=== PATIENT | male | born 1970 | race Asian ===

== ENCOUNTER 2024-06-02 14:40 | Outpatient (AMB) | payer OTHER, SELFPAY ==
--- NOTE | 2024-06-02 14:27 | MHC.PC.OV ---
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 Intake Note: New patient visit Healthcare Science Specialist Required: Yes Healthcare Science Specialist Language: Urdu Healthcare Science Specialist Name: Fran [phone] Allergies No Known Allergies Allergy (Verified 06/02/24 14:55) Medication List - Last Reconciled 06/02/24 by Carrie Govea PA-C losartan mg PO DAILY rosuvastatin mg PO DAILY Tobacco use date assessed: 06/02/24 Dental Screening Dental Screen Date: 06/02/24 Did you have a dental visit in the last 12 months?: Yes Did you have a dental problem in the last 6 months where you did not have access to dental care?: No Was dental information given to patient?: Patient has dentist HPI DESIGN LEAD Establish Care HPI Details Patient is a 54-year-old male who presents today to establish care. He has a history of bilateral shoulder pain, elbow pain, hypertension and hyperlipidemia. He is transferring from [facility] and was last seen 3 months ago. Healthcare Science Specialist #[id number] is used today CV: Blood pressure today in the office 138/76. He is currently on losartan 25 mg. He is on rosuvastatin 5 mg, no myalgias Musculoskeletal: He reports bilateral shoulder and elbow pain that started about 2 years ago. He states it feels stiff and achy and is worse at night. No known trauma. No joint swelling. He has tried NSAID without improvement. He states that he has imaging done over a year ago and states he was told everything was normal. 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 1. Little interest or pleasure in doing things: not at all 2. Feeling down, depressed, or hopeless: not at all 3. Trouble falling or staying asleep, or sleeping too much: not at all 4. Feeling tired or having little energy: not at all 5. Poor appetite or overeating: not at all 6. Feeling bad about yourself - or that you are a failure or have let yourself or your family down: not at all 7. Trouble concentrating on things, such as reading the newspaper or watching television: not at all 8. Moving or speaking so slowly that other people could have noticed. Or the opposite - being so fidgety or restless that you have been moving around a lot more than usual: not at all 9. Thoughts that you would be better off or of hurting yourself in some way: not at all Total score: 0 Depression Screening Interpretation: Negative Depression Screening Done: Yes 79978 - PHQ-9 Billing: Yes Source: Developed by Drs. Sky Meek, Erika Chávez, Jessee Joel and colleagues, with an educational jessica from [employer]. Thrive Questionnaire Date Thrive assessed: 06/02/24 I am a: Patient What is your living situation today?: I do not have a steady places to live Within the past 12 months, did the food you bought not last and you didn't have the money to get more?: Never true Within the past 12 months, did you worry whether your food would run out before you got money to buy more?: Never true Do you have trouble paying for medicines?: No Do you have trouble getting transportation to medical appointments?: No Do you have trouble paying your heating and electricity bill?: No Do you have trouble taking care of your child, family member or friend?: No Do you have trouble with day-to-day activities such as bathing, preparing meals, shopping, managing finances, etc.?: No Are you currently unemployed and looking for a job?: No Are you interested in more education?: No Please select the resources that you would like help with: None Currently or been in a relationship where the following occur: No concerns reported THRIVE Score: 1 AUDIT C Alcohol Use Questionnaire (AUDIT-C) 1. How often do you have a drink containing alcohol?: Monthly or less 2. How many drinks containing alcohol do you have on a typical day when you are drinking?: 1 or 2 3. How often do you have six or more drinks on one occasion?: Never Total Score: 1 TESS-7 AMB Questionnaire TESS-7 Date TESS - 7 assessed: 06/02/24 Feeling nervous, anxious, or on edge: 0 = Not at all Not being able to stop or control worryin = Not at all Worrying too much about different things: 0 = Not at all Trouble relaxin = Not at all Being so restless that it is hard to sit still: 0 = Not at all Becoming easily annoyed or irritable: 0 = Not at all Feeling afraid as if something awful might happen: 0 = Not at all Total TESS-7 score (0-4 normal; 5-9 mild; 10-14 moderate; 15-21 severe): 0 Source: Developed by Drs. Sky Meek, Erika Chávez, Jessee Joel and colleagues, with an educational jessica from [employer]. TESS-7 Assessment Billing TESS-7 Assessment Tool: TESS-7 Assessment 03336 Physical exam (Primary Care) Tobacco/Smoking Status: Tobacco use Status Tobacco use date assessed 06/02/24 06/02/24 14:29 Patient Tobacco Use Status Never used Tobacco 06/02/24 14:29 e-Cigarette/Vaping Use Never Used 06/02/24 14:29 Depression Screening Interpretation: Negative Currently or been in a relationship where the following occur: No concerns reported Const Orientation/consciousness: patient oriented x3 HENMT Ears: hearing grossly normal bilaterally Neck Thyroid: Thyroid normal Lymphatic: no lymphadenopathy noted Resp Auscultation: clear to auscultation bilaterally Cardio Rate: regular rate Rhythm: regular rhythm Heart sounds: S1 normal heart sound present and S2 normal heart sound present GI Inspection: Yes normal to inspection Palpation (GI): Soft to palpation and Other GI palpation findings present (nontender, no cva tenderness) Auscultation: normoactive bowel sounds Rectal Exam - Male: Yes deferred Skin General skin exam: no rashes or lesions noted Neuro General: patient oriented x3, gait normal and no focal motor deficits Coding Level of Care Code New Pt Level 4 (37641) Complex EM visit Add On G2211 Diagnoses Primary hypertension I10 Hypertension type: primary hypertension Dyslipidemia E78.5 Polyarthralgia M25.50 Chronic pain of both shoulders M25.511; M25.512; G89.29 Chronicity: chronic Bilateral elbow joint pain M25.521; M25.522 Additional Codes PHQ-9 - 56774 - PHQ-9 Billing: Yes ([id number]) TESS-7 Assessment Billing - TESS-7 Assessment Tool: TESS-7 Assessment 97517 ([id number]) Assessment & Plan Assessment & Plan (1) HTN (hypertension): Code(s): I10 - Essential (primary) hypertension Category: Medical Qualifiers: Hypertension type: primary hypertension Qualified Code(s): I10 - Essential (primary) hypertension Plan: wnl continue losartan (2) Dyslipidemia: Code(s): E78.5 - Hyperlipidemia, unspecified Category: Medical Plan: will hold crestor x 3-4 weeks to see if myalgias and joint pains improve (3) Polyarthralgia: Code(s): M25.50 - Pain in unspecified joint Category: Medical Plan: xrs ordered labs ordered 1 month follow up short term follow up (4) Bilateral shoulder pain: Code(s): M25.511 - Pain in right shoulder; M25.512 - Pain in left shoulder Category: Medical Qualifiers: Chronicity: chronic Qualified Code(s): M25.511 - Pain in right shoulder; M25.512 - Pain in left shoulder; G89.29 - Other chronic pain Plan: see above (5) Bilateral elbow joint pain: Code(s): M25.521 - Pain in right elbow; M25.522 - Pain in left elbow Category: Medical Plan: see above Orders: Orders Comprehensive [place]. Panel Fast Today E78.5 - Hyperlipidemia, unspecified, I10 - Essential (primary) hypertension Hemoglobin A1c Today E78.5 - Hyperlipidemia, unspecified, I10 - Essential (primary) hypertension, R73.01 - Impaired fasting glucose TSH reflex Free T4 Today E78.5 - Hyperlipidemia, unspecified, I10 - Essential (primary) hypertension Rheumatoid Factor Today M25.50 - Pain in unspecified joint, M25.511 - Pain in right shoulder, M25.512 - Pain in left shoulder, M25.521 - Pain in right elbow, M25.522 - Pain in left elbow XR shoulder LT min 2V Today M25.50 - Pain in unspecified joint, M25.511 - Pain in right shoulder, M25.512 - Pain in left shoulder, M25.521 - Pain in right elbow, M25.522 - Pain in left elbow Complete Blood Count Auto Diff Today E78.5 - Hyperlipidemia, unspecified, I10 - Essential (primary) hypertension UA CC w/rflx Micro + Cult Today E78.5 - Hyperlipidemia, unspecified, I10 - Essential (primary) hypertension, Z13.220 - Encounter for screening for lipoid disorders Lipid Panel Today E78.5 - Hyperlipidemia, unspecified, I10 - Essential (primary) hypertension Lyme IgG/IgM w/reflex to WB Today M25.50 - Pain in unspecified joint, M25.511 - Pain in right shoulder, M25.512 - Pain in left shoulder, M25.521 - Pain in right elbow, M25.522 - Pain in left elbow Erythrocyte Sedimentation Rate Today M25.50 - Pain in unspecified joint, M25.511 - Pain in right shoulder, M25.512 - Pain in left shoulder, M25.521 - Pain in right elbow, M25.522 - Pain in left elbow LUANN Reflex Titer and Pattern Today M25.50 - Pain in unspecified joint, M25.511 - Pain in right shoulder, M25.512 - Pain in left shoulder, M25.521 - Pain in right elbow, M25.522 - Pain in left elbow XR shoulder RT min 2V Today M25.50 - Pain in unspecified joint, M25.511 - Pain in right shoulder, M25.512 - Pain in left shoulder, M25.521 - Pain in right elbow, M25.522 - Pain in left elbow XR elbow LT min 3V Today M25.50 - Pain in unspecified joint, M25.511 - Pain in right shoulder, M25.512 - Pain in left shoulder, M25.521 - Pain in right elbow, M25.522 - Pain in left elbow XR elbow RT min 3V Today M25.50 - Pain in unspecified joint, M25.511 - Pain in right shoulder, M25.512 - Pain in left shoulder, M25.521 - Pain in right elbow, M25.522 - Pain in left elbow Prostate Specific Antigen Scr Today Z01.89 - Encounter for other specified special examinations Referrals Orthopedics Referral M25.511 - Pain in right shoulder, M25.512 - Pain in left shoulder, M25.521 - Pain in right elbow, M25.522 - Pain in left elbow Gastroenterology Referral Z12.11 - Encounter for screening for malignant neoplasm of colon Medications: New diclofenac sodium 1% (Voltaren Arthritis Pain) 4 grams topical QID 100 grams 4RF losartan 25 mg PO DAILY 90 tabs 3RF
[2024-06-02 15:01] VITALS: BP 138/76; PULSE 64; RESP 14; O2SAT 98; BMI 25.0
--- OUTSIDE RECORDS SUMMARY | 2024-06-02 17:18 | XMS_ITS | Clinical Summary ---
Author Organization [facility] Address [address] [place] [address] Care Team Providers Care Liner Worker Name Role Phone Maribeth Campa PA-C Primary Care Provider [phone] Source Comments PLEASE NOTE, if this patient is a minor, it may be UNLAWFUL to discuss sensitive information that is contained in these records (such as FAMILY PLANNING, MENTAL HEALTH or SUBSTANCE ABUSE) with the minor patient's parent or other person without the patient's specific authorization.[facility] Allergies No known active allergies Medications acetaminophen (TYLENOL) 325 mg tabletIndication s:Left elbow pain Take 1 Tablet by mouth every 6 (six) hours as needed for pain 30 Tablet 1 4 Active fenofibric acid, choline, (TRILIPIX) [address] capsuleIndicatio ns:Mixed hyperlipidemia,H ypertriglyceride maurizio Take 1 Capsule by mouth once daily New Rx. Patient to discontinue Gemfibrozil 90 Capsule 4 Active losartan (COZAAR) 25 mg tabletIndication s:Primary hypertension Take 1 Tablet by mouth every morning for blood pressure 90 Tablet 1 4 Active rosuvastatin (CRESTOR) 5 mg tabletIndication s:Mixed hyperlipidemia,H ypertriglyceride maurizio Take 1 Tablet by mouth nightly at bedtime New Rx. 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 No significant effusion Rash at rt leg delcid region 03/22/2020 Dizziness 01/07/2019 Overview (01/04/2022): 12/26/2021: Rayus: MRI of head: FINDINGS: No diffusion abnormalities are identified to suggest an acute or subacute infarct. No mass effect or midline shift is seen. The ventricles and sulci are slightly commensurately prominent consistent with diffuse loss. There are scattered areas of hyperintense T2 and FLAIR signal in the periventricular and subcortical white matter, and in the garcía which are most consistent with chronic microvascular ischemic changes. No extra-axial fluid collections are seen. The cerebellum appears normal. On postcontrast imaging, there is no abnormal parenchymal or leptomeningeal enhancement. No pathologic magnetic susceptibility artifact is identified on the gradient refocused acquisition. The craniovertebral junction, marrow signal, and midline structures are normal. The major intracranial flow-voids at the level of the venetie ira of [place] are preserved. The dural venous sinus flow-voids are maintained. The mastoid air cells are well-aerated. There is mucoperiosteal thickening in the bilateral maxillary and ethmoid sinuses and in the right greater than left sphenoid sinuses. IMPRESSION: 1. There are no acute bleeds or territorial infarcts. No masses are demonstrated. There are no masses or areas of abnormal enhancement. 2. There are chronic microvascular ischemic changes and there is diffuse volume loss. Tendinitis of right shoulder 01/07/2019 Hyperthyroidism 08/26/2018 Low back pain 04/22/2018 Overview (10/25/2018): 04/20/18 - 05/31/18: [facility] 2x/wk x 6 wks 09/19/18 - Lumbar xray: no acute findings. Mild degenerative changes. Lichen simplex chronicus 01/31/2016 Left shoulder pain 05/02/2015 Overview (03/11/2019): Going to [facility] With [facility] at [facility] EMG negative 02/22/15 - xray left shoulder: negative. Hypertriglyceridemia 01/12/2013 Vitamin D deficiency disease 01/12/2013 HTN (hypertension) 01/12/2013 Encounters Date Type Department Care Team Description 03/25/2024 11:00 AM EST Office Visit [address] [phone] Deep Odom, PharmD Ena Bolanos Hypertension, unspecified type (Primary Dx); Medication management 03/25/2024 Travel from Last 3 Months Immunizations Name Administration Dates Next Due Flu, Preservative Free 12/25/2022,2020,12/21/2019,2018,04/23/2017 Hep B, Adult/Adol (ENERGIX/RECOMBIVAX) 07/22/2012,08/15/2011,07/16/2011 INFLUENZA, SEASONAL, INJECTABLE 12/26/19 16,01/12/2015,03/30/2014,2011 INFLUENZA, SEASONAL, INJECTA BLE, PRESERVATIVE FREE 01/12/2013 MMR (MMR II/Priorix) 06/12/2011,02/05/2011 TDAP 06/12/2023,06/12/2011 Td(adult),2 Lf tetanus toxoid,preservative free 02/05/2011 Family History Medical History Relation Name Comments Asthma Father Asthma Mother Hypertension Mother Relation Name Status Comments Brother Alive Father Mother Alive Sister 1 Alive Sister 2 Alive Social History Tobacco Use Types Packs/Day Years Used Date Smoking Tobacco: Former Cigarettes Passive Smoke Exposure: Never Smokeless Tobacco: Former Chew Tobacco Cessation:Counseling Given: Not Answered Comments:chewing tobacco since age 14; Alcohol Use Standard Drinks/Week Comments No 0 (1 standard drink = 0.6 oz pur e alcohol) Social Connections Answer Date Recorded Connectedness 0 12/08/2023 Financial Resource Strain Answer Date R ecorded Financial Resource Strain 0 2018 Stress Answer Date Recorded Stress 0 11/11/2018 Physical Activity Answer Date Recorded Physical Activity 0 11/11/2018 Food Insecurity Answer Date Recorded Food 0 12/18/2023 Transportation Needs Answer Date Record ed Transportation 0 11/11/2018 Housing Stability Answer Date Recorded Housing 0 11/11/2018 Safety and Environment Answer Date Cholo rded Safety 0 11/11/2018 Utilities Answer Date Recorded Utilities 0 11/11/2018 Employment Answer Date Recorded Stress 0 12/08/2023 Sex and Gender Information Value Date Recorded Sex Assigned at Male 12/16/2016 8:31 AM PDT Legal Sex Male 11:36 AM PDT Gender Identity Male 12/16/2016 8:31 AM PDT Sexual Orientation Straight 12/16/2016 8: 31 AM PDT 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 Not on file Not on file Not on file Last Filed Vital Signs Vital Sign Reading Time Taken Comments Blood Pressure 124/80 03/25/2024 10:46 AM EST Pulse 88 03/25/2024 10:46 AM EST Temperature 36.9 ??C (98.4 ??F) 03/25/2024 10:[address] Respiratory Rate 16 03/25/2024 10:46 AM EST Oxygen Saturation 99% 03/25/2024 10:46 AM EST Inhaled Oxygen Concentration - - Weight 83.6 kg (184 lb 4.8 oz) 03/25/2024 10:46 AM EST Height 180.3 cm (5' 11 ) 03/25/2024 10:46 AM EST Body Mass Index 25.7 03/25/2024 10:46 AM EST Plan of Treatment Upcoming Encounters Date Type Department Care Team (Late st Contact Info) Description 06/30/2024 1:00 PM EDT Office Visit [facility] [address] [place] [phone] Deep Odom, PharmD [address] [place] [address] 07/14/2024 10:40 AM EDT Office Visit [facility] [address] [place] [phone] Maribeth Campa PA-C [address] [place] [address] Health Maintenance Due Date Last Done Comments CT Colonography 2014 Colonoscopy 2014 Colorectal Cancer Screening 2014 FIT/gFOBT 2014 Fecal DNA 2014 Flexible Sigmoidoscopy 2014 Imm-Zoster, Recombinant (1 of 2) 2019 Depression Annual Screen 2024 06/12/2023, 03/25 Annual Preventive Care Visit 06/11/2024, 08/26/2018, 04/23/2017, Additional history exists Tobacco Screening 10/01/2024 10/02/2023, , 04/23/2017 Dental BW 12/16/2024 12/15/2023, 05/22, 10/23/2022, Additional history exists Dental Examination 12/16/2024 12/15/2023, 0 06/05/2023, 10/23/2022, Additional history exists Dental Perio Charting 12/16/2024 12/15/2023 , 06/05/2023, 10/23/2022, Additional history exists Dental Prophy 12/16/2024 12/15/2023, 05/22, 10/23/2022 Lipid Screening 12/24/2024 12/25/2023, 09/21, 06/18/2023, Additional history exists Diabetes Screening 12/24/2026 12/25/2023, 0 10/04/2023, 06/18/2023, Additional history exists Dental FMX/Pano 02/02/2027 01/31/2022 Imm-DTaP/Tdap/Td (3 - Td or Tdap) 06/11/2033 06/12/2023, 06/12/2011, 02/05/2011 Imm-Hepatitis B Completed 07/22/2012, 07/23, 07/16/2011 HIV Screening Completed 01/20/2013 Hepatitis C Screening Completed 01/20/2013 [id number] Completed 12/24/2023, 12/22, 03/13/2021, Additional history exists Imm-Influenza Completed 12/24/2023, 06/2022, 02/20/2022, Additional history exists Alcohol and Drug Screen Completed 03/25/19, 06/12/2023, 06/19/2022, Additional history exists Goals Goal Patient Goal Type Associated Problems Recent Progress Patient-Stated? Author Blood Pressure < 140/90 Blood Pressure HTN (hypertension) 124/80( 025 10:46 AM EST) No Vandana Chávez, Zaira Procedures Procedure Name Priority Date/Time Associated Diagnosis Comments ASSAY OF BLOOD/URIC ACID Routine 03/31/2024 9:37 AM EST Hyperuricemia COMPREHENSIVE METABOLIC PANEL Routine 12/25/2023 9:53 AM EDT Mixed hyperlipidemia Hypertriglyceridem ia LIPID PANEL Routine 12/25/2023 9:53 AM EDT Mixed hyperlipidemia Hypertriglyceridem ia COMP PERIODONTAL EVALUATION - NEW/EST PATIENT Routine 12/15/2023 9:40 AM EDT [facility] BITEWINGS - FOUR RADIOGRAPHIC IMAGES Routine 12/15/2023 9:40 AM EDT [facility] PROPHYLAXIS - ADULT Routine 12/15/2023 9 :40 AM EDT [facility] PERIODIC ORAL EVALUATION ESTABLISHED PATIENT Routine 12/15/2023 9:40 AM EDT [facility] INTRAORAL - COMP SERIES OF RADIOGRAPHIC IMAGES Routine 01/31/2022 2:20 PM EST Gingivitis, chronic, plaque induced ANTIBODY HIV-1&HIV-2 SINGLE RESULT Routine 01/20/2013 3:16 PM EDT Needle stick injury ACUTE HEPATITIS PANEL Routine 01/20/2013 3:16 PM EDT Needle stick injury from Last 3 Months or Most Recently Relevant to Health Maintenance Results * ASSAY OF BLOOD/URIC ACID (03/31/2024 9:37 AM EST) URIC ACID 4.8 4.0 - 8.0 mg/dL [facility] Comment: Therapeutic target for gout patients: <6.0 mg/dL ?? Blood Blood / Unknown 03/31/2024 9 :37 AM EST 03/31/2024 9:37 AM EST Narrative [facility] - 04/01/2024 3:17 AM EST FASTING:YES us Maribeth Campa PA-C LAB - BLOOD DRAW Final Resu lt [facility] [address] [address], [facility] [address] [place] [address] * (ABNORMAL) LIPID PANEL (12/25/2023 9:53 AM EDT) CHOLESTEROL, TOTAL 311(H) <200 mg/dL [employer] [facility] HDL CHOLESTEROL 40 > OR = 40 mg/dL [employer] [facility] TRIGLYCERIDES 2,415(H) <150 mg/dL [facility] Comment: Verified by repeat analysis. If a non-fasting specimen was collected, consider repeat triglyceride testing on a fasting specimen if clinically indicated. Giron et al. J. of Clin. Lipidol. 2015;9:129-169. There is increased risk of pancreatitis when the triglyceride concentration is very high (> or = 500 mg/dL, especially if > or = 1000 mg/dL). Giron et al. J. of Clin. Lipidol. 2015;9:129-169. LDL-CHOLESTEROL See Note [facility] Comment: LDL cholesterol not calculated. Triglyceride levels greater than 400 mg/dL invalidate calculated LDL results. Reference range: <100 Desirable range <100 mg/dL for primary prevention; ?? <70 mg/dL for patients with CHD or diabetic patients with > or = 2 CHD risk factors. LDL-C is now calculated using the Gabriele-Mary calculation, which is a validated novel method providing better accuracy than the Friedewald equation in the estimation of LDL-C. Gabriele SS et al. CURTIS. 2013;310(19): 0015-9415 (http://education.Graftworx.SDI/faq/DNT973) CHOL/HDLC RATIO 7.8(H) <5.0 (calc) [employer] [facility] NON-HDL CHOLESTEROL 271(H) <130 mg/dL (calc) [facility] Comment: Non-HDL level > or = 220 is very high and may indicate genetic familial hypercholesterolemia (FH). Clinical assessment and measurement of blood lipid levels should be considered for all first-degree relatives of patients with an FH diagnosis. For patients with diabetes plus 1 major ASCVD risk factor, treating to a non-HDL-C goal of <100 mg/dL (LDL-C of <70 mg/dL) is considered a therapeutic option. Blood Blood / Unknown 12/25/2023 9 :53 AM EDT 12/25/2023 9:54 AM EDT Narrative [facility] - 12/26/2023 1:34 PM EDT FASTING:YES Maribeth Campa PA-C LAB - BLOOD DRAW Final Resu lt [facility] [address] [address], [facility] [address] [place] [address] * COMPREHENSIVE METABOLIC PANEL (12/25/2023 9:53 AM EDT) Pathologist [facility] GLUCOSE 97 65 - 99 mg/dL [facility] Comment: ?Fasting reference interval UREA NITROGEN (BUN) 15 7 - 25 mg/dL [facility] CREATININE (blood) 1.14 0.70 - 1.30 mg/dL [facility] EGFR 76 > OR = 60 mL/min/1. 73m2 [facility] BUN/CREATININE RATIO SEE NOTE: [facility] Comment: ?? Not Reported: BUN and Creatinine are within ?? reference range. ? SODIUM 135 135 - 146 mmol/L [facility] POTASSIUM 3.7 3.5 - 5.3 mmol/L [facility] CHLORIDE 101 98 - 110 mmol/L [facility] CARBON DIOXIDE 23 20 - 32 mmol/L [facility] CALCIUM 9.7 8.6 - 10.3 mg/dL [facility] PROTEIN, TOTAL 7.3 6.1 - 8.1 g/dL [facility] ALBUMIN 4.9 3.6 - 5.1 g/dL [facility] GLOBULIN 2.4 1.9 - 3.7 g/dL (calc) [facility] ALBUMIN/GLOBULI N RATIO 2.0 1.0 - 2.5 (calc) [facility] BILIRUBIN, TOTAL 0.7 0.2 - 1.2 mg/dL [facility] ALKALINE PHOSPHATASE 46 35 - 144 U/L [facility] AST 32 10 - 35 U/L [employer] [facility] [facility] Comment: Results slightly increased due to lipemia. ALT 35 9 - 46 U/L [facility] Blood Blood / Unknown 12/25/2023 9 :53 AM EDT 12/25/2023 9:54 AM EDT Narrative [facility] - 12/26/2023 1:34 PM EDT FASTING:YES us Maribeth Campa PA-C LAB - BLOOD DRAW Final Resu lt [facility] [address] [address], [place] [facility] [address] [place] [address] * HIV-1 & HIV-2 ANTIBODIES (01/20/2013 3:16 PM EDT) HIV 1 AND 2 ANTIBODY SCREEN NEGATIVE NEGATIVE [facility] Comment:Performer: [facility] (ML) Blood specimen (specimen) Blood / Unknown 01/20/2013 3:16 PM EDT 01/20/2013 3:18 PM EDT Narrative [facility] - 01/21/2013 8:07 AM EDT [facility] [address] [place] [address] [place] [id number] ORD# [id number] Mj Pond MD LAB - BLOOD DRAW Edited Performing Organization Address City/[facility]/ZIP Co de Phone Number [facility] [address] [place] [address], * (ABNORMAL) ACUTE HEPATITIS PANEL (01/20/2013 3:16 PM EDT) HEPATITIS B SURFACE ANTIGEN NEGATIVE NEGATIVE [facility] Comment:Performer: [facility] (ML) HEPATITIS C VIRUS ANTIBODY NEGATIVE NEGATIVE [facility] Comment:Performer: [facility] (ML) HEPATITIS B CORE ANTIBODY IGM NEGATIVE NEGATIVE [facility] Comment:Performer: [facility] (ML) HEPATITIS A ANTIBODY TOTAL POSITIVE(A) NEGATIVE [facility] Comment:Performer: [facility] (ML) Blood specimen (specimen) Blood / Unknown 01/20/2013 3:16 PM EDT 01/20/2013 3:18 PM EDT Narrative [facility] 01[facility]20/2013 7:00 PM EDT [facility] [address] [place] [address] PT ID [id number] ORD# [id number] us Mj Pond MD LAB - BLOOD DRAW Edited [facility] [address] [place] [address], from Last 3 Months or Most Recently Relevant to Health Maintenance Insurance [employer] Member Subscriber Plan / Payer (Ef fective 2024-Present) Name:Garcia Bnun Relation to Subscriber:Self Name:Garcia Bunn Payer ID:[id number] Type:Indemnity Address: [facility] [address] [place] [address] [employer] Care Teams Liner Worker Relationship Specialty Start Date End Date Maribeth Campa PA-C [facility] [place] [address] PCP - General Primary Care 03/11/23
== END 2024-06-02 15:39 | disposition home or self-care (01) ==
LOC: HO.HMCFM 14:41
PROVIDERS: PCP Physician Assistant; Visit Provider Physician Assistant
DX: I10 Essential (primary) hypertension (principal); E78.5 Hyperlipidemia, unspecified; M25.50 Pain in unspecified joint; M25.511 Pain in right shoulder; M25.512 Pain in left shoulder; G89.29 Other chronic pain; M25.521 Pain in right elbow; M25.522 Pain in left elbow

== ENCOUNTER → 2024-06-02 14:40 | Outpatient (BNVA) | payer OTHER, SELFPAY | PROVIDERS: PCP Physician Assistant; Visit Provider Physician Assistant | DX: I10 Essential (primary) hypertension (principal); E78.5 Hyperlipidemia, unspecified; M25.50 Pain in unspecified joint; M25.511 Pain in right shoulder; M25.512 Pain in left shoulder; G89.29 Other chronic pain; M25.521 Pain in right elbow; M25.522 Pain in left elbow | CPT/HCPCS: 96127; 99202 ==

== ENCOUNTER 2024-06-03 06:53 | Outpatient (REF) | payer OTHER, SELFPAY ==
--- NOTE | ~2024-06-03 | XR_ITS ---
EXAMINATION: XR ELBOW, RIGHT CLINICAL INFORMATION: M25.521 - Pain in right elbow COMPARISON: None available. TECHNIQUE: AP, lateral, and oblique views of the right elbow. FINDINGS: No fracture, dislocation, or suspicious bone lesion. Normal bone mineralization. Normal alignment. Joint spaces are preserved. No significant arthropathy. Epicondyles appear normal. No significant joint effusion. Soft tissues appear normal. XR/XR elbow RT min 3V IMPRESSION: Normal right elbow. Electronically signed by: Mario Friedman MD 06/03/2024 09:36 AM EDT
--- NOTE | ~2024-06-03 | XR_ITS ---
EXAMINATION: XR SHOULDER, RIGHT CLINICAL INFORMATION: M25.521 - Pain in right elbow COMPARISON: None available. TECHNIQUE: AP external rotation, Grashey, scapular Y, and axillary views of the right shoulder. FINDINGS: Normal bone mineralization. No fracture, dislocation, or suspicious bone lesion. Normal alignment. The glenohumeral joint is normal. The AC joint demonstrates minimal spurring of the superior surface. There is a type II acromion. No undersurface spurring. The subacromial space is preserved. Remainder of the soft tissue and bony structures appear normal. XR/XR shoulder RT min 2V IMPRESSION: Minimal spurring of the AC joint. Otherwise normal right shoulder. Electronically signed by: Mario Friedman MD 06/03/2024 09:38 AM EDT
--- NOTE | ~2024-06-03 | XR_ITS ---
EXAMINATION: XR ELBOW, LEFT CLINICAL INFORMATION: M25.521 - Pain in right elbow COMPARISON: None available. TECHNIQUE: AP, lateral, and oblique views of the left elbow. FINDINGS: No fracture, dislocation, or suspicious bone lesion. Normal bone mineralization. Normal alignment. Joint spaces are preserved. No significant arthropathy. Epicondyles appear normal. No significant joint effusion. Soft tissues appear normal. XR/XR elbow LT min 3V IMPRESSION: Normal left elbow. Electronically signed by: Mario Friedman MD 06/03/2024 09:35 AM EDT
--- NOTE | ~2024-06-03 | XR_ITS ---
EXAMINATION: XR SHOULDER, LEFT CLINICAL INFORMATION: M25.521 - Pain in right elbow COMPARISON: None available. TECHNIQUE: AP external rotation, Grashey, scapular Y, and axillary views of the left shoulder. FINDINGS: Normal bone mineralization. No fracture, dislocation, or suspicious bone lesion. Normal alignment. The glenohumeral joint is normal. The AC joint demonstrates minimal spurring of the superior surface. There is a type II acromion. No undersurface spurring. The subacromial space is preserved. Remainder of the soft tissue and bony structures appear normal. XR/XR shoulder LT min 2V IMPRESSION: Minimal spurring of the AC joint. Otherwise normal left shoulder. Electronically signed by: Mario Friedman MD 06/03/2024 09:37 AM EDT
[2024-06-03 07:35] LABS: MANUAL DIFF FLAG NO
[2024-06-03 08:41] LABS: Basophils Percent Auto 0.6 % (0-2); Eosinophils Absolute Auto 0.3 X10*3/uL (0.0-0.4); Eosinophils Percent Auto 5.3 % (0-4); Hematocrit 37.2 % (42.0-52.0); Hemoglobin 13.6 g/dl (14.0-18.0); Imm Gran Abs Auto 0.01 X10*3/uL (0.00-0.03); Imm Gran Pct Auto 0.2 % (0.0-0.4); Lymphocytes Absolute Auto 1.4 X10*3/uL (1.2-4.9); Lymphocytes Percent Auto 29.7 % (20-40); Mean Corpuscular HGB Conc 36.6 g/dl (31.0-36.0); Mean Corpuscular Hemoglobin 30.9 pg (27.0-33.0); Mean Corpuscular Volume 84.5 fL (80.0-98.0); Mean Platelet Volume 12.9 fL (9.4-12.4); Monocytes Absolute Auto 0.2 X10*3/uL (0.1-1.2); Monocytes Percent Auto 5.1 % (2-11); Neutrophils Absolute Auto 2.8 x10*3/uL (2.0-8.3); Neutrophils Percent Auto 59.1 % (45-73); Platelet Count 117 X10*3/uL (160-400); Red Cell Distribution Width 12.9 % (11.0-16.0); White Blood Count 4.8 X10*3/uL (4.8-10.8)
[2024-06-03 08:42] LABS: Estimated Average Glucose 103 mg/dL; Hemoglobin A1c % 5.2 % (<6.0)
[2024-06-03 08:44] LABS: Appearance Urine Clear; Color Urine Yellow; Glucose Urine UA Negative (Negative); Leukocyte Esterase Urine Negative (Negative); Nitrite Urine Negative (Negative); Specific Gravity - Urine 1.015 (1.005-1.025); Urine Blood Negative (Negative); Urine Ketones Negative (Negative); Urine Protein Negative (Neg-Trace)
[2024-06-03 09:19] LABS: Erythrocyte Sedimentation Rate 5 MM/HR (0-15)
[2024-06-03 09:32] LABS: Alanine Aminotransferase 45 U/L (0-40); Albumin Level 4.5 g/dL (3.5-5.0); Alkaline Phosphatase 55 U/L (39-117); Anion Gap 17 (12-20); Aspartate Amino Transferase 53 U/L (5-37); Bilirubin Total 0.5 mg/dL (0.0-1.0); Blood Urea Nitrogen 12 mg/dL (9-16); Calcium 9.2 mg/dL (8.4-10.2); Carbon Dioxide 17 mmol/L (22-29); Chloride 109 mmol/L (96-108); Cholesterol 258 mg/dL (<200); Estimated Glomerular Filt Rate > 60; Glucose Fasting 102 mg/dL (60-99); HDL Cholesterol 35 mg/dL (>40); Prostate Specific Antigen Scr 1.64 ng/mL (<0.05-4.0); Sodium 139 mmol/L (135-145); Total Protein 8.5 g/dL (6.5-8.0)
[2024-06-03 09:35] LABS: TSH reflex Free T4 0.53 uIU/mL (0.32-4.0)
[2024-06-03 11:19] LABS: Triglycerides 1826 mg/dL (<150)
[2024-06-04 13:23] LABS: Lyme Abs Screen <0.90 index
[2024-06-10 15:32] LABS: Anti Nuclear Antibody Screen NEGATIVE (NEGATIVE)
== END 2024-06-03 06:54 | disposition home or self-care (01) ==
LOC: HO.XRAY 06:53
PROVIDERS: PCP Physician Assistant; Visit Provider Physician Assistant
DX: M25.522 Pain in left elbow (principal); M25.521 Pain in right elbow; M25.511 Pain in right shoulder; M25.512 Pain in left shoulder; M25.50 Pain in unspecified joint; R73.01 Impaired fasting glucose; E78.5 Hyperlipidemia, unspecified; I10 Essential (primary) hypertension; Z13.220 Encounter for screening for lipoid disorders; Z01.89 Encounter for other specified special examinations
CPT/HCPCS: 36415; 73030; 73080; 80053; 80061; 81003; 83036; 84153; 84443; 85025; 85652; 86038; 86431; 86617; 86618

== ENCOUNTER → 2024-06-03 07:02 | Outpatient (BNV) | payer OTHER, SELFPAY | PROVIDERS: PCP Physician Assistant; Visit Provider Radiology Diagnostic Radiology | DX: M25.511 Pain in right shoulder (principal); M25.711 Osteophyte, right shoulder; M25.512 Pain in left shoulder; M25.712 Osteophyte, left shoulder; M25.521 Pain in right elbow; M25.522 Pain in left elbow | CPT/HCPCS: 73030; 73080 ==

== ENCOUNTER 2024-07-07 08:39 | Outpatient (AMB) | payer OTHER, SELFPAY ==
--- NOTE | 2024-07-07 08:46 | A.OFFPC_ITS ---
Vital Signs 07/07/24 08:50 07/07/24 09:00 Height 5 ft 11 in Weight 177 lb 2 oz BMI 24.7 BP 148/84 H 138/86 Blood Pressure Location Lt brachial Lt brachial Position Sitting Sitting Respiration 14 Pulse 63 Pulse Source Pulse Oximeter Pulse Oximetry (%) 100 Oxygen Delivery Method Room Air Intake Visit Reasons: labs, meds, joint pains Intake Note: Follow up labs, medication, joint pain. Commercial Subcontractor Required: Yes Commercial Subcontractor Language: [facility] Commercial Subcontractor Name: Jacob [id number] Allergies No Known Allergies Allergy (Verified 07/07/24 08:46) Medication List - Last Reconciled 07/07/24 by Carrie Govea PA-C allopurinol 300 mg PO DAILY diclofenac sodium 1% (Voltaren Arthritis Pain) 4 grams topical QID fenofibrate 160 mg PO DAILY fenofibric acid (choline) mg PO DAILY losartan 25 mg PO DAILY rosuvastatin 5 mg PO DAILY Tobacco use date assessed: 07/07/24 Dental Screening Dental Screen Date: 06/02/24 HPI labs, meds, joint pains HPI Details Patient is a 54-year-old male who presents today for a follow up. He is relatively new here in transfer from [facility]. He has a history of bilateral shoulder pain, elbow pain, hypertension and hyperlipidemia. [facility]or Emilio#[id number] is used today CV: Blood pressure today in the office 138/76. He is currently on losartan 25 mg. He is on rosuvastatin 5 mg and fenofibrate 160 mg daily. Last lipids were very elevated. Triglycerides were 1600. States that he is mostly compliant with fenofibrate and Crestor. He does not drink alcohol. He states that he could do a little bit better with the diet. Musculoskeletal: He reports bilateral shoulder and elbow pain that started about 2 years ago. He states it feels stiff and achy and is worse at night. No known trauma. No joint swelling. He has tried NSAID without improvement. He states that he has imaging done over a year ago and states he was told everything was normal. -he recently had labs completed which di d show rheumatoid factor positive. -he is booked with ortho. -x-rays were reviewed today in office. GI: Last LFTs were elevated. No known history of this per patient. He did have an ultrasound ordered but states that he did not know if he should book something. He did not repeat his liver tests are hepatitis panel. He states that he does not have any abdominal pain and discoloration of the skin. No nausea, vomiting or weight loss. No bloating. 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 [employer] Current occupational exposures/hazards: Yes (Works around chemicals) Cognitive needs: No Hearing needs: No Vision needs: Yes (glasses) Questionnaire Thrive Questionnaire Date Thrive assessed: 06/02/24 I am a: Patient What is your living situation today?: I choose not to answer this question Within the past 12 months, did the food you bought not last and you didn't have the money to get more?: I choose not to answer this question Within the past 12 months, did you worry whether your food would run out before you got money to buy more?: I choose not to answer this question Do you have trouble paying for medicines?: I choose not to answer this question Do you have trouble getting transportation to medical appointments?: I choose not to answer this question Do you have trouble paying your heating and electricity bill?: I choose not to answer this question Do you have trouble taking care of your child, family member or friend?: I choose not to answer this question Do you have trouble with day-to-day activities such as bathing, preparing meals, shopping, managing finances, etc.?: I choose not to answer this question Are you currently unemployed and looking for a job?: I choose not to answer this question Are you interested in more education?: I choose not to answer this question Please select the resources that you would like help with: None Currently or been in a relationship where the following occur: I choose not to answer THRIVE Score: 0 TESS-7 AMB Questionnaire TESS-7 Date TESS - 7 assessed: 06/02/24 Source: Developed by Drs. Sky Meek, Erika ChávezJessee and colleagues, with an educational jessica from [employer]. Physical exam (Primary Care) Vital Signs: Last Vital Signs Pulse 63 07/07/24 08:50 Resp 14 07/07/24 08:50 BP 138/86 07/07/24 09:00 Pulse Ox 100 07/07/24 08:50 Oxygen Delivery Method Room Air 07/07/24 08:50 BMI result Body Mass Index 24.7 Tobacco/Smoking Status: Tobacco use Status Tobacco use date assessed 07/07/24 07/07/24 08:51 Patient Tobacco Use Status Never used Tobacco 07/07/24 08:48 e-Cigarette/Vaping Use Never Used 07/07/24 08:48 Thrive Assessment: Date of Thrive Assessment Date Thrive assessed 06/02/24 07/07/24 08:48 Currently or been in a relationship where the following occur: I choose not to answer Const Orientation/consciousness: patient oriented x3 HENMT Ears: hearing grossly normal bilaterally Neck Thyroid: Thyroid normal Lymphatic: no lymphadenopathy noted Resp Auscultation: clear to auscultation bilaterally Cardio Rate: regular rate Rhythm: regular rhythm Heart sounds: S1 normal heart sound present and S2 normal heart sound present GI Inspection: Yes normal to inspection Palpation (GI): Soft to palpation and Other GI palpation findings present (nontender, no cva tenderness) Auscultation: normoactive bowel sounds Rectal Exam - Male: Yes deferred Skin General skin exam: no rashes or lesions noted Neuro General: patient oriented x3, gait normal and no focal motor deficits Coding Level of Care Code Est Pt Level 4 (39323) Complex EM visit Add On G2211 Diagnoses Elevated total protein R77.8 Anemia D64.9 Polyarthralgia M25.50 Dyslipidemia E78.5 Primary hypertension I10 Hypertension type: primary hypertension Elevated LFTs R79.89 Rheumatoid factor positive R76.8 Assessment & Plan Assessment & Plan (1) Elevated total protein: Code(s): R77.8 - Other specified abnormalities of plasma proteins Category: Medical Plan: labs ordered urine ordered will follow up pending tests (2) Anemia: Code(s): D64.9 - Anemia, unspecified Category: Medical Plan: labs ordered iron and b12 ordered colon ca screening ordered (3) Polyarthralgia: Code(s): M25.50 - Pain in unspecified joint Category: Medical Plan: continue diclofenac (4) Dyslipidemia: Code(s): E78.5 - Hyperlipidemia, unspecified Category: Medical Plan: increase crestor continue fenofibrate (5) HTN (hypertension): Code(s): I10 - Essential (primary) hypertension Category: Medical Qualifiers: Hypertension type: primary hypertension Qualified Code(s): I10 - Essential (primary) hypertension Plan: continue losartan 25 mg will recheck in 2 weeks and if elevated still will increase med (6) Elevated LFTs: Code(s): R79.89 - Other specified abnormal findings of blood chemistry Category: Medical Plan: labs ordered u/s ordered (7) Rheumatoid factor positive: Code(s): R76.8 - Other specified abnormal immunological findings in serum Category: Medical Plan: ref to rheum Orders: Orders Protein Electrophoresis,Ran Ur 07/07/24 R77.8 - Other specified abnormalities of plasma proteins Creatine Kinase Total 07/07/24 R77.8 - Other specified abnormalities of plasma proteins, R79.89 - Other specified abnormal findings of blood chemistry Referrals Rheumatology Referral M25.50 - Pain in unspecified joint, R76.8 - Other specified abnormal immunological findings in serum Medications: New rosuvastatin (Crestor) 10 mg PO DAILY 90 tabs 2RF allopurinol 300 mg PO DAILY 90 tabs 3RF
[2024-07-07 08:50] VITALS: BP 148/84; PULSE 63; RESP 14; O2SAT 100; BMI 24.7
[2024-07-07 09:00] VITALS: BP 138/86
--- OUTSIDE RECORDS SUMMARY | 2024-07-07 09:01 | XMS_ITS | Clinical Summary ---
Author Organization [facility] Address [address] [place] [address] Care Team Providers Care Vice President Sales And Marketing Name Role Phone Gwendolyn Roth NP Primary Care Provider Source Comments PLEASE NOTE, if this patient is a minor, it may be UNLAWFUL to discuss sensitive information that is contained in these records (such as FAMILY PLANNING, MENTAL HEALTH or SUBSTANCE ABUSE) with the minor patient's parent or other person without the patient's specific authorization.[facility] Allergies No known active allergies Medications blood-glucose meter kit (FREESTYLE LITE METER) monitoring kitIndications: Uncontrolled type 2 diabetes mellitus without complication, without long-term current use of insulin once daily Dx. E11.65 - Blood sugar check daily and prn 1 Kit 7 Active alcohol swabsIndication s:Type 2 diabetes mellitus without complication, without long-term current use of insulin ([facility]) Dx. E11.65 - Blood sugar check daily 100 Each 11 3 Active blood sugar diagnostic (FREESTYLE TEST) stripsIndicatio ns:Type 2 diabetes mellitus without complication, without long-term current use of insulin ([facility]) Dx. E11.65 - Blood sugar check daily . FREESTYLE LITE Test strips 100 Each 11 3 Active lancetsIndicati ons:Type 2 diabetes mellitus without complication, without long-term current use of insulin ([facility]) Dx. E11.65 - Blood sugar check daily FREESTYLE LANCETS 100 Each 11 3 Active latanoprost (XALATAN) 0.005 % ophthalmic solutionIndicat ions:Narrow angle glaucoma suspect of both eyes INSTILL 1 DROP IN BOTH EYES EVERY EVENING 2.5 mL 3 3 Active diphenhydrAMINE (BENADRYL) 25 mg capsuleIndicati ons:Urticaria Take 1 Capsule by mouth every 6 (six) hours as needed for itching 60 Capsule 4 Active lisinopriL 2.5 mg tabletIndicatio ns:Prescription refill,Type 2 diabetes mellitus without complication, without long-term current use of insulin ([facility]) Take 1 Tablet by mouth once daily 90 Tablet 1 4 Active loratadine (CLARITIN) 10 mg tabletIndicatio ns:Generalized pruritus Take 1 Tablet by mouth once daily as needed for allergies 90 Tablet 1 4 Active atorvastatin (LIPITOR) 20 mg tabletIndicatio ns:Prescription refill Take 1 Tablet by mouth once daily 90 Tablet 1 4 Active glipiZIDE (GLUCOTROL) 5 mg tabletIndicatio ns:Prescription refill,Type 2 diabetes mellitus without complication, without long-term current use of insulin ([facility]) Take 1 Tablet by mouth 2 (two) times daily before a meal 180 Tablet 1 4 Active metFORMIN (GLUCOPHAGE) 1,000 mg tabletIndicatio ns:Prescription refill,Type 2 diabetes mellitus without complication, without long-term current use of insulin ([facility]) Take 1 Tablet by mouth 2 (two) times daily with a meal 180 Tablet 1 4 Active SITagliptin phosphate (JANUVIA) 100 mg tablet Take 1 Tablet by mouth once daily 90 Tablet 1 4 Active levothyroxine 50 mcg tabletIndicatio ns:Prescription refill Take 1 Tablet by mouth once daily 90 Tablet 1 4 Active cholecalciferol (VITAMIN D-3) 50 mcg (2,000 unit) capsuleIndicati ons:Prescriptio n refill TAKE 1 CAPSULE BY MOUTH EVERY DAY 150 Capsule 4 4 Active Active Problems Problem Noted Date Diagnosed Date Class 1 obesity due to exces s calories with serious comorbidity and body mass index (BMI) of 30.0 to 30.9 in adult 10/28/2023 Astigmatism of both eyes 06/10/2015 Overview (06/10/2015): As per eye examination done 05/22/15 @ [facility].Dr. Adrianna Wilson Pinguecula of both eyes 06/10/2015 Overview (06/10/2015): As per eye examination done 05/22/15 @ [facility].Dr. Adrianna Wilson Presbyopia 06/10/2015 Overview (06/10/2015): As per eye examination done 05/22/15 @ [facility].Dr. Adrianna Wilson Uncontrolled type 2 diabetes mellitus with hyperglycemia ([facility]) 11/30/2014 Overview (11/30/2014): Lab Results Component Value Date HGBA1C 6.8* 11/30/2014 Primary hypertension 01/12/2013 Overview (06/21/2021): [facility] 05/18/16- No pulmonary embolus. Diet controlled currently Hypothyroidism 01/12/2013 Vitamin D deficiency disease 01/12/2013 Immunizations Immunization Administration Dates Next Due Flu, Adjuvant, 65y+ (Fluad) 12/24/2019 Flu, Preservative Free 02/21/2021,2019,03/10/2019,04/02 Hep B, Adult/Adol (ENERGIX/RECOMBIVAX) 2,08/15/2011,07/16/2011 INFLUENZA, SEASONAL, INJECTABLE 01/29/2016,01/06,03/18/2012 INFLUENZA, SEASONAL, INJECTA BLE, PRESERVATIVE FREE 01/12/2013 MMR (MMR II/Priorix) 06/22/2011,02/05/2011 Moderna COVID-19 Vaccine, re d cap blue label, 12+ Primary Series 08/09/2020,07/08/2020 PNEUMOCOCCAL CONJUGATE PCV 2 0 (Prevnar) 02/26/2023 PNEUMOCOCCAL POLYSACCHARIDE PPV23 05/07/2012 PPD 01/20/2013 TDAP 06/27/2021,06/12/2011,02/05/2011 ZOSTER VACCINE, RECOMBINANT (SHINGRIX) 3,11/21/2022 Family History Relation Name Status Comments Brother 2 Alive Father Mother Sister 1 Alive Social History Tobacco Use Types Packs/Day Years Used Date Smoking Tobacco: Never Smokeless Tobacco: Never Chew Tobacco Cessation:Counseling Given: Not Answered Alcohol Use Standard Drinks/Week Comments No 0 (1 standard drink = 0.6 oz pur e alcohol) Social Connections Answer Date Recorded Connectedness 1 09/02/2023 Financial Resource Strain Answer Date R ecorded Financial Resource Strain 1 2023 Stress Answer Date Recorded Stress 1 09/02/2023 Physical Activity Answer Date Recorded Physical Activity 0 11/14/2018 Food Insecurity Answer Date Recorded Food 1 09/02/2023 Transportation Needs Answer Date Record ed Transportation 1 09/02/2023 Housing Stability Answer Date Recorded Housing 1 09/02/2023 Safety and Environment Answer Date Cholo rded Safety 1 09/02/2023 Utilities Answer Date Recorded Utilities 1 09/02/2023 Employment Answer Date Recorded Stress 0 06/11/2021 Comments No Sex and Gender Information Value Date Recorded Sex Assigned at Female 04/02/2017 11:09 AM PST Legal Sex Female 11:36 AM PDT Gender Identity Female 04/02/2017 11:09 AM PST Sexual Orientation Straight 04/02/2017 11 :09 AM PST Occupation Industry Job Start Date Job End Date [employer] Not on file Not on file Not on file Last Filed Vital Signs Vital Sign Reading Time Taken Comments Blood Pressure 122/74 09/02/2023 8:51 AM EDT Pulse 61 09/02/2023 8:51 AM EDT Temperature 36.8 ??C (98.2 ??F) 09/02/2023 8:51 AM ED T Respiratory Rate 18 09/02/2023 8:51 AM EDT Oxygen Saturation 98% 09/02/2023 8:51 AM EDT Inhaled Oxygen Concentration - - Weight 74.4 kg (164 lb) 09/10/2023 9:07 AM EDT Height 157.5 cm (5' 2 ) 09/10/2023 9:07 AM EDT Body Mass Index 30 09/10/2023 9:07 AM EDT Plan of Treatment Health Maintenance Due Date Last Done Comments Anxiety Screening 1972 Dental Examination [address] Colonography 2017 Colonoscopy 2017 Fecal DNA 2017 Flexible Sigmoidoscopy 2017 Retinopathy Screening 05/07/2018 05/07/2017 (Managed by Outside Provider), 05/22/2015 Breast Cancer Screening (Mammogram) 04/20/2021 04/20/2019, 04/20/2019, 06/10/2018, Additional history exists Colorectal Cancer Screening 09/11/2023 FIT/gFOBT 09/11/2023 09/10/2022 Diabetes HbA1c 12/03/2023 09/02/2023, 12/08/2022, 09/04/2022, Additional history exists Diabetes Foot Exam 02/27/2024 02/26/2023, 0 11/21/2022, 10/25/2022, Additional history exists Alcohol and Drug Screen 2024 05/29/19 24, 09/04/2022, 06/21/2021, Additional history exists Depression Annual Screen 2024 024, 05/29/2023, 10/09/2017 Pap Smear 05/24/2024 05/24/2021, 11/30/2014 Annual Preventive Care Visit 09/01/202401/2024, 11/21/2022, 11/22/2020, Additional history exists Lipid Screening 09/01/2024 09/02/2023, 04/24, 11/29/2020, Additional history exists Serum Creatinine 09/01/2024 09/02/2023, , 05/09/2022, Additional history exists TSH Monitoring 09/01/2024 09/02/2023, 1208/2022, 09/04/2022, Additional history exists Tobacco Screening 09/01/2024 09/02/2023, , 11/21/2022 Urine Albumin Creatinine Rat io Screening 09/01/2024 09/02/2023, 05/09/2022, 11/29/2020, Additional history exists Cervical Cancer Screening 05/24/2026 Pap + HPV 05/24/2026 05/24/2021 Imm-DTaP/Tdap/Td (4 - Td or Tdap) 06/28/2031 06/27/2021, 06/12/2011, 02/05/2011 Imm-Hepatitis B Completed 01/16/2012, 07/23, 07/16/2011 HIV Screening Completed 11/29/2020 Hepatitis C Screening Completed 11/29/2020, 015 Imm-Pneumococcal Completed 02/26/2023, 05/07/2012 Imm-Zoster, Recombinant Completed 02/26/2023, 11/21 [id number] Completed 12/24/2023, 12/22, 03/13/2021, Additional history exists Imm-Influenza Completed 12/24/2023, 01/24, 02/21/2021, Additional history exists Cervical Ablation/Cold-Knife Conization Discontinued Cervical Cryotherapy Discontinued Colposcopy Discontinued Endometrial Biopsy Discontinued Excision/Leep Discontinued HPV Genotyping Discontinued Vaginal Pap Discontinued Vulvoscopy Discontinued Procedures Procedure Name Priority Date/Time Associated Diagnosis Comments THYROID CASCADING REFLEX PANEL Routine 09/02/2023 9:38 AM EDT Uncontrolled type 2 diabetes mellitus with hyperglycemia ([facility]) COMPREHENSIVE METABOLIC PANEL Routine 09/02/2023 9:38 AM EDT Uncontrolled type 2 diabetes mellitus with hyperglycemia ([facility]) LIPID PANEL Routine 09/02/2023 9:38 AM EDT Uncontrolled type 2 diabetes mellitus with hyperglycemia ([facility]) MICROALBUMIN/CREATININE RATIO, URINE, RANDOM Routine 09/02/2023 9:38 AM EDT Uncontrolled type 2 diabetes mellitus with hyperglycemia ([facility]) HEMOGLOBIN GLYCOSYLATED A1C Routine 09/02/2023 9:38 AM EDT Uncontrolled type 2 diabetes mellitus with hyperglycemia ([facility]) FECAL GLOBIN BY IMMUNOCHEMISTRY (FIT) Routine 09/10/2022 8:00 PM EDT Colon cancer screening THIN PREP IMAGE PAP + HPV RNA E6/E7 W/RFLX HPV 16, 18/45 Routine 05/24/2021 10:13 AM EST Cervical cancer screening HIV 1/2 AG & AB W/RFLX (4TH GEN) Routine 11/29/2020 10:01 AM EDT Screening for viral disease HEPATITIS C AB W/RFLX HCV RNA, QT, RT PCR Routine 11/29/2020 10:01 AM EDT Screening for viral disease MAMMOGRAM BI-RADS, ABSTRACTED Routine 04/20/2019 1:59 PM EST from Last 3 Months or Most Recently Relevant to Health Maintenance Results * THYROID CASCADING REFLEX PANEL (09/02/2023 9:38 AM EDT) TSH 1.36 0.40 - 4.50 mIU/L [facility] Comment: ?Reference Range ?> or = 20 Years ??0.40-4.50 ? Ranges ?First trimester ?0.26-2.66 ?Second trimester ?? 0.55-2.73 ?Third trimester ?0.43-2.91 Blood Blood / Unknown 09/02/2023 9 :38 AM EDT 09/02/2023 9:38 AM EDT Gwendolyn Roth NP LAB - BLOOD DRAW Edited Resu lt - Final [facility] [address] [place] [id number], [facility] [place] [facility] [address] [place] [phone] * MICROALBUMIN/CREATININE RATIO, URINE, RANDOM (09/02/2023 9:38 AM EDT) CREATININE, RANDOM URINE 79 20 - 275 mg/dL [facility] MICROALBUMIN 0.2 mg/dL [facility] Comment: Reference Range Not established MICROALBUMIN/CREA TININE RATIO, RANDOM URINE 3 <30 mg/g creat [facility] Comment: The ADA defines abnormalities in albumin excretion as follows: Albuminuria Category ?Result (mg/g creatinine) Normal to Mildly increased ?? <30 Moderately increased ? 30-299 Severely increased ? > OR = 300 The ADA recommends that at least two of three specimens collected within a 3-6 month period be abnormal before considering a patient to be within a diagnostic category. Urine Urine specimen / Unknown 09/02/2023 9:38 AM EDT 09/02/2023 9:38 AM EDT us Gwendolyn Roth NP LAB - NO BLOOD DRAW Final Re sult Performing Organization Address [facility] Co de Phone Number [facility] [address] [place] [id number], [facility] [address] [place] [phone] * (ABNORMAL) HEMOGLOBIN GLYCOSYLATED A1C (09/02/2023 9:38 AM EDT) HEMOGLOBIN A1C 9.7(H) <5.7 % of total Hgb [facility] Comment: For someone without known diabetes, a hemoglobin A1c value of 6.5% or greater indicates that they may have diabetes and this should be confirmed with a follow-up test. For someone with known diabetes, a value <7% indicates that their diabetes is well controlled and a value greater than or equal to 7% indicates suboptimal control. A1c targets should be individualized based on duration of diabetes, age, comorbid conditions, and other considerations. Currently, no consensus exists regarding use of hemoglobin A1c for diagnosis of diabetes for children. ?? Blood Blood / Unknown 09/02/2023 9 :38 AM EDT 09/02/2023 9:38 AM EDT us Gwendolyn Roth NP LAB - BLOOD DRAW Edited Resu lt - Final Performing Organization Address [facility] Co de Phone Number [facility] [address] [place] [id number], [facility] [address] [place] [phone] * (ABNORMAL) LIPID PANEL (09/02/2023 9:38 AM EDT) CHOLESTEROL, TOTAL 145 <200 mg/dL [facility] HDL CHOLESTEROL 49(L) > OR = 50 mg/dL [facility] TRIGLYCERIDES 163(H) <150 mg/dL [facility] LDL-CHOLESTEROL 72 99 mg/dL (calc) [facility] Comment: Reference range: <100 Desirable range <100 mg/dL for primary prevention; ?? <70 mg/dL for patients with CHD or diabetic patients with > or = 2 CHD risk factors. LDL-C is now calculated using the Soniya calculation, which is a validated novel method providing better accuracy than the Friedewald equation in the estimation of LDL-C. Gabriele SS et al. CURTIS. 2013;310(19): 5830-0835 (http://education.[employer]/faq/VSR813) CHOL/HDLC RATIO 3.0 <5.0 (calc) [facility] NON-HDL CHOLESTEROL 96 <130 mg/dL (calc) [facility] Comment: For patients with diabetes plus 1 major ASCVD risk factor, treating to a non-HDL-C goal of <100 mg/dL (LDL-C of <70 mg/dL) is considered a therapeutic option. Blood Blood / Unknown 09/02/2023 9 :38 AM EDT 09/02/2023 9:38 AM EDT Gwendolyn Roth NP LAB - BLOOD DRAW Final Resul t [facility] [address] [address], [facility] [address] [place] [address] * (ABNORMAL) COMPREHENSIVE METABOLIC PANEL (09/02/2023 9:38 AM EDT) GLUCOSE 135(H) 65 - 99 mg/dL [facility] Comment: ?Fasting reference interval For someone without known diabetes, a glucose value >125 mg/dL indicates that they may have diabetes and this should be confirmed with a follow-up test. UREA NITROGEN (BUN) 10 7 - 25 mg/dL [facility] CREATININE (blood) 0.67 0.50 - 1.03 mg/dL [facility] EGFR 106 > OR = 60 mL/min/1. 73m2 [facility] BUN/CREATININE RATIO SEE NOTE: [facility] Comment: ?? Not Reported: BUN and Creatinine are within ?? reference range. ? SODIUM 141 135 - 146 mmol/L [facility] POTASSIUM 4.7 3.5 - 5.3 mmol/L [facility] CHLORIDE 106 98 - 110 mmol/L [facility] CARBON DIOXIDE 26 20 - 32 mmol/L [facility] CALCIUM 9.6 8.6 - 10.4 mg/dL [facility] PROTEIN, TOTAL 7.2 6.1 - 8.1 g/dL [facility] ALBUMIN 4.1 3.6 - 5.1 g/dL [facility] GLOBULIN 3.1 1.9 - 3.7 g/dL (calc) [facility] ALBUMIN/GLOBULI N RATIO 1.3 1.0 - 2.5 (calc) [facility] BILIRUBIN, TOTAL 0.6 0.2 - 1.2 mg/dL [facility] ALKALINE PHOSPHATASE 68 37 - 153 U/L [facility] AST 30 10 - 35 U/L [facility] ALT 40(H) 6 - 29 U/L [facility] Blood Blood / Unknown 09/02/2023 9 :38 AM EDT 09/02/2023 9:38 AM EDT us Gwendolyn Roth [employer] INTERN LAB - BLOOD DRAW Edited Resu lt - Final [facility] [address] [address], [facility] [address] [phone] * FECAL GLOBIN BY IMMUNOCHEMISTRY (FIT) (09/10/2022 8:00 PM EDT) FECAL GLOBIN BY IMMUNOCHEMISTRY See Note [facility] Comment: ??FECAL GLOBIN BY IMMUNOCHEMISTRY ?Micro Number: ?[id number] ??Test Status: ? Final ??Specimen Source: ?? Insure (tm) fobt test card ??Specimen Quality: ??Adequate ??Fecal Globin: ?Not Detected Stool Stool specimen / Unknown 09/10/2022 8:00 PM EDT 09/12/2022 3:24 AM EDT Jessica Tinsley BAIT PAINTER-C LAB - NO BLOOD DRAW Final Re sult [facility] [address] [place] [id number], [facility] [address] [phone] * THIN PREP IMAGE PAP + HPV RNA E6/E7 W/RFLX HPV 16, 18/45 (05/24/2021 10:13 AM EST) CLINICAL INFORMATION See Note [facility] Comment:Routine exam LMP See Note [facility] Comment:[id number] PREV. PAP See Note [facility] Comment:NONE GIVEN PREV. BX See Note [facility] Comment:NONE GIVEN SOURCE See Note [facility] Comment:Cervix STATEMENT OF ADEQUACY See Note [facility] Comment: Satisfactory for evaluation. Endocervical/transformation zone component present. INTERPRETATION/RESU LT See Note [facility] Comment:Negative for intraep ithelial lesion or malignancy. COMMENT See Note [facility] Comment: This Pap test has been evaluated with computer assisted technology. BAND MASTER See Note [facility] Comment: [place], CT(ASCP) CT screening location: [address] ??[address] COMMENT [facility] HPV MRNA E6/E7 Not Detected Not Detected [facility] Comment: Methodology: Data Science And Iot Manager-Mediated Amplification This assay detects E6/E7 viral messenger RNA (mRNA) from 14 high-risk HPV types (16,18,31,33,35,39,45,51,52,56,58,59,66,68). The analytical performance characteristics of this assay have been determined by [employer]. The modifications have not been cleared or approved by the FDA. This assay has been validated pursuant to the CLIA regulations and is used for clinical purposes. For additional information, please refer to http://[employer]/faq/AVW141i3 (This link if provided for information/ educational purposes only.) Cervix Cervix uteri structure / Unknown 05/24/2021 10:13 AM EST 05/25/2021 3:22 AM EST Narrative [facility] - 05/28/2021 9:42 AM EST EXPLANATORY NOTE: The Pap is a screening test for cervical cancer. It is not a diagnostic test and is subject to false negative and false positive results. It is most reliable when a satisfactory sample, regularly obtained, is submitted with relevant clinical findings and history, and when the Pap result is evaluated along with historic and current clinical information. us Jessica CHARLES-C LAB - NO BLOOD DRAW Final Re sult [facility] [address] [address], [facility] [address] [address] * HEPATITIS C AB W/RFLX HCV RNA, QT, RT PCR (11/29/2020 10:01 AM EDT) HEPATITIS C ANTIBODY NON-REACT JUVENCIO NON-REACT JUVENCIO [facility] SIGNAL TO CUT-OFF 0.03 <1.00 [facility] Comment: HCV antibody was non-reactive. There is no laboratory evidence of HCV infection. In most cases, no further action is required. However, if recent HCV exposure is suspected, a test for HCV RNA (test code 56889) is suggested. For additional information please refer to http://[employer]/faq/DSL58j8 (This link is being provided for informational/ educational purposes only.) Blood Blood / Unknown 11/29/2020 1 0:01 AM EDT 11/29/2020 10:02 AM EDT Narrative [facility] - 12/01/2020 8:45 PM EDT FASTING:YES us Jessica Laureano BAIT PAINTER-C LAB - BLOOD DRAW Edited Resu lt - Final [facility] [address] [address], [facility] [address],[place] [address] * HIV 1/2 AG & AB W/RFLX (4TH GEN) (11/29/2020 10:01 AM EDT) HIV AG/AB, 4TH GEN NON-REAC TIVE NON-REAC TIVE [facility] Comment: HIV-1 antigen and HIV-1/HIV-2 antibodies were not detected. There is no laboratory evidence of HIV infection. PLEASE NOTE: This information has been disclosed to you from records whose confidentiality may be protected by state law. ??If your state requires such protection, then the state law prohibits you from making any further disclosure of the information without the specific written consent of the person to whom it pertains, or as otherwise permitted by law. A general authorization for the release of medical or other information is NOT sufficient for this purpose. ?? For additional information please refer to http://education.[employer]/faq/RQD867 (This link is being provided for informational/ educational purposes only.) The performance of this assay has not been clinically validated in patients less than 2 years old. Blood Blood / Unknown 11/29/2020 1 0:01 AM EDT 11/29/2020 10:02 AM EDT Narrative [facility] - 12/01/2020 8:45 PM EDT FASTING:YES Jessica Tinsley BAIT PAINTER-C LAB - BLOOD DRAW Edited Resu lt - Final [facility] [address] [address], [facility] [address],[place] [address] * MAMMOGRAM BI-RADS, ABSTRACTED (04/20/2019 1:59 PM EST) BI-RADS ASSESSMENT 1 - Negative: means that there is no significant or noticeable abnormality to report. BI-RADS FOLLOW-UP 1 - Routine Screening Anatomical Region Laterality Modality Other Impressions 04/20/2019 1:59 PM EST As per [facility] no evidence of malignancy. us Provider Aleksandr RIDER MAMMO Final Result from Last 3 Months or Most Recently Relevant to Health Maintenance Insurance [place] [facility] Member Subscriber Plan / Payer ( fective 2019-Present) Name:Garcia Bunn Relation to Subscriber:Self Name:Garcia Bunn Payer ID:[id number] Type:Indemnity Address: [address] [address] [employer] Care Teams Vice President Sales And Marketing Relationship Specialty Start Date End Date Gwendolyn Roth NP [address] [place] [address] PCP - General Internal Medicine 04/18/23
--- OUTSIDE RECORDS SUMMARY | 2024-07-07 09:01 | XMS_ITS | Clinical Summary ---
Author Organization [facility] Address [address] [place] [address] Phone Care Team Providers Care Hair Clipper Power Name Role Phone Gwendolyn Roth Primary Care Provider [phone] Social History Tobacco Use Types Packs/Day Years Used Date Smoking Tobacco: Never Assessed Comments Unknown Sex and Gender Information Value Date Recorded Sex Assigned at Not on file Legal Sex Female 2:53 PM EST Gender Identity Not on file Sexual Orientation Not on file Plan of Treatment Upcoming Encounters Date Type Department Care Team (Late st Contact Info) Description 07/28/2024 2:00 PM EDT Hospital Encounter [facility] Endoscopy [address] [place] [address] Gene Rutherford MD [address] [id number] Health Maintenance Due Date Last Done Comments DTaP,Tdap,and Td Vaccines (1 - Tdap) 1991 Hepatitis B Vaccines (1 of 3 - 19+ 3-dose series) 1991 Cervical Cancer Screening: P ap Smear 1993 Breast Cancer Screening 04/20/2021 04/20/2019 Pneumococcal Vaccine: 50+ Ye ars (1 of 1 - PCV) 2022 Zoster Vaccines (1 of 2) 2022 COVID-19 Vaccine (2023-2 5 season) 2023 Colorectal Cancer Screening: Colonoscopy 02/15/2024 Depression Screening 02/15/2024 HIV Screening 02/15/2024 Hepatitis C Screening 02/15/2024 Social Influencers of Health Screening 02/15/2024 Influenza Vaccine (Season Ended) 2024 HIB Vaccines Aged Out No longer eligi ble based on patient's age to complete this topic HPV Vaccines Aged Out No longer eligi ble based on patient's age to complete this topic Hepatitis A Vaccines Aged Out No long er eligible based on patient's age to complete this topic IPV Vaccines Aged Out No longer eligi ble based on patient's age to complete this topic MMR Vaccines Aged Out No longer eligi ble based on patient's age to complete this topic Meningococcal ACWY Vaccine Aged Out N o longer eligible based on patient's age to complete this topic Meningococcal B Vaccine Aged Out No l onger eligible based on patient's age to complete this topic Pneumococcal Vaccine: Pediat rics (0 to 5 Years) and At-Risk Patients (6 to 64 Years) Aged Out No longer eligi ble based on patient's age to complete this topic RSV Immunization Patients Un tesha 20 months Aged Out No longer eligible b ased on patient's age to complete this topic Varicella Vaccines Aged Out No longer eligible based on patient's age to complete this topic Procedures Procedure Name Priority Date/Time Associated Diagnosis Comments [facility] SCREENING DIGITAL Routine 04/20/2019 1:37 PM EST Encounter for screening mammogram for malignant neoplasm of breast from Last 3 Months or Most Recently Relevant to Health Maintenance Results * [facility] SCREENING DIGITAL (04/20/2019 1:37 PM EST) Anatomical Region Laterality Modality Mammography 04/20/2019 10:2 2 AM EST Narrative 04/20/2019 1:37 PM EST [facility] Diagnostic Imaging Department [address] [place] [address] Patient: ??BERNIE,MAN M ?/Age/Sex: 1973 - Unit#: ??[id number] ? Location/Status: ??SPDIMAM/REG CLI ? Mnemonic/Ordering Site: ??DIGSC/SPMAM Ordering Physician: ??CHARLIE LAIRD Rocío Screening Digital - 04/20/19 - 1045 History: Bilateral breast cancer screening. Technique: Bilateral digital mammography. Conventional CC and MLO projections with tomosynthesis MLO views and computer aided detection. Findings: Comparison: Radiology and Imaging incorporated [facility] 06/10/2018 and 04/18/2017. Breast tissue is mostly fatty replaced (category a density) bilaterally (as calculated by [employer] software). ??There are benign calcifications bilaterally. ?? There is no suspicious group of microcalcification, no suspicious mass, architectural distortion or suspicious asymmetry. Impression: ??No evidence of malignancy. BIRADS category 2, benign findings, 3342F 31243, [id number] Note: Patient information entered ??into a reminder system with a target due date for the next mammogram; PQRI II 8792F Dictating Physician: ??JAMES COTO MD Electronically Signed by: ??JAMES COTO MD Dic Date/Time: ??04/20/19 1336 Sign date/Time: ??04/20/19 1337 Procedure Note James Coto - 03/13/2022 [facility] Diagnostic Imaging Department [address] [place] [address] Patient: BERNIEGARCIA Garner /Age/Sex: 1973 - 46 - F Unit#: [id number] Location/Status: SPDIMAM/REG CLI [facility] Order[facility] Physician: CHARLIE LAIRD Rocío Screening Digital - 04/20/19 - 1045 History: Bilateral breast cancer screening. Technique: Bilateral digital mammography. Conventional CC and MLOprojections with tomosynthesis MLO views and computer aided detection. Findings: Comparison: Radiology and Imaging incorporated [facility] 06/10/2018 and 04/18/2017. Breast tissue is mostly fatty replaced (category a density) bilaterally(as calculated by [employer] software). There are benigncalcifications bilaterally. There is no suspicious group of microcalcification, nosuspicious mass, architectural distortion or suspicious asymmetry. Impression: No evidence of malignancy. BIRADS category 2, benign findings, 3342F 17436, 39139 Note: Patient information entered into a reminder system with a targetdue date for the next mammogram; PQRI II 7025F Dictating Physician: JAMES COTO MD Electronically Signed by: JAMES COTO MD Dic Date/Time: 04/20/19 1336 Sign date/Time: 04/20/19 1337 Result [facility] Charlie CHARLES IMG BI PROCEDURES Final Result from Last 3 Months or Most Recently Relevant to Health Maintenance Insurance [employer] Care Teams Hair Clipper Power Relationship Specialty Start Date End Date Gwendolyn Roth PCP - General 10/29/23
== END 2024-07-07 09:39 | disposition home or self-care (01) ==
LOC: HO.HMCFM 08:39
PROVIDERS: PCP Physician Assistant; Visit Provider Physician Assistant
DX: R77.8 Other specified abnormalities of plasma proteins (principal); D64.9 Anemia, unspecified; M25.50 Pain in unspecified joint; E78.5 Hyperlipidemia, unspecified; I10 Essential (primary) hypertension; R79.89 Other specified abnormal findings of blood chemistry; R76.8 Other specified abnormal immunological findings in serum

== ENCOUNTER → 2024-07-07 08:39 | Outpatient (BNVA) | payer OTHER, SELFPAY | PROVIDERS: PCP Physician Assistant; Visit Provider Physician Assistant | DX: Z13.89 Encounter for screening for other disorder (principal) | CPT/HCPCS: 99212 ==

== ENCOUNTER 2024-07-07 10:03 | Outpatient (REF) | payer OTHER, SELFPAY ==
[2024-07-07 11:23] LABS: MANUAL DIFF FLAG NO
[2024-07-07 11:29] LABS: Basophils Percent Auto 0.4 % (0-2); Eosinophils Absolute Auto 0.1 X10*3/uL (0.0-0.4); Eosinophils Percent Auto 2.6 % (0-4); Hematocrit 37.4 % (42.0-52.0); Hemoglobin 12.7 g/dl (14.0-18.0); Imm Gran Abs Auto 0.01 X10*3/uL (0.00-0.03); Imm Gran Pct Auto 0.2 % (0.0-0.4); Lymphocytes Absolute Auto 1.7 X10*3/uL (1.2-4.9); Lymphocytes Percent Auto 38.3 % (20-40); Mean Corpuscular Hemoglobin 29.2 pg (27.0-33.0); Mean Platelet Volume 12.1 fL (9.4-12.4); Monocytes Absolute Auto 0.3 X10*3/uL (0.1-1.2); Monocytes Percent Auto 7.5 % (2-11); Neutrophils Absolute Auto 2.3 x10*3/uL (2.0-8.3); Platelet Count 115 X10*3/uL (160-400); Red Blood Count 4.35 X10*6/uL (4.60-5.80); Red Cell Distribution Width 11.9 % (11.0-16.0); White Blood Count 4.5 X10*3/uL (4.8-10.8)
--- OUTSIDE RECORDS SUMMARY | 2024-07-07 11:36 | XMS_ITS | Clinical Summary ---
Author Organization [facility] Address [address] [place] [address] Phone Care Team Providers Care Combination Operator Name Role Phone Gwendolyn Roth Primary Care Provider [phone] Social History Tobacco Use Types Packs/Day Years [...] Description 07/28/2024 2:00 PM EDT Hospital Encounter [facility] Endoscopy [address] [place] [address] Gene Rutherford MD [address] [phone] Health Maintenance Due Date Last Done Comments [...] Procedure Name Priority Date/Time Associated Diagnosis Comments [facility] SCREENING DIGITAL Routine 04/20/2019 1:37 PM EST Encounter for screening mammogram for malignant neoplasm of breast from Last 3 Months or Most Recently Relevant to Health Maintenance Results * [facility] SCREENING DIGITAL (04/20/2019 1:37 PM EST) Anatomical Region Laterality Modality Mammography 04/20/2019 10:2 2 AM EST Narrative 04/20/2019 1:37 PM EST [facility] Diagnostic Imaging Department [address] [place] [address] Patient: ??BERNIE,MAN M ?/Age/Sex: 1973 - Unit#: ??[id number] ? Location/Status: ??SPDIMAM/REG CLI ? Mnemonic/Ordering Site: ??DIGSC/SPMAM Ordering Physician: ??CHARLIE LAIRD Rocío Screening Digital - 04/20/19 - 1045 History: Bilateral breast cancer screening. Technique: Bilateral digital mammography. Conventional CC and MLO projections with tomosynthesis MLO views and computer aided detection. Findings: Comparison: Radiology and Imaging incorporated [facility] 06/10/2018 and 04/18/2017. Breast tissue is mostly fatty replaced (category a density) bilaterally (as calculated by [employer] software). ??There are benign calcifications bilaterally. ?? There is no suspicious group of microcalcification, no suspicious mass, architectural distortion or suspicious asymmetry. Impression: ??No evidence of malignancy. BIRADS category 2, benign findings, 3342F 59374, 77673 Note: Patient information entered ??into a reminder system with a target due date for the next mammogram; PQRI II 5139F Dictating Physician: ??JAMES COTO MD Electronically Signed by: ??JAMES COTO MD Dic Date/Time: ??04/20/19 1336 Sign date/Time: ??04/20/19 1337 Procedure Note James Coto - 03/13/2022 [facility] Diagnostic Imaging Department [address] [place] [address] Patient: BERNIEGARCIA Garner /Age/Sex: 1973 - 46 - F Unit#: [id number] Location/Status: SPDIMAM/REG CLI [facility] Order[facility] Physician: CHARLIE LAIRD Rocío Screening Digital - 04/20/19 - 1045 History: Bilateral breast cancer screening. Technique: Bilateral digital mammography. Conventional CC and MLOprojections with tomosynthesis MLO views and computer aided detection. Findings: Comparison: Radiology and Imaging incorporated [facility] 06/10/2018 and 04/18/2017. Breast tissue is mostly fatty replaced (category a density) bilaterally(as calculated by [employer] software). There are benigncalcifications bilaterally. There is no suspicious group of microcalcification, nosuspicious mass, architectural distortion or suspicious asymmetry. Impression: No evidence of malignancy. BIRADS category 2, benign findings, 3342F 43100, [address]40 Note: Patient information entered into a reminder system with a targetdue date for the next mammogram; PQRI II 7025F Dictating Physician: JAMES COTO MD Electronically Signed by: JAMES COTO MD Dic Date/Time: 04/20/19 1336 Sign date/Time: 04/20/19 1337 Result [facility] Charlie CHARLES IMG BI PROCEDURES Final Result from Last 3 Months or Most Recently Relevant to Health Maintenance Insurance [employer] Care Teams Combination Operator Relationship Specialty Start Date End Date Gwendolyn Roth PCP - General 10/29/23
--- OUTSIDE RECORDS SUMMARY | 2024-07-07 11:36 | XMS_ITS | Clinical Summary ---
Author Organization [facility] Address [address] [place] [address] Care Team Providers Care Associate Professor Of Radiology Name Role Phone Gwendolyn Roth NP Primary [...] complication, without long-term current use of insulin ([facility]) Dx. E11.65 - Blood sugar check daily 100 Each 11 3 Active blood sugar diagnostic (FREESTYLE TEST) stripsIndicatio ns:Type 2 diabetes mellitus without complication, without long-term current use of insulin ([facility]) Dx. E11.65 - Blood sugar check daily . FREESTYLE LITE Test strips 100 Each 11 3 Active lancetsIndicati ons:Type 2 diabetes mellitus without complication, without long-term current use of insulin ([facility]) Dx. E11.65 - Blood sugar check daily [...] complication, without long-term current use of insulin ([facility]) Take 1 Tablet by mouth once daily [...] complication, without long-term current use of insulin ([facility]) Take 1 Tablet by mouth 2 (two) times daily before a meal 180 Tablet 1 4 Active metFORMIN (GLUCOPHAGE) 1,000 mg tabletIndicatio ns:Prescription refill,Type 2 diabetes mellitus without complication, without long-term current use of insulin ([facility]) Take 1 Tablet by mouth 2 (two) [...] As per eye examination done 05/22/15 @ [facility].Dr. Adrianna Wilson Pinguecula of both eyes 06/10/2015 Overview (06/10/2015): As per eye examination done 05/22/15 @ [facility].Dr. Adrianna Wilson Presbyopia 06/10/2015 Overview (06/10/2015): As per eye examination done 05/22/15 @ [facility].Dr. Adrianna Wilson Uncontrolled type 2 diabetes mellitus with hyperglycemia ([facility]) 11/30/2014 Overview (11/30/2014): Lab Results Component Value [...] 02/26/2023, 05/07/2012 Imm-Zoster, Recombinant Completed 02/26/2023, 11/21 [id number] Completed 12/24/2023, 12/22, 03/13/2021, Additional history exists Imm-Influenza Completed 12/24/2023, 01/24, 02/21/2021, Additional history exists Cervical Ablation/Cold-Knife Conization Discontinued Cervical Cryotherapy Discontinued Colposcopy Discontinued Endometrial Biopsy Discontinued Excision/Leep Discontinued HPV Genotyping Discontinued Vaginal Pap Discontinued Vulvoscopy Discontinued Procedures Procedure Name Priority Date/Time Associated Diagnosis Comments THYROID CASCADING REFLEX PANEL Routine 09/02/2023 9:38 AM EDT Uncontrolled type 2 diabetes mellitus with hyperglycemia ([facility]) COMPREHENSIVE METABOLIC PANEL Routine 09/02/2023 9:38 AM EDT Uncontrolled type 2 diabetes mellitus with hyperglycemia (HCC-CMS) LIPID PANEL Routine 09/02/2023 9:38 AM EDT Uncontrolled type 2 diabetes mellitus with hyperglycemia ([facility]) MICROALBUMIN/CREATININE RATIO, URINE, RANDOM Routine 09/02/2023 9:38 AM EDT Uncontrolled type 2 diabetes mellitus with hyperglycemia ([facility]) HEMOGLOBIN GLYCOSYLATED A1C Routine 09/02/2023 9:38 AM EDT Uncontrolled type 2 diabetes mellitus with hyperglycemia ([facility]) FECAL GLOBIN BY IMMUNOCHEMISTRY (FIT) Routine 09/10/2022 [...] EDT) TSH 1.36 0.40 - 4.50 mIU/L [employer] Comment: ?Reference Range ?> or = 20 Years ??0.40-4.50 ? Ranges ?First trimester ?0.26-2.66 ?Second trimester ?? 0.55-2.73 ?Third trimester ?0.43-2.91 Blood Blood / Unknown 09/02/2023 9 :38 AM EDT 09/02/2023 9:38 AM EDT Gwendolyn Roth NP LAB - BLOOD DRAW Edited Resu lt - Final [facility] [address] [place] [address], [employer] [place] [employer] [address] [place] [phone] * MICROALBUMIN/CREATININE RATIO, URINE, RANDOM (09/02/2023 9:38 AM EDT) CREATININE, RANDOM URINE 79 20 - 275 mg/dL [employer] MICROALBUMIN 0.2 mg/dL [employer] Comment: Reference Range Not established MICROALBUMIN/CREA TININE RATIO, RANDOM URINE 3 <30 mg/g creat [employer] Comment: The ADA defines abnormalities in albumin [...] DRAW Final Re sult Performing Organization Address [facility] Co de Phone Number [facility] [address] [place] [address], [employer] [address] [place] [phone] * (ABNORMAL) HEMOGLOBIN GLYCOSYLATED A1C (09/02/2023 9:38 AM EDT) HEMOGLOBIN A1C 9.7(H) <5.7 % of total Hgb [employer] Comment: For someone without known diabetes, a [...] Resu lt - Final Performing Organization Address [facility] Co de Phone Number [facility] [address] [place] [address], [employer] [address] [place] [phone] * (ABNORMAL) LIPID PANEL (09/02/2023 9:38 AM EDT) CHOLESTEROL, TOTAL 145 <200 mg/dL [facility] HDL CHOLESTEROL 49(L) > OR = 50 mg/dL [facility] TRIGLYCERIDES 163(H) <150 mg/dL [facility] LDL-CHOLESTEROL 72 99 mg/dL (calc) [employer] Comment: Reference range: <100 Desirable range <100 mg/dL for primary prevention; ?? <70 mg/dL for patients with CHD or diabetic patients with > or = 2 CHD risk factors. LDL-C is now calculated using the Soniya calculation, which is a validated novel method providing better accuracy than the Friedewald equation in the estimation of LDL-C. Gabriele SS et al. CURTIS. 2013;310(19): 0739-1875 (http://education.Telecom Italia/faq/LOS870) CHOL/HDLC RATIO 3.0 <5.0 (calc) [employer] NON-HDL CHOLESTEROL 96 <130 mg/dL (calc) [facility] Comment: For patients with diabetes plus 1 major ASCVD risk factor, treating to a non-HDL-C goal of <100 mg/dL (LDL-C of <70 mg/dL) is considered a therapeutic option. Blood Blood / Unknown 09/02/2023 9 :38 AM EDT 09/02/2023 9:38 AM EDT Gwendolyn Roth NP LAB - BLOOD DRAW Final Resul t [employer] [address] [address], [employer] [facility] [address] [place] [address] * (ABNORMAL) COMPREHENSIVE METABOLIC PANEL (09/02/2023 9:38 AM EDT) GLUCOSE 135(H) 65 - 99 mg/dL [facility] Comment: ?Fasting reference interval For someone without known diabetes, a glucose value >125 mg/dL indicates that they may have diabetes and this should be confirmed with a follow-up test. UREA NITROGEN (BUN) 10 7 - 25 mg/dL [facility] CREATININE (blood) 0.67 0.50 - 1.03 mg/dL [employer] EGFR 106 > OR = 60 mL/min/1. 73m2 [employer] BUN/CREATININE RATIO SEE NOTE: [employer] Comment: ?? Not Reported: BUN and Creatinine are within ?? reference range. ? SODIUM 141 135 - 146 mmol/L [facility] POTASSIUM 4.7 3.5 - 5.3 mmol/L [employer] CHLORIDE 106 98 - 110 mmol/L [employer] CARBON DIOXIDE 26 20 - 32 mmol/L [employer] [place] [employer] CALCIUM 9.6 8.6 - 10.4 mg/dL [employer] PROTEIN, TOTAL 7.2 6.1 - 8.1 g/dL [employer] [place] [employer] ALBUMIN 4.1 3.6 - 5.1 g/dL [employer] GLOBULIN 3.1 1.9 - 3.7 g/dL (calc) [employer] [facility] ALBUMIN/GLOBULI N RATIO 1.3 1.0 - 2.5 (calc) [employer] BILIRUBIN, TOTAL 0.6 0.2 - 1.2 mg/dL [employer] [facility] ALKALINE PHOSPHATASE 68 37 - 153 U/L [employer] [facility] AST 30 10 - 35 U/L [employer] [facility] ALT 40(H) 6 - 29 U/L [facility] Blood Blood / Unknown 09/02/2023 9 :38 AM EDT 09/02/2023 9:38 AM EDT us Gwendolyn Roth DESCRIPTIVE CATALOG LIBRARIAN LAB - BLOOD DRAW Edited Resu lt - Final [employer] [address] [address], [employer] [address] [address] * FECAL GLOBIN BY IMMUNOCHEMISTRY (FIT) (09/10/2022 8:00 PM EDT) FECAL GLOBIN BY IMMUNOCHEMISTRY See Note [facility] Comment: ??FECAL GLOBIN BY IMMUNOCHEMISTRY ?Micro Number: ?[id number] ??Test Status: ? Final ??Specimen Source: ?? Insure (tm) fobt test card ??Specimen Quality: ??Adequate ??Fecal Globin: ?Not Detected Stool Stool specimen / Unknown 09/10/2022 8:00 PM EDT 09/12/2022 3:24 AM EDT Jessica Tinsley NITROCELLULOSE MAKER-C LAB - NO BLOOD DRAW Final Re sult [facility] [address] [place] [address], [employer] [address] [address] * THIN PREP IMAGE PAP + HPV RNA E6/E7 W/RFLX HPV 16, 18/45 (05/24/2021 10:13 AM EST) CLINICAL INFORMATION See Note [employer] Comment:Routine exam LMP See Note [employer] Comment:[id number] PREV. PAP See Note [employer] Comment:NONE GIVEN PREV. BX See Note [employer] Comment:NONE GIVEN SOURCE See Note [employer] Comment:Cervix STATEMENT OF ADEQUACY See Note [employer] Comment: Satisfactory for evaluation. Endocervical/transformation zone component present. INTERPRETATION/RESU LT See Note [employer] Comment:Negative for intraep ithelial lesion or malignancy. COMMENT See Note [employer] Comment: This Pap test has been evaluated with computer assisted technology. CORN SHREDDER See Note [facility] [employer] Comment: [place], CT(ASCP) CT screening location: [address] ??[address] COMMENT [employer] HPV MRNA E6/E7 Not Detected Not Detected [employer] Comment: Methodology: Patient Transition Specialist-Mediated Amplification This assay detects E6/E7 viral messenger RNA (mRNA) from 14 high-risk HPV types (16,18,31,33,35,39,45,51,52,56,58,59,66,68). The analytical performance characteristics of this assay have been determined by [employer]. The modifications have not been cleared or approved by the FDA. This assay has been validated pursuant to the CLIA regulations and is used for clinical purposes. For additional information, please refer to http://TapMyBack.NumberPicture/faq/EEF775k2 (This link if provided for information/ educational purposes only.) Cervix Cervix uteri structure / Unknown 05/24/2021 10:13 AM EST 05/25/2021 3:22 AM EST Narrative [employer] - 05/28/2021 9:42 AM EST EXPLANATORY [...] - NO BLOOD DRAW Final Re sult [facility] [address] [address], [facility] [address] [address] * HEPATITIS C AB W/RFLX HCV RNA, QT, RT PCR (11/29/2020 10:01 AM EDT) HEPATITIS C ANTIBODY NON-REACT JUVENCIO NON-REACT JUVENCIO [facility] SIGNAL TO CUT-OFF 0.03 <1.00 [employer] Comment: HCV antibody was non-reactive. There is no laboratory evidence of HCV infection. In most cases, no further action is required. However, if recent HCV exposure is suspected, a test for HCV RNA (test code 82579) is suggested. For additional information please refer to http://TapMyBack.NumberPicture/faq/IAI30p7 (This link is being provided for informational/ educational purposes only.) Blood Blood / Unknown 11/29/2020 1 0:01 AM EDT 11/29/2020 10:02 AM EDT Narrative [employer] - 12/01/2020 8:45 PM EDT FASTING:YES us Jessica Laureano NITROCELLULOSE MAKER-C LAB - BLOOD DRAW Edited Resu lt - Final [employer] [facility] [address] [address], [employer] [address],[place] [address] * HIV 1/2 AG & AB W/RFLX (4TH GEN) (11/29/2020 10:01 AM EDT) HIV AG/AB, 4TH GEN NON-REAC TIVE NON-REAC TIVE [employer] [facility] Comment: HIV-1 antigen and HIV-1/HIV-2 antibodies were [...] ?? For additional information please refer to http://education.NumberPicture/faq/MZQ627 (This link is being provided for informational/ educational purposes only.) The performance of this assay has not been clinically validated in patients less than 2 years old. Blood Blood / Unknown 11/29/2020 1 0:01 AM EDT 11/29/2020 10:02 AM EDT Narrative [employer] [facility] - 12/01/2020 8:45 PM EDT FASTING:YES Jessica Tinsley NITROCELLULOSE MAKER-C LAB - BLOOD DRAW Edited Resu lt - Final [employer] [facility] [address] [address], [employer] [address],[place] [address] * MAMMOGRAM BI-RADS, ABSTRACTED (04/20/2019 1:59 PM [...] Most Recently Relevant to Health Maintenance Insurance [place] MED[place] [facility] Member Subscriber Plan / Payer ( fective 2019-Present) Name:Garcia Bunn Relation to Subscriber:Self Name:Garcia Bunn Payer ID:[id number] Type:Indemnity Address: [address] [address] [employer]AF[employer] Care Teams Associate Professor Of Radiology Relationship Specialty Start Date End Date Gwendolyn Roth NP [address] [place] [address] PCP - General Internal Medicine 04/18/23
[2024-07-07 12:39] LABS: HBsAGNum1 0.29 S/CO (0.00-0.99); Hepatitis B Surface Antigen Negative (Negative); ~HepC Num1 0.12 S/CO (0.00-0.79); ~Hepatitis C Antibody Nonreactive (Nonreactive)
[2024-07-07 12:54] LABS: Folate 8.4 ng/mL (> or = 4.0); Vitamin B12 570 pg/mL (200-900)
[2024-07-07 13:11] LABS: Alanine Aminotransferase 61 U/L (0-40); Albumin Level 4.7 g/dL (3.5-5.0); Alkaline Phosphatase 65 U/L (39-117); Anion Gap 12 (12-20); Aspartate Amino Transferase 41 U/L (5-37); Bilirubin Direct 0.4 mg/dL (0.0-0.5); Bilirubin Total 1.1 mg/dL (0.0-1.0); Blood Urea Nitrogen 14 mg/dL (9-16); Calcium 9.4 mg/dL (8.4-10.2); Carbon Dioxide 25 mmol/L (22-29); Chloride 109 mmol/L (96-108); Estimated Glomerular Filt Rate > 60; Ferritin 455 ng/mL (20-250); Glucose Random 86 mg/dL (60-115); Iron 157 mcg/dL (45-160); Percent Iron Saturation 47 % (15-50); Sodium 142 mmol/L (135-145); Total Iron Binding Capacity 336 mcg/dL (228-428); Total Protein 7.4 g/dL (6.5-8.0); Unsaturated Iron Binding 179 ug/dL
[2024-07-07 13:21] LABS: Gamma Glutamyl Transpeptidase 127 U/L (11-51)
[2024-07-09 06:33] LABS: PEU-Protein Creat Ratio Rand NOTE (0.025-0.148); PEU-Rand. Prot/Creat Ratio NOTE mg/g creat (25-148); PEU-Random Ur. Gamma Globulin 0 %; PEU-Random Urine A1 Globulin 0 %; PEU-Random Urine A2 Globulin 0 %; PEU-Random Urine Albumin 0 %; PEU-Random Urine Beta Globulin 0 %; PEU-Random Urine Creatinine 81 mg/dL (20-320); PEU-Random Urine Protein <4 mg/dL (5-25)
== END 2024-07-07 10:04 | disposition home or self-care (01) ==
LOC: HO.WFDLDS 10:03
PROVIDERS: Visit Provider Physician Assistant
DX: D64.9 Anemia, unspecified (principal); R94.5 Abnormal results of liver function studies; R77.8 Other specified abnormalities of plasma proteins; R79.89 Other specified abnormal findings of blood chemistry
CPT/HCPCS: 80048; 80076; 82550; 82570; 82607; 82728; 82746; 82977; 83540; 84156; 84166; 85025; 86803; 87340

== ENCOUNTER → 2024-07-21 10:56 | Outpatient (BNVA) | payer OTHER, SELFPAY | PROVIDERS: PCP Physician Assistant; Visit Provider Physician Assistant ==

== ENCOUNTER 2024-07-27 08:59 | Outpatient (AMB) | payer OTHER, SELFPAY ==
--- NOTE | 2024-07-27 09:04 | MHC.OFFVIS ---
Intake Visit Reasons: Bilateral shoulder pains Intake Note: Man is a 54 year old ambidextrious male who presents today as a new patient for evaluation of bilateral shoulder pain. Patient reports that he has had pain both shoulders for many years now. The left is worse than the right . He explains that he feels pain in the shoulders and the elbows. No previous treatment or imaging. He does not take any medicines for his discomfort. He denies any weakness. Allergies No Known Allergies Allergy (Verified 07/07/24 08:46) Medication List - Last Reconciled 07/27/24 by Marty Marks MD allopurinol 300 mg PO DAILY cetirizine (Zyrtec) 10 mg PO DAILY PRN diclofenac sodium 1% (Voltaren Arthritis Pain) 4 grams topical QID fenofibrate 160 mg PO DAILY fluticasone propionate 50 mcg/actuation (Flonase Allergy Relief) 1 spray intranasal BID losartan 25 mg PO DAILY rosuvastatin (Crestor) 10 mg PO DAILY PFSH Surgical History (Updated 06/02/24 @ 15:01 by Janis Alberto CMA) No pertinent past surgical history Social History (Updated 06/02/24 @ 15:06 by Janis Alberto CMA) Housing: House Alcohol intake: current Patient Tobacco Use Status: Never used Tobacco e-Cigarette/Vaping Use: Never Used Second Hand Smoke Exposure: No service: No Current occupational status: employed 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 [employer] Current occupational exposures/hazards: Yes (Works around chemicals) Cognitive needs: No Hearing needs: No Vision needs: Yes (glasses) Physical Exam Const Other: Well-nourished well-developed very friendly male awake alert and oriented x3 in no acute distress Extrem Other: Bilateral upper extremity examination shows good capillary refill, no skin lesions noted, normal sensation light touch Bilateral shoulder examination shows 5/5 strength with supraspinatus testing, positive impingement signs, tenderness over his acromioclavicular joint, no instability Results Reviewed Results Reviewed: X-rays of the patient's bilateral shoulder show moderate to severe acromioclavicular joint narrowing, type 2 acromion, no acute bony abnormalities Assessment & Plan Assessment & Plan (1) Impingement of both shoulders: Code(s): M25.811 - Other specified joint disorders, right shoulder; M25.812 - Other specified joint disorders, left shoulder Category: Medical Plan Mr. Bunn presents with bilateral shoulder pains due to impingement syndrome. I had a lengthy discussion with the patient regarding the treatment options. I did give him a prescription to go to formal physical therapy. The do's and don'ts of lifting were discussed at length with the patient. He will contact me prior to his follow-up appointment in 2 months should any questions or concerns arise. Feel free to call me at any time should questions regarding his orthopedic management arise. I spent 20 minutes in reviewing the patient's records and imaging studies, seeing the patient and documenting in the medical record. Orders: Orders PT Evaluation and Treatment Today M25.811 - Other specified joint disorders, right shoulder, M25.812 - Other specified joint disorders, left shoulder Coding Level of Care Code New Pt Level 3 (62286) Complex EM visit Add On G2211 Diagnoses Impingement of both shoulders M25.811; M25.812
--- OUTSIDE RECORDS SUMMARY | 2024-07-27 09:39 | XMS_ITS | Clinical Summary ---
Author Organization [facility] Address [address] [place] [address] Phone Care Team Providers Care Lumber Handler Name Role Phone Gwendolyn Roth Primary Care Provider [phone] Medications polyethylene glycol (Golytely) 236-22.74-6.74 -5.86 gram solution Take 4L by mouth once for one dose. May substitue any PEG. Starting at 6PM the night before your procedure drink 1 8oz glasses at your own pace until you complete half of the gallon. Finish 2nd half of the gallon 5 hours before your procedure. 4000 mL 5 Active bisacodyL (DULCOLAX) 5 mg EC tablet Take 2 tablets by mouth right before beginning bowel prep. See instructions provided by the office 2 tablet 5 Active Encounters Date Type Department Care Team Description 07/20/2024 Telephone Gastroenterology - [address] [address] Gene Rutherford MD Special Procedure CX from Last 3 Months Social History Tobacco Use Types Packs/Day Years Used Date Smoking Tobacco: Never Assessed Comments Unknown Sex and Gender Information Value Date Recorded Sex Assigned at Not on file Legal Sex Female 2:53 PM EST Gender Identity Not on file Sexual Orientation Not on file Plan of Treatment Health Maintenance Due Date Last Done Comments DTaP,Tdap,and Td Vaccines (1 - Tdap) 1991 Hepatitis B Vaccines (1 of 3 - 19+ 3-dose series) 1991 Cervical Cancer Screening: P ap Smear 1993 Breast Cancer Screening 04/20/2021 04/20/2019 Pneumococcal Vaccine: 50+ Ye ars (1 of 1 - PCV) 2022 Zoster Vaccines (1 of 2) 2022 COVID-19 Vaccine (1 - 2023-2 5 season) 2023 Colorectal Cancer Screening: Colonoscopy [...] Procedure Name Priority Date/Time Associated Diagnosis Comments [facility] SCREENING DIGITAL Routine 04/20/2019 1:37 PM EST Encounter for screening mammogram for malignant neoplasm of breast from Last 3 Months or Most Recently Relevant to Health Maintenance Results * ROCÍO SCREENING DIGITAL (04/20/2019 1:37 PM EST) Anatomical Region Laterality Modality Mammography 04/20/2019 10:2 2 AM EST Narrative 04/20/2019 1:37 PM EST [facility] Diagnostic Imaging Department [address] [place] [address] [id number] Patient: ??GARCIA GIBBS ?/Age/Sex: 1973 - 46 - F Unit#: ??[id number] ? Location/Status: ??SPDIMAM/REG CLI ? Mnemonic/Ordering Site: ??DIGSC/SPMAM Ordering Physician: ??CHARLIE LAIRD LOSS PREVENTION LEADER Rocío Screening Digital - 04/20/19 - 1045 History: Bilateral breast cancer screening. Technique: Bilateral digital mammography. Conventional CC and MLO projections with tomosynthesis MLO views and computer aided detection. Findings: Comparison: Radiology and Imaging incorporated [facility] 06/10/2018 and 04/18/2017. Breast tissue is mostly fatty replaced (category a density) bilaterally (as calculated by Slicepara software). ??There are benign calcifications bilaterally. ?? There is no suspicious group of microcalcification, no suspicious mass, architectural distortion or suspicious asymmetry. Impression: ??No evidence of malignancy. BIRADS category 2, benign findings, 3342F 51906, 91889 Note: Patient information entered ??into a reminder system with a target due date for the next mammogram; PQRI II 7576C Dictating Physician: ??JAMES COTO MD Electronically Signed by: ??JAMES COTO MD Dic Date/Time: ??04/20/19 1336 Sign date/Time: ??04/20/19 1337 Procedure Note James Coto - 03/13/2022 [facility] Diagnostic Imaging Department [address] [place] [address] [id number] Patient: GARCIA GIBBS /Age/Sex: 1973 - 46 - F Unit#: [id number] Location/Status: SPDIMAM/REG CLI Mnemonic/Ordering Site: [facility] Ordering Physician: CHARLIE LAIRD Rocío Screening Digital - 04/20/19 - 1045 History: Bilateral breast cancer screening. Technique: Bilateral digital mammography. Conventional CC and MLOprojections with tomosynthesis MLO views and computer aided detection. Findings: Comparison: Radiology and Imaging incorporated [facility] 06/10/2018 and 04/18/2017. Breast tissue is mostly fatty replaced (category a density) bilaterally(as calculated by Georgina Goodman Volpara software). There are benigncalcifications bilaterally. There is no suspicious group of microcalcification, nosuspicious mass, architectural distortion or suspicious asymmetry. Impression: No evidence of malignancy. BIRADS category 2, benign findings, 3342F 92670, 17642 Note: Patient information entered into a reminder system with a targetdue date for the next mammogram; PQRI II 7025F Dictating Physician: JAMES COTO MD Electronically Signed by: JAMES COTO MD Dic Date/Time: 04/20/19 1335 Sign date/Time: 04/20/19 1337 Charlie CHARLES IMG BI PROCEDURES Final Result from Last 3 Months or Most Recently Relevant to Health Maintenance Insurance [address] [place] [phone] [employer] Care Teams Lumber Handler Relationship Specialty Start Date End Date Gwendolyn Roth PCP - General 10/29/23
--- OUTSIDE RECORDS SUMMARY | 2024-07-27 09:39 | XMS_ITS | Clinical Summary ---
Author Organization [facility] Address [address] [place] [address] Care Team Providers Care Consumer Insights Intern Name Role Phone Unavailable Primary Care Provider Unavailabl e Source Comments PLEASE NOTE, if this patient is a minor, it may be UNLAWFUL to discuss sensitive information that is contained in these records (such as FAMILY PLANNING, MENTAL HEALTH or SUBSTANCE ABUSE) with the minor patient's parent or other person without the patient's specific authorization.[facility] Allergies No known active allergies Medications acetaminophen (TYLENOL) 325 mg tabletIndications:L eft elbow pain Take 1 Tablet by mouth every 6 (six) hours as needed for pain 30 Tablet 1 10/02/19 24 Active losartan (COZAAR) 25 mg tabletIndications:P rimary hypertension Take 1 Tablet by mouth every morning for blood pressure 90 Tablet 1 01/08/20 24 Active rosuvastatin (CRESTOR) 5 mg tabletIndications:M ixed hyperlipidemia,Hype rtriglyceridemia Take 1 Tablet by mouth nightly at bedtime New Rx. Patient to discontinue Gemfibrozil 90 Tablet 01/08/20 24 Active allopurinoL (ZYLOPRIM) 300 mg tabletIndications:H yperuricemia Take 1 Tablet by mouth once daily To decrease uric acid 90 Tablet 2 01/08/20 24 Active fenofibrate nanocrystallized (TRICOR) 48 mg tabIndications:Hype rtriglyceridemia,Mi xed hyperlipidemia Take 1 Tablet by mouth daily . New Rx 90 Tablet 07/07/19 25 Active fenofibric acid, choline, (TRILIPIX) [address] capsuleIndications: Mixed hyperlipidemia,Hype rtriglyceridemia Take 1 Capsule by mouth once daily New Rx. Patient to discontinue Gemfibrozil 90 Capsule 01/08/20 24 025 Discontin ued(Cance lled) Active Problems Problem Noted Date Diagnosed Date [...] intracranial flow-voids at the level of the [place] are preserved. The dural venous [...] to Pt at [facility] With emilio Mckeon at [facility] EMG negative 02/22/15 - xray left shoulder: negative. Hypertriglyceridemia 01/12/2013 Vitamin D deficiency disease 01/12/2013 HTN (hypertension) 01/12/2013 Immunizations Immunization Administration Dates Next Due Flu, Preservative Free [...] 03/25/2024 10:46 AM EST Plan of Treatment Health Maintenance Due Date Last Done Comments Anxiety Screening 1969 CT Colonography 2014 Colonoscopy 2014 Colorectal Cancer Screening 2014 FIT/gFOBT 2014 Fecal DNA 2014 Flexible Sigmoidoscopy 2014 Imm-Zoster, Recombinant (1 of 2) 2019 Depression Annual Screen 2024 04/20/2015 Annual Preventive Care Visit 06/11/2024, 08/26/2018, 04/23/2017, Additional history exists Tobacco Screening 10/01/2024 12/25/2022, 04/23/2017 Dental BW 12/16/2024 12/15/2023, 05/22, 10/23/2022, [...] Completed 01/20/2013 Hepatitis C Screening Completed 01/20/2013 [id number] Completed 12/24/2023, 12/22, 03/13/2021, Additional history exists Imm-Influenza Completed 12/24/2023, 06/2022, 02/20/2022, Additional history exists Alcohol and Drug Screen Completed 03/25/19, 06/12/2023, 06/19/2022, Additional history exists Goals Goal Patient Goal Type Associated Problems Recent Progress Patient-Stated? Author Blood Pressure < 140/90 Blood Pressure HTN (hypertension) 124/80( 025 10:46 AM EST) No Vandana Chávez, PharmD Procedures Procedure Name Priority Date/Time Associated Diagnosis Comments COMPREHENSIVE METABOLIC PANEL Routine 12/25/2023 9:53 AM [...] Recently Relevant to Health Maintenance Results * (ABNORMAL) LIPID PANEL (12/25/2023 9:53 AM EDT) Pathologist [facility] CHOLESTEROL, TOTAL 311(H) <200 mg/dL DTT HDL CHOLESTEROL 40 > OR = 40 mg/dL DTT TRIGLYCERIDES 2,415(H) <150 mg/dL DTT Comment: Verified by repeat analysis. If a [...] Clin. Lipidol. 2015;9:129-169. LDL-CHOLESTEROL See Note QUES [employer] Comment: LDL cholesterol not calculated. Triglyceride levels [...] equation in the estimation of LDL-C. Gabriele MONTOYA et al. CURTIS. 2013;310(19): 4175-8465 (http://education.Aprius/faq/ISR285) CHOL/HDLC RATIO 7.8(H) <5.0 (calc) DTT NON-HDL CHOLESTEROL 271(H) <130 mg/dL (calc) DTT Comment: Non-HDL level > or = 220 [...] AM EDT 12/25/2023 9:54 AM EDT Narrative [facility] - 12/26/2023 1:34 PM EDT FASTING:YES us Maribeth Campa PA-C LAB - BLOOD DRAW Final Resu lt [facility] [address] [address], [employer] [address] [address] * COMPREHENSIVE METABOLIC PANEL (12/25/2023 9:53 AM EDT) Pathologist [facility] GLUCOSE 97 65 - 99 mg/dL [employer] [facility] Comment: ?Fasting reference interval UREA NITROGEN (BUN) 15 7 - 25 mg/dL [facility] CREATININE (blood) 1.14 0.70 - 1.30 mg/dL [facility] EGFR 76 > OR = 60 mL/min/1. 73m2 [employer] [facility] BUN/CREATININE RATIO SEE NOTE: [employer] [facility] Comment: ?? Not Reported: BUN and Creatinine are within ?? reference range. ? SODIUM 135 135 - 146 mmol/L [facility] POTASSIUM 3.7 3.5 - 5.3 mmol/L [employer] [facility] CHLORIDE 101 98 - 110 mmol/L [employer] [facility] CARBON DIOXIDE 23 20 - 32 mmol/L [employer] [facility] CALCIUM 9.7 8.6 - 10.3 mg/dL [facility] [facility] PROTEIN, TOTAL 7.3 6.1 - 8.1 g/dL [facility] ALBUMIN 4.9 3.6 - 5.1 g/dL DTT GLOBULIN 2.4 1.9 - 3.7 g/dL (calc) [facility] [facility] ALBUMIN/GLOBULI N RATIO 2.0 1.0 - 2.5 (calc) DTT BILIRUBIN, TOTAL 0.7 0.2 - 1.2 mg/dL [facility] ALKALINE PHOSPHATASE 46 35 - 144 U/L [facility] AST 32 10 - 35 U/L [facility] Comment: Results slightly increased due to lipemia. ALT 35 9 - 46 U/L [facility] Blood Blood / Unknown 12/25/2023 9 :53 AM EDT 12/25/2023 9:54 AM EDT Narrative [facility] - 12/26/2023 1:34 PM EDT FASTING:YES Maribeth Campa PA-C LAB - BLOOD DRAW Final Resu lt Performing Organization Address City/[facility]/ZIP Co de Phone Number [facility] [address] [address], [facility] [address] [address] * HIV-1 & HIV-2 ANTIBODIES (01/20/2013 3:16 PM EDT) Pathologist [facility] HIV 1 AND 2 ANTIBODY SCREEN NEGATIVE NEGATIVE [facility] Comment:Performer: [facility] (ML) Blood specimen (specimen) Blood / Unknown 01/20/2013 3:16 PM EDT 01/20/2013 3:18 PM EDT Narrative [facility] - 01/21/2013 8:07 AM EDT [employer] [address] [place] [address] [place] [id number] ORD# [id number] Mj Pond MD LAB - BLOOD DRAW Edited [address] [address], * (ABNORMAL) ACUTE HEPATITIS PANEL (01/20/2013 3:16 PM EDT) HEPATITIS B SURFACE ANTIGEN NEGATIVE NEGATIVE [facility] Comment:Performer: [facility] (ML) HEPATITIS C VIRUS ANTIBODY NEGATIVE NEGATIVE [facility] Comment:Performer: [facility] (ML) HEPATITIS B CORE ANTIBODY IGM NEGATIVE NEGATIVE [facility] Comment:Performer: SAYRA MONIQUEO LIEN (ML) HEPATITIS A ANTIBODY TOTAL POSITIVE(A) NEGATIVE [facility] Comment:Performer: SAYRA EMMANUEL (ML) Blood specimen (specimen) Blood / Unknown 01/20/2013 3:16 PM EDT 01/20/2013 3:18 PM EDT Narrative [facility] - 01/20/2013 7:00 PM EDT [facility] [place] [address] PT ID [id number] ORD# [id number] Mj Pond MD LAB - BLOOD DRAW Edited [facility] [address] [place] [address], from Last 3 Months or Most Recently Relevant to Health Maintenance Insurance [employer] NET DENTAL [facility] [employer] [facility] Member Subscriber Plan / Payer (Ef fective 2024-Present) Name:Garcia Bunn Relation to Subscriber:Self Name:Garcia Bunn Payer ID:[id number] Type:Indemnity Address: [address] [id number] [place] [address] [employer]ALTH SAF[employer] NET
== END 2024-07-27 09:25 | disposition home or self-care (01) ==
LOC: HO.HOS 09:00
PROVIDERS: PCP Physician Assistant; Visit Provider Orthopaedic Surgery
DX: M25.811 Other specified joint disorders, right shoulder (principal); M25.812 Other specified joint disorders, left shoulder
CPT/HCPCS: 99203; G2211

== ENCOUNTER → 2024-07-27 08:59 | Outpatient (BNVA) | payer OTHER, SELFPAY | PROVIDERS: PCP Physician Assistant; Visit Provider Orthopaedic Surgery | DX: M25.811 Other specified joint disorders, right shoulder (principal); M25.812 Other specified joint disorders, left shoulder | CPT/HCPCS: 99202 ==

== ENCOUNTER 2024-08-05 09:04 | Outpatient (REF) | payer OTHER, SELFPAY ==
--- OUTSIDE RECORDS SUMMARY | 2024-08-05 09:34 | XMS_ITS | Clinical Summary ---
Author Organization [facility] Address [address] [place] [address] Care Team Providers Care Vehicle Inspector Name Role Phone Unavailable Primary Care Provider [...] active allergies Medications acetaminophen (TYLENOL) 325 mg tabletIndications:Le ft elbow pain Take 1 Tablet by mouth every 6 (six) hours as needed for pain 30 Tablet 1 10/02/19 24 Active losartan (COZAAR) 25 mg tabletIndications:Pr imary hypertension Take 1 Tablet by mouth every morning for blood pressure 90 Tablet 1 01/08/20 24 Active rosuvastatin (CRESTOR) 5 mg tabletIndications:Mi xed hyperlipidemia,Hyper triglyceridemia Take 1 Tablet by mouth nightly at bedtime New Rx. Patient to discontinue Gemfibrozil 90 Tablet 01/08/20 24 Active allopurinoL (ZYLOPRIM) 300 mg tabletIndications:Hy peruricemia Take 1 Tablet by mouth once daily To decrease uric acid 90 Tablet 2 01/08/20 24 Active fenofibrate nanocrystallized (TRICOR) 48 mg tabIndications:Hyper triglyceridemia,Mixe d hyperlipidemia Take 1 Tablet by mouth daily . New Rx 90 Tablet 07/07/19 25 Active Active Problems Problem Noted Date Diagnosed [...] intracranial flow-voids at the level of the [place] are preserved. The dural [...] 2014 Imm-Zoster, Recombinant (1 of 2) 2019 Tobacco Screening 12/26/2023 12/25/2022, 04/23/2017 Depression Annual Screen 2024 04/20/2015 Annual Preventive Care Visit 06/11/2024, 08/26/2018, 04/23/2017, Additional history exists Dental Prophy 12/16/2024 12/15/2023, 05/22, 10/23/2022 Lipid Screening 12/24/2024 12/25/2023, 09/21, 06/18/2023, Additional history exists Hypertension Screening (#1) 03/25/2025 Diabetes Screening 12/24/2026 12/25/2023, 0 10/04/2023, 06/18/2023, Additional history exists Imm-DTaP/Tdap/Td (3 - Td or Tdap) 06/11/2033 06/12/2023, 06/12/2011, 02/05/2011 Imm-Hepatitis B Completed 07/22/2012, 07/23, 07/16/2011 HIV Screening Completed 01/20/2013 Hepatitis C Screening Completed 01/20/2013 [id number] Completed 12/24/2023, 12/22, 03/13/2021, Additional history exists [...] 9:53 AM EDT Mixed hyperlipidemia Hypertriglyceridem ia PROPHYLAXIS - ADULT Routine 12/15/2023 9 :40 AM EDT [employer] ANTIBODY HIV-1&HIV-2 SINGLE RESULT Routine 01/20/2013 3:16 PM EDT Needle stick injury ACUTE HEPATITIS PANEL Routine 01/20/2013 3:16 PM EDT Needle stick injury from Last 3 Months or Most Recently Relevant to Health Maintenance Results * (ABNORMAL) LIPID PANEL (12/25/2023 9:53 AM EDT) CHOLESTEROL, TOTAL 311(H) <200 mg/dL [employer] [facility] HDL CHOLESTEROL 40 > OR = 40 mg/dL [facility] TRIGLYCERIDES 2,415(H) <150 mg/dL [facility] Comment: Verified by repeat analysis. If a non-fasting specimen was collected, consider repeat triglyceride testing on a fasting specimen if clinically indicated. Bree graf al. J. of Clin. Lipidol. 2015;9:129-169. There is increased risk of pancreatitis when the triglyceride concentration is very high (> or = 500 mg/dL, especially if > or = 1000 mg/dL). Bree graf al. J. of Clin. Lipidol. 2015;9:129-169. LDL-CHOLESTEROL See Note QUES [employer] Comment: LDL cholesterol not calculated. Triglyceride levels [...] LDL-C. Gabriele SS et al. CURTIS. 2013;310(19): 2412-3242 (http://education.CityHook/faq/GMK017) CHOL/HDLC RATIO 7.8(H) <5.0 (calc) [employer] NON-HDL CHOLESTEROL 271(H) <130 mg/dL (calc) [employer] Comment: Non-HDL level > or = 220 [...] AM EDT 12/25/2023 9:54 AM EDT Narrative [facility] - 12/26/2023 1:34 PM EDT FASTING:YES us Maribeth Campa PA-C LAB - BLOOD DRAW Final Resu lt [facility] [address] [address], [employer] [address] [place] [phone] * COMPREHENSIVE METABOLIC PANEL (12/25/2023 9:53 AM EDT) [facility] GLUCOSE 97 65 - 99 mg/dL [employer] Comment: ?Fasting reference interval UREA NITROGEN (BUN) 15 7 - 25 mg/dL [employer] CREATININE (blood) 1.14 0.70 - 1.30 mg/dL [facility] EGFR 76 > OR = 60 mL/min/1. 73m2 [facility] BUN/CREATININE RATIO SEE NOTE: [facility] Comment: ?? Not Reported: BUN and Creatinine are within ?? reference range. ? SODIUM 135 135 - 146 mmol/L [facility] POTASSIUM 3.7 3.5 - 5.3 mmol/L [facility] CHLORIDE 101 98 - 110 mmol/L [facility] CARBON DIOXIDE 23 20 - 32 mmol/L [facility] CALCIUM 9.7 8.6 - 10.3 mg/dL [facility] PROTEIN, TOTAL 7.3 6.1 - 8.1 g/dL [facility] ALBUMIN 4.9 3.6 - 5.1 g/dL [facility] GLOBULIN 2.4 1.9 - 3.7 g/dL (calc) [facility] ALBUMIN/GLOBULI N RATIO 2.0 1.0 - 2.5 (calc) [facility] BILIRUBIN, TOTAL 0.7 0.2 - 1.2 mg/dL [facility] ALKALINE PHOSPHATASE 46 35 - 144 U/L [facility] AST 32 10 - 35 U/L [facility] Comment: Results slightly increased due to lipemia. ALT 35 9 - 46 U/L [facility] Blood Blood / Unknown 12/25/2023 9 :53 AM EDT 12/25/2023 9:54 AM EDT Narrative [employer] [facility] - 12/26/2023 1:34 PM EDT FASTING:YES Maribeth Campa PA-C LAB - BLOOD DRAW Final Resu lt [employer] [facility] [address] [address], [employer] [facility] [address] [place] [address] * HIV-1 & HIV-2 ANTIBODIES (01/20/2013 3:16 PM EDT) HIV 1 AND 2 ANTIBODY SCREEN NEGATIVE NEGATIVE [facility] Comment:Performer: [facility] (ML) Blood specimen (specimen) Blood / Unknown 01/20/2013 3:16 PM EDT 01/20/2013 3:18 PM EDT [facility] - 01/21/2013 8:07 AM EDT [employer] [address] [place] [address] [place] [id number] ORD# [id number] Mj Pond MD LAB - BLOOD DRAW Edited [facility] [address] [place] [address], [place] [phone] * (ABNORMAL) ACUTE HEPATITIS PANEL (01/20/2013 3:16 PM EDT) HEPATITIS B SURFACE ANTIGEN NEGATIVE NEGATIVE [facility] Comment:Performer: [facility] (ML) HEPATITIS C VIRUS ANTIBODY NEGATIVE NEGATIVE [facility] Comment:Performer: [facility] (ML) HEPATITIS B CORE ANTIBODY IGM NEGATIVE NEGATIVE [facility] Comment:Performer: [facility] (ML) HEPATITIS A ANTIBODY TOTAL POSITIVE(A) NEGATIVE [facility] Comment:Performer: [facility] (ML) Blood specimen (specimen) Blood / Unknown 01/20/2013 3:16 PM EDT 01/20/2013 3:18 PM EDT [facility] - 01/20/2013 7:00 PM EDT [employer] [address] [place] [address] [place] [id number] ORD# [id number] Mj Pond MD LAB - BLOOD DRAW Edited [address] [address], [place] [phone] from Last 3 Months or Most Recently Relevant to Health Maintenance Insurance HE[employer] SAF[employer] NET DENTAL [employer] [facility] Member Subscriber Plan / Payer (Ef fective 2024-Present) Name:Garcia Bunn Relation to Subscriber:Self Name:Garcia Bunn Payer ID:[id number] Type:Indemnity Address: [facility] [address] [place] [address] [facility] NET
--- OUTSIDE RECORDS SUMMARY | 2024-08-05 09:34 | XMS_ITS | Clinical Summary ---
Author Organization [facility] Address [address] [place] [address] Phone Care Team Providers Care Meat Products Demonstrator Name Role Phone Gwendolyn Roth Primary Care Provider [phone] Medications polyethylene glycol (Golytely) 236-22.74-6.74 -5.86 gram [...] Team Description 07/20/2024 Telephone Gastroenterology - [address] [address] Gene Rutherford MD Special Procedure [...] Procedure Name Priority Date/Time Associated Diagnosis Comments [facility] SCREENING DIGITAL Routine 04/20/2019 1:37 PM EST Encounter for screening mammogram for malignant neoplasm of breast from Last 3 Months or Most Recently Relevant to Health Maintenance Results * ROCÍO SCREENING DIGITAL (04/20/2019 1:37 PM EST) Anatomical Region Laterality Modality Mammography 04/20/2019 10:2 2 AM EST Narrative 04/20/2019 1:[address] [facility] Diagnostic Imaging Department [address] [place] [address] [id number] Patient: ??GARCIA GIBBS ?/Age/Sex: 1973 - 46 - F Unit#: ??[id number] ? Location/Status: ??SPDIMAM/REG CLI ? Mnemonic/Ordering Site: ??DIGSC/SPMAM Ordering Physician: ??CHARLIE LAIRD SUPPORT SPECIALIST Rocío Screening Digital - 04/20/19 - 1045 History: Bilateral breast cancer screening. Technique: Bilateral digital mammography. Conventional CC and MLO projections with tomosynthesis MLO views and computer aided detection. Findings: Comparison: Radiology and Imaging incorporated [facility] 06/10/2018 and 04/18/2017. Breast tissue is mostly fatty replaced (category a density) bilaterally (as calculated by [employer] software). ??There are benign calcifications bilaterally. ?? There is no suspicious group of microcalcification, no suspicious mass, architectural distortion or suspicious asymmetry. Impression: ??No evidence of malignancy. BIRADS category 2, benign findings, 3342F 18228, [id number] Note: Patient information entered ??into a reminder system with a target due date for the next mammogram; PQRI II 4009X Dictating Physician: ??JAMES COTO MD Electronically Signed by: ??JAMES COTO MD Dic Date/Time: ??04/20/19 1336 Sign date/Time: ??04/20/19 1337 Procedure Note James Coto - 03/13/2022 [facility] Diagnostic Imaging Department [address] [place] [address] [phone] Patient: GARCIA GIBBS /Age/Sex: 1973 - 46 - F Unit#: [id number] Location/Status: SPDIMAM/REG CLI Mnemonic/Ordering Site[facility] Ordering Physician: CHARLIE LAIRD Rocío Screening Digital - 04/20/19 - 1045 History: Bilateral breast cancer screening. Technique: Bilateral digital mammography. Conventional CC and MLOprojections with tomosynthesis MLO views and computer aided detection. Findings: Comparison: Radiology and Imaging incorporated [facility] 06/10/2018 and 04/18/2017. Breast tissue is mostly fatty replaced (category a density) bilaterally(as calculated by [employer] software). There are benigncalcifications bilaterally. There is no suspicious group of microcalcification, nosuspicious mass, architectural distortion or suspicious asymmetry. Impression: No evidence of malignancy. BIRADS category 2, benign findings, 3342F 87244, 17980 Note: Patient information entered into a reminder system with a targetdue date for the next mammogram; PQRI II 7025F Dictating Physician: JAMES COTO MD Electronically Signed by: JAMES COTO MD Dic Date/Time: 04/20/19 1330 Sign date/Time: 04/20/19 1337 Charlie CHARLES IMG BI PROCEDURES Final Result from Last 3 Months or Most Recently Relevant to Health Maintenance Insurance [address] [place] [id number] [employer] Care Teams Meat Products Demonstrator Relationship Specialty Start Date End Date Gwendolyn Roth PCP - General 10/29/23
== END 2024-08-05 09:05 | disposition home or self-care (01) ==
LOC: HO.US 09:04
PROVIDERS: PCP Physician Assistant; Visit Provider Physician Assistant
DX: Z13.89 Encounter for screening for other disorder (principal)

== ENCOUNTER → 2024-08-25 13:01 | Outpatient (BNV) | payer OTHER, SELFPAY | PROVIDERS: PCP Physician Assistant; Referring Provider Physician Assistant; Visit Provider Internal Medicine | DX: D61.818 Other pancytopenia (principal) | CPT/HCPCS: 99204 ==

== ENCOUNTER 2024-09-04 09:22 | Outpatient (AMB) | payer OTHER, SELFPAY ==
--- OUTSIDE RECORDS SUMMARY | 2024-09-04 09:23 | XMS_ITS | Clinical Summary ---
Author Organization [facility] Address [address] [place] [address] Phone Care Team Providers Care Format Proofreader Name Role Phone Gwendolyn Roth Primary Care Provider [phone] Medications polyethylene glycol (Golytely) 236-22.74-6.74 -5.86 gram [...] Team Description 07/20/2024 Telephone Gastroenterology - [address] [address] Gene Rutherford MD Special Procedure [...] Health Maintenance Due Date Last Done Comments Diabetes: Annual Foot Exam 1982 Diabetes: Annual Retina Eye Exam 1982 Cervical Cancer Screening: Pap Smear 1993 Breast Cancer Screening 04/20/2021 04/20/2019 COVID-19 Vaccine () 11/23/2023 08/09/2020, 07/08/2020 Colorectal Cancer Screening: Stool Based Tests (FOBT/FIT) 02/15/2024 09/10/2022 HIV Screening 02/15/2024 Social Influencers of Health Screening 02/15/2024 Depression Screening 09/01/2024 09/02/2023 Diabetes: Annual Urine Albumin-Creatinine Ratio (uACR) 09/01/2024 09/02/2023, 05/09/2022, 11/29/2020, Additional history exists Diabetes: Annual GFR (Glomerular Filtration Rate) 09/01/2024 09/02/2023 Diabetes: Blood Sugar Control Test (HGBA1C) 09/01/2024 09/02/2023 Hypertension/CHF/CAD Annual BMP Blood Test 09/01/2024 09/02/2023 Influenza Vaccine (Season Ended) 2024 02/21/2021, 12/24/2019, 03/10/2019, Additional history exists Cholesterol Screening (Lipid Panel) 09/01/2028 09/02/2023, 09/02/2023, 05/09/2022, Additional history exists DTaP,Tdap,and Td Vaccines (4 - Td or Tdap) 06/28/2031 06/27/2021, 06/12/2011, 02/05/2011 MMR Vaccines Aged Out 06/22/2011, 02/05/2011 No lo nger eligible based on patient's age to complete this topic Hepatitis B Vaccines Completed 01/16/2012, 08/15/2011, 07/16/2011 Hepatitis C Screening Completed 11/29/2020 Pneumococcal Vaccine: 50+ Years Completed 02/26/2023, 05/07/2012 Pneumococcal Vaccine: Pediatrics (0 to 5 Years) and At-Risk Patients (6 to 64 Years) Aged Out 02/26/2023, 05/07/2012 No longer eligibl e based on patient's age to complete this topic Zoster Vaccines Completed 02/26/2023, 11/21/2022 HIB Vaccines Aged Out No longer eligi [...] to complete this topic RSV Immunization Patients Under 20 months Aged Out No longer eligible based on patient's age to complete this topic Varicella Vaccines Aged Out No longer eligible based on patient's age to complete this topic Procedures Procedure Name Priority Date/Time Associated Diagnosis Comments [facility] SCREENING DIGITAL Routine 04/20/2019 1:37 PM EST Encounter for screening mammogram for malignant neoplasm of breast from Last 3 Months or Most Recently Relevant to Health Maintenance Results * ROCÍO SCREENING DIGITAL (04/20/2019 1:37 PM EST) Anatomical Region Laterality Modality Mammography 04/20/2019 10:2 2 AM EST Narrative 04/20/2019 1:37 PM EST [facility] Diagnostic Imaging Department [address] [place] [address] Patient: ??BERNIE,GARCIA M ?/Age/Sex: 1973 - 46 - F Unit#: ??[id number] ? Location/Status: ??SPDIMAM/REG CLI ? Mnemonic/Ordering Site: ??DIGSC/SPMAM Ordering Physician: ??MARCO ANTONIO LAIRD Rocío Screening Digital - 04/20/19 - 8436 History: Bilateral breast cancer screening. Technique: Bilateral digital mammography. Conventional CC and MLO projections with tomosynthesis MLO views and computer aided detection. Findings: Comparison: Radiology and Imaging incorporated [facility] 06/10/2018 and 04/18/2017. Breast tissue is mostly fatty replaced (category a density) bilaterally (as calculated by [employer] software). ??There are benign calcifications bilaterally. ?? There is no suspicious group of microcalcification, no suspicious mass, architectural distortion or suspicious asymmetry. Impression: ??No evidence of malignancy. BIRADS category 2, benign findings, 3342F 12647, 02841 Note: Patient information entered ??into a reminder system with a target due date for the next mammogram; PQRI II 7020F Dictating Physician: ??JAMES COTO MD Electronically Signed by: ??JAMES COTO MD Dic Date/Time: ??04/20/19 1336 Sign date/Time: ??04/20/19 1337 Procedure Note James Coto - 03/13/2022 [facility] Diagnostic Imaging Department [address] [place] [id number] Patient: GARCIA GIBBS M /Age/Sex: 1973 - 46 - F Unit#: [id number] Location/Status: [facility]/REG CLI Mnemonic/Ordering Site: [facility] Ordering Physician: MARCO ANTONIO LAIRD Rocío Screening Digital - 04/20/19 - 6729 History: Bilateral breast cancer screening. Technique: Bilateral digital mammography. Conventional CC and MLOprojections with tomosynthesis MLO views and computer aided detection. Findings: Comparison: Radiology and Imaging incorporated [facility] 06/10/2018 and 04/18/2017. Breast tissue is mostly fatty replaced (category a density) bilaterally(as calculated by [employer] software). There are benigncalcifications bilaterally. There is no suspicious group of microcalcification, nosuspicious mass, architectural distortion or suspicious asymmetry. Impression: No evidence of malignancy. BIRADS category 2, benign findings, 3342F 43564, [address] Note: Patient information entered into a reminder system with a targetdue date for the next mammogram; PQRI II 7025F Dictating Physician: JAMES COTO MD Electronically Signed by: JAMES COTO MD Dic Date/Time: 04/20/19 1336 Sign date/Time: 04/20/19 1337 Nice [place] TATTOOER IMG BI PROCEDURES Final Result from Last 3 Months or Most Recently Relevant to Health Maintenance Insurance [employer] Care Teams Format Proofreader Relationship Specialty Start Date End Date Gwendolyn Roth PCP - General 10/29/23
[2024-09-04 09:57] VITALS: BP 140/88; PULSE 69; TEMP 36.6; O2SAT 97; BMI 25.2
--- NOTE | 2024-09-04 09:57 | MHC.OFFWIV ---
Intake Vital Signs 09/04/24 09:57 Height 5 ft 11 in Weight 181 lb BMI 25.2 BP 140/88 H Blood Pressure Location Lt brachial Position Sitting Pulse 69 Pulse Source Pulse Oximeter Temp 97.9 F Temp Source Oral Pulse Oximetry (%) 97 Intake Visit Reasons: EP Bilat pain in shoulder/arms Patient Tobacco Use Status: Never used Tobacco Allergies No Known Allergies Allergy (Verified 09/04/24 10:41) Medication List - Last Reconciled 09/04/24 by MELVIN Kirkpatrick- allopurinol 300 mg PO DAILY cetirizine (Zyrtec) 10 mg PO DAILY PRN diclofenac sodium 1% (Voltaren Arthritis Pain) 4 grams topical QID fenofibrate 160 mg PO DAILY fluticasone propionate 50 mcg/actuation 1 spray intranasal BID losartan 25 mg PO DAILY rosuvastatin (Crestor) 10 mg PO DAILY Do you need a note to return to daycare/school/sports/work: No HPI HPI Comments History of Present Illness Details History of Present Illness - Complex 54-year-old [facility] male presenting with chronic bilateral shoulder pain. - Persistent bilateral shoulder pain; worsens at night. - Existing treatment with Voltaren with limited efficacy. - Referred to rheumatology due to positive rheumatoid factor. First appt 02/2025 - Prior imaging and consultations with specialists have been conducted. -- Xrays 05/2024; Ortho appt 07/2024. PCP appt 05/2024 Hold statin - normal CK. No improvement w/ cessation of statin. - Multiple abnormal labs; active w/ Heme. Review of Systems - Musculoskeletal: Reports bilateral shoulder pain, exacerbated at night. When he squeezes his shoulders he has worsening pain. The pain is in his shoulders, elbows, forearms and wrists w/o swelling or redness. - General: Denies changes in pain during daytime activity. Physical Exam General: Well developed, well nourished, in no acute distress. Appears stated age. Head: Normocephalic, atraumatic. Eyes: Pupils are equal, round and reactive to light and accommodation. al. Musculoskeletal: . Joints are without swelling, redness, or effusions. Pulses: Peripheral pulses are equal and palpable bilaterally. Extremities: No clubbing, cyanosis nor edema is noted. Psych: Mood and affect appropriate Results - Labs: Positive rheumatoid factor as indicated in discussion. Discussion Notes Complex patient. I spent time reviewing his chart with him. I did advise that his needs are bigger than walk in. When asked what his hope for the visit today was, it was for medicine to help his pain. The patient was informed about the existing positive rheumatoid factor, which may indicate rheumatoid arthritis and is the basis for the referral to a music theory professor. I provided a prescription for meloxicam to manage acute symptoms and advised consumption with food to prevent stomach upset. I did tell him this may or not help. I stressed and Reinforced the importance of keeping upcoming appointments with the primary care provider and specialists. Encouraged the patient to return for any increased or severe symptoms before the scheduled follow-up. Consent Patient was informed and verbally consented to the use of an ambient scribe for clinic note documentation during this visit. Total time spent caring for the patient today was 40 minutes. This includes time spent before the visit reviewing the chart, time spent during the visit, and time spent after the visit on documentation, reviewing laboratory results, diagnostic imaging, medications, performing a medically necessary evaluation, counseling on diagnoses, care coordination, ordering appropriate tests, ordering appropriate medications, review of tests performed by other providers, reporting test results with the patient, communication with other healthcare providers. 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 [employer] Current occupational exposures/hazards: Yes (Works around chemicals) Cognitive needs: No Hearing needs: No Vision needs: Yes (glasses) Physical Exam Vital Signs: Last Vital Signs Temp 97.9 F 09/04/24 09:57 Pulse 69 09/04/24 09:57 BP 140/88 H 09/04/24 09:57 Pulse Ox 97 09/04/24 09:57 BMI result Body Mass Index 25.2 Results Reviewed Results Reviewed: X-rays of the patient's bilateral shoulder show moderate to severe acromioclavicular joint narrowing, type 2 acromion, no acute bony abnormalities Assessment & Plan Assessment & Plan (1) Bilateral shoulder pain: Code(s): M25.511 - Pain in right shoulder; M25.512 - Pain in left shoulder Qualifiers: Chronicity: chronic Qualified Code(s): M25.511 - Pain in right shoulder; M25.512 - Pain in left shoulder; G89.29 - Other chronic pain (2) Bilateral elbow joint pain: Code(s): M25.521 - Pain in right elbow; M25.522 - Pain in left elbow (3) Dyslipidemia: Code(s): E78.5 - Hyperlipidemia, unspecified (4) Elevated ferritin: Code(s): R79.89 - Other specified abnormal findings of blood chemistry (5) Elevated LFTs: Code(s): R79.89 - Other specified abnormal findings of blood chemistry (6) Elevated total protein: Code(s): R77.8 - Other specified abnormalities of plasma proteins (7) Impingement of both shoulders: Code(s): M25.811 - Other specified joint disorders, right shoulder; M25.812 - Other specified joint disorders, left shoulder (8) Polyarthralgia: Code(s): M25.50 - Pain in unspecified joint (9) Rheumatoid factor positive: Code(s): R76.8 - Other specified abnormal immunological findings in serum Plan . Medications: New meloxicam 7.5 mg PO DAILY PRN 30 tabs 0RF pain NS Coding Level of Care Code Est Pt Level 5 (92506) Diagnoses Chronic pain of both shoulders M25.511; M25.512; G89.29 Chronicity: chronic Bilateral elbow joint pain M25.521; M25.522 Dyslipidemia E78.5 Elevated ferritin R79.89 Elevated LFTs R79.89 Elevated total protein R77.8 Impingement of both shoulders M25.811; M25.812 Polyarthralgia M25.50 Rheumatoid factor positive R76.8
== END 2024-09-04 11:26 | disposition home or self-care (01) ==
LOC: HO.HMCWIC 09:22
PROVIDERS: PCP Physician Assistant; Visit Provider Nurse Practitioner Family
DX: M25.511 Pain in right shoulder (principal); M25.512 Pain in left shoulder; G89.29 Other chronic pain; M25.521 Pain in right elbow; M25.522 Pain in left elbow; E78.5 Hyperlipidemia, unspecified; R79.89 Other specified abnormal findings of blood chemistry; R77.8 Other specified abnormalities of plasma proteins; M25.811 Other specified joint disorders, right shoulder; M25.812 Other specified joint disorders, left shoulder; M25.50 Pain in unspecified joint; R76.8 Other specified abnormal immunological findings in serum

== ENCOUNTER → 2024-09-04 09:22 | Outpatient (BNVA) | payer OTHER, SELFPAY | PROVIDERS: PCP Physician Assistant; Visit Provider Nurse Practitioner Family | DX: M25.511 Pain in right shoulder (principal); M25.512 Pain in left shoulder; G89.29 Other chronic pain; M25.521 Pain in right elbow; M25.522 Pain in left elbow; E78.5 Hyperlipidemia, unspecified; R79.89 Other specified abnormal findings of blood chemistry; R77.8 Other specified abnormalities of plasma proteins; M25.811 Other specified joint disorders, right shoulder; M25.812 Other specified joint disorders, left shoulder; R76.8 Other specified abnormal immunological findings in serum | CPT/HCPCS: 99212 ==

== ENCOUNTER 2024-09-22 07:43 | Outpatient (REF) | payer OTHER, SELFPAY ==
--- OUTSIDE RECORDS SUMMARY | 2024-09-22 07:45 | XMS_ITS | Clinical Summary ---
Author Organization [facility] Address [address] [place] [address] Care Team Providers Care Sand Mixer Name Role Phone Unavailable Primary Care Provider [...] intracranial flow-voids at the level of the [place] of [place] are preserved. The dural venous [...] 88 03/25/2024 10:46 AM EST Temperature 36.9 C (98.4 F) 03/25/2024 10:46 AM EST Respiratory Rate 16 03/25/2024 10:46 AM EST [...] 04/23/2017 Depression Annual Screen 2024 04/20/2015 Annual Wellness (Adult): Ind icated (All Coverage) 06/11/2024 06/12/2023, 08/26/2018, 04/23/2017, Additional history exists Dental Prophy 12/16/2024 12/15/2023, 05/22, 10/23/2022 Lipid Screening 12/24/2024 12/25/2023, 09/21, 06/18/2023, Additional history exists Hypertension Screening (#1) 03/25/2025 Diabetes Screening 12/24/2026 12/25/2023, 0 10/04/2023, 06/18/2023, Additional history exists Imm-DTaP/Tdap/Td (3 - Td or Tdap) 06/11/2033 06/12/2023, 06/12/2011, 02/05/2011 Imm-Hepatitis B Completed 07/22/2012, 07/23, 07/16/2011 HIV Screening Completed 01/20/2013 Hepatitis C Screening Completed 01/20/2013 [id number] Completed 12/24/2023, 12/22, 03/13/2021, Additional history exists Imm-Influenza Completed 12/24/2023, 06/2022, 02/20/2022, Additional history exists Alcohol and Drug Screen Completed 03/25/19, 06/12/2023, 06/19/2022, Additional history exists Goals Goal Patient Goal Type Associated Problems Recent Progress Patient-Stated? Author Blood Pressure < 140/90 Blood Pressure HTN (hypertension) 124/80( 025 10:46 AM EST) No Vandana Chávez, GaboD Procedures Procedure Name Priority Date/Time Associated Diagnosis [...] AM EDT) CHOLESTEROL, TOTAL 311(H) <200 mg/dL [facility] HDL CHOLESTEROL 40 > OR = 40 mg/dL [facility] TRIGLYCERIDES 2,415(H) <150 mg/dL [facility] Comment: Verified by repeat analysis. If a non-fasting specimen was collected, consider repeat triglyceride testing on a fasting specimen if clinically indicated. Bree graf al. J. of Clin. Lipidol. 2015;9:129-169. There is increased risk of pancreatitis when the triglyceride concentration is very high (> or = 500 mg/dL, especially if > or = 1000 mg/dL). Bree et al. J. of Clin. Lipidol. 2015;9:129-169. LDL-CHOLESTEROL See Note [employer] Comment: LDL cholesterol not calculated. Triglyceride levels greater than 400 mg/dL invalidate calculated LDL results. Reference range: <100 Desirable range <100 mg/dL for primary prevention; <70 mg/dL for patients with CHD or diabetic patients with > or = 2 CHD risk factors. LDL-C is now calculated using the Soniya calculation, which is a validated novel method providing better accuracy than the Friedewald equation in the estimation of LDL-C. Gabriele SS et al. CURTIS. 2013;310(19): 9840-5486 (http://education.Amazing Photo Letters/faq/RVE181) CHOL/HDLC RATIO 7.8(H) <5.0 (calc) [employer] NON-HDL CHOLESTEROL 271(H) <130 mg/dL (calc) [employer] Comment: Non-HDL level > or = 220 [...] AM EDT 12/25/2023 9:54 AM EDT Narrative [facility] - 12/26/2023 1:34 PM EDT FASTING:YES us Maribeth Campa PA-C LAB - BLOOD DRAW Final Resu lt [facility] [address] [place] [address], [employer] [address] [place] [phone] * COMPREHENSIVE METABOLIC PANEL (12/25/2023 9:53 AM EDT) [facility] GLUCOSE 97 65 - 99 mg/dL [employer] Comment: Fasting reference interval UREA NITROGEN (BUN) 15 7 - 25 mg/dL [employer] CREATININE (blood) 1.14 0.70 - 1.30 mg/dL [facility] EGFR 76 > OR = 60 mL/min/1. 73m2 [facility] BUN/CREATININE RATIO SEE NOTE: 6 - [facility] Comment: Not Reported: BUN and Creatinine are within reference range. SODIUM 135 135 - 146 mmol/L [facility] POTASSIUM 3.7 3.5 - 5.3 mmol/L [facility] CHLORIDE 101 98 - 110 mmol/L [facility] CARBON DIOXIDE 23 20 - 32 mmol/L [facility] CALCIUM 9.7 8.6 - 10.3 mg/dL [facility] PROTEIN, TOTAL 7.3 6.1 - 8.1 g/dL [facility] ALBUMIN 4.9 3.6 - 5.1 g/dL [facility] GLOBULIN 2.4 1.9 - 3.7 g/dL (calc) [facility] ALBUMIN/GLOBULI N RATIO 2.0 1.0 - 2.5 (calc) [facility] BILIRUBIN, TOTAL 0.7 0.2 - 1.2 mg/dL [facility] ALKALINE PHOSPHATASE 46 35 - 144 U/L [facility] AST 32 10 - 35 U/L [facility] Comment: Results slightly increased due to lipemia. ALT 35 9 - 46 U/L [facility] Blood Blood / Unknown 12/25/2023 9 :53 AM EDT 12/25/2023 9:54 AM EDT Narrative [facility] - 12/26/2023 1:34 PM EDT FASTING:YES Maribeth Campa PA-C LAB - BLOOD DRAW Final Resu lt [facility] [address] [address], [facility] [address] [phone] * HIV-1 & HIV-2 ANTIBODIES (01/20/2013 3:16 PM EDT) HIV 1 AND 2 ANTIBODY SCREEN NEGATIVE NEGATIVE [facility] Comment:Performer: [facility] (ML) Blood specimen (specimen) Blood / Unknown 01/20/2013 3:16 PM EDT 01/20/2013 3:18 PM EDT [facility] - 01/21/2013 8:07 AM EDT [employer] [address] [place] [address] PT [place] [id number] ORD# [id number] Mj Pond MD LAB - BLOOD DRAW Edited Performing Organization Address City/[facility]/ZIP Co de Phone Number [facility] [address] [place] [address], [place] [phone] * (ABNORMAL) ACUTE HEPATITIS PANEL (01/20/2013 3:16 PM EDT) HEPATITIS B SURFACE ANTIGEN NEGATIVE NEGATIVE [facility] Comment:Performer: [facility] (ML) HEPATITIS C VIRUS ANTIBODY NEGATIVE NEGATIVE [facility] Comment:Performer: [facility] (ML) HEPATITIS B CORE ANTIBODY IGM NEGATIVE NEGATIVE [facility] Comment:Performer: [facility] (ML) HEPATITIS A ANTIBODY TOTAL POSITIVE(A) NEGATIVE [facility] Comment:Performer: [facility] (ML) Blood specimen (specimen) Blood / Unknown 01/20/2013 3:16 PM EDT 01/20/2013 3:18 PM EDT [facility] - 01/20/2013 7:00 PM EDT [employer] [address] [place] [address] [place] [id number] ORD# [id number] Mj Pond MD LAB - BLOOD DRAW Edited Performing Organization Address City/[facility]/ZIP Co de Phone Number [facility] [address] [place] [address], [place] [phone] from Last 3 Months or Most Recently Relevant to Health Maintenance Insurance [employer] Member Subscriber Plan / Payer (Ef fective 2024-Present) Name:Garcia Bunn Relation to Subscriber:Self Name:Garcia Bunn Payer ID:[id number] Type:Indemnity Address: [address] [address] [facility] NET
--- OUTSIDE RECORDS SUMMARY | 2024-09-22 07:45 | XMS_ITS | Clinical Summary ---
Author Organization [facility] Address [address] [place] [address] Phone Care Team Providers Care Marketing Content Specialist Name Role Phone Gwendolyn Roth Primary Care Provider [phone] Medications polyethylene glycol (Golytely) 236-22.74-6.74 -5.86 gram [...] Team Description 07/20/2024 Telephone Gastroenterology - [address] [address] Gene Rutherford MD Special Procedure [...] Procedure Name Priority Date/Time Associated Diagnosis Comments [facility] SCREENING DIGITAL Routine 04/20/2019 1:37 PM EST Encounter for screening mammogram for malignant neoplasm of breast from Last 3 Months or Most Recently Relevant to Health Maintenance Results * [facility] SCREENING DIGITAL (04/20/2019 1:37 PM EST) Anatomical Region Laterality Modality Mammography 04/20/2019 10:2 2 AM EST Narrative 04/20/2019 1:37 PM EST [facility] Diagnostic Imaging Department [address] [place] [address] Patient: GARCIA GIBBS Pascual /Age/Sex: 1973 - 46 - F Unit#: [id number] [facility]Ordering Site[facility] Ordering Physician: MARCO ANTONIO LAIRD [facility] Screening Digital - 04/20/195 History: Bilateral breast cancer screening. Technique: Bilateral digital mammography. Conventional CC and MLO projections with tomosynthesis MLO views and computer aided detection. Findings: Comparison: Radiology and Imaging incorporated [facility] 06/10/2018 and 04/18/2017. Breast tissue is mostly fatty replaced (category a density) bilaterally (as calculated by [employer] software). There are benign calcifications bilaterally. There is no suspicious group of microcalcification, no suspicious mass, architectural distortion or suspicious asymmetry. Impression: No evidence of malignancy. BIRADS category 2, benign findings, 3342F 06800, 14498 Note: Patient information entered into a reminder system with a target due date for the next mammogram; PQRI II 7094F Dictating Physician: JAMES COTO MD Electronically Signed by: JAMES COTO MD Dic Date/Time: 04/20/19 1336 Sign date/Time: 04/20/19 1337 Procedure Note James Coto - 03/13/2022 [facility] Diagnostic Imaging Department [address] [place] [address] Patient: GARCIA GIBBS Pascual /Age/Sex: 1973 - 46 - F Unit#: [id number] Location/Status: [facility] CLI Mnemonic/Ordering Site: [facility] Ordering Physician: MARCO ANTONIO LAIRD [place] Screening Digital - 04/20/19 - 1045 History: Bilateral breast cancer screening. Technique: Bilateral digital mammography. Conventional CC and MLOprojections with tomosynthesis MLO views and computer aided detection. Findings: Comparison: Radiology and Imaging incorporated [facility] 06/10/2018 and 04/18/2017. Breast tissue is mostly fatty replaced (category a density) bilaterally(as calculated by [employer] software). There are benigncalcifications bilaterally. There is no suspicious group of microcalcification, nosuspicious mass, architectural distortion or suspicious asymmetry. Impression: No evidence of malignancy. BIRADS category 2, benign findings, 3342F 52986, 41045 Note: Patient information entered into a reminder system with a targetdue date for the next mammogram; PQRI II 7067F Dictating Physician: JAMES COTO MD Electronically Signed by: JAMES COTO MD Dic Date/Time: 04/20/19 1336 Sign date/Time: 04/20/19 1337 [place] DONOR SERVICES SPECIALIST IMG BI PROCEDURES Final Result from Last 3 Months or Most Recently Relevant to Health Maintenance Insurance [address] [place], [place] [id number] COMMERCIAL GENERIC Care Teams Marketing Content Specialist Relationship Specialty Start Date End Date Gwendolyn Roth PCP - General 10/29/23
== END 2024-09-22 07:44 | disposition home or self-care (01) ==
LOC: HO.US 07:43
PROVIDERS: Absent Provider Internal Medicine; PCP Physician Assistant; Visit Provider Physician Assistant
DX: Z13.89 Encounter for screening for other disorder (principal)

== ENCOUNTER 2024-09-23 08:43 | Outpatient (AMB) | payer OTHER, SELFPAY ==
--- OUTSIDE RECORDS SUMMARY | 2024-09-23 08:50 | XMS_ITS | Clinical Summary ---
Author Organization [facility] Address [address] [place] [address] Phone Care Team Providers Care Supervisor Payroll Name Role Phone Gwendolyn Roth Primary Care Provider [phone] Medications polyethylene glycol (Golytely) 236-22.74-6.74 -5.86 gram [...] Team Description 07/20/2024 Telephone Gastroenterology - [address] [address] Gene Rutherford MD Special Procedure [...] Procedure Name Priority Date/Time Associated Diagnosis Comments [facility] SCREENING DIGITAL Routine 04/20/2019 1:37 PM EST Encounter for screening mammogram for malignant neoplasm of breast from Last 3 Months or Most Recently Relevant to Health Maintenance Results * [facility] SCREENING DIGITAL (04/20/2019 1:37 PM EST) Anatomical Region Laterality Modality Mammography 04/20/2019 10:2 2 AM EST Narrative 04/20/2019 1:37 PM EST [facility] Diagnostic Imaging Department [address] [place] [address] Patient: GARCIA GIBBS Pascual /Age/Sex: 1973 - 46 - F Unit#: [id number] [facility]: [facility]Ordering Site: [facility] Ordering Physician: MARCO ANTONIO LAIRD [facility] Screening Digital - 04/20/195 History: Bilateral breast cancer screening. Technique: Bilateral digital mammography. Conventional CC and MLO projections with tomosynthesis MLO views and computer aided detection. Findings: Comparison: Radiology and Imaging incorporated [facility] 06/10/2018 and 04/18/2017. Breast tissue is mostly fatty replaced (category a density) bilaterally (as calculated by [employer] software). There are benign calcifications bilaterally. There is no suspicious group of microcalcification, no suspicious mass, architectural distortion or suspicious asymmetry. Impression: No evidence of malignancy. BIRADS category 2, benign findings, 3342F 71960, 97564 Note: Patient information entered into a reminder system with a target due date for the next mammogram; PQRI II 7003F Dictating Physician: JAMES COTO MD Electronically Signed by: JAMES COTO MD Dic Date/Time: 04/20/19 1336 Sign date/Time: 04/20/19 1337 Procedure Note James Coto - 03/13/2022 [facility] Diagnostic Imaging Department [address] [place] [address] Patient: GARCIA GIBBS Pascual /Age/Sex: 1973 - 46 - F Unit#: [id number] Location/Status: [facility] CLI Mnemonic/Ordering Site: [facility] Ordering Physician: MARCO ANTONIO LAIRD [place] Screening Digital - 04/20/19 - 1045 History: Bilateral breast cancer screening. Technique: Bilateral digital mammography. Conventional CC and MLOprojections with tomosynthesis MLO views and computer aided detection. Findings: Comparison: Radiology and Imaging incorporated [facility] 06/10/2018 and 04/18/2017. Breast tissue is mostly fatty replaced (category a density) bilaterally(as calculated by [employer]para software). There are benigncalcifications bilaterally. There is no suspicious group of microcalcification, nosuspicious mass, architectural distortion or suspicious asymmetry. Impression: No evidence of malignancy. BIRADS category 2, benign findings, 3342F 57767, 29841 Note: Patient information entered into a reminder system with a targetdue date for the next mammogram; PQRI II 7084F Dictating Physician: JAMES COTO MD Electronically Signed by: JAMES COTO MD Dic Date/Time: 04/20/19 1336 Sign date/Time: 04/20/19 1337 [place] VETERINARY RADIOLOGIST IMG BI PROCEDURES Final Result from Last 3 Months or Most Recently Relevant to Health Maintenance Insurance [employer] [address] [place], [place] [id number] COMMERCIAL GENERIC Care Teams Supervisor Payroll Relationship Specialty Start Date End Date Gwendolyn Roth PCP - General 10/29/23
--- NOTE | 2024-09-23 09:25 | A.OFFPC_ITS ---
Vital Signs 09/23/24 09:28 Height 5 ft 11 in Weight 175 lb 2 oz BMI 24.4 BP 138/76 Blood Pressure Location Rt brachial Position Sitting Respiration 12 Pulse 66 Pulse Source Pulse Oximeter Temp 97.8 F Temp Source Oral Pulse Oximetry (%) 98 Oxygen Delivery Method Room Air Intake Visit Reasons: Pain arm/shoulder Intake Note: bilateral shoulder and elbow pain. sxs for 7 months. Wants to know if he should be on the fenofibrate. Was told to stop, but received rx from the pharmacy. Bee Producer Required: Yes Bee Producer Language: [facility] Bee Producer Name: Dorina [id number] Allergies No Known Allergies Allergy (Verified 09/23/24 09:27) Medication List - Last Reconciled 09/23/24 by Carrie Govea PA-C allopurinol 300 mg PO DAILY cetirizine (Zyrtec) 10 mg PO DAILY PRN diclofenac sodium 1% (Voltaren Arthritis Pain) 4 grams topical QID fenofibrate 160 mg PO DAILY fluticasone propionate 50 mcg/actuation 1 spray intranasal BID losartan 25 mg PO DAILY rosuvastatin (Crestor) 10 mg PO DAILY Tobacco use date assessed: 09/23/24 Dental Screening Dental Screen Date: 06/02/24 HPI Pain arm/shoulder HPI Details Patient is a 54-year-old male who presents today for a follow up. He is relatively new here in transfer [facility]. He has a history of bilateral shoulder pain, elbow pain, hypertension and hyperlipidemia. [facility] Bee Producer [id number] is used today CV: Blood pressure today in the office 138/76. He is currently on losartan 25 mg. He is on rosuvastatin 5 mg and fenofibrate 160 mg daily (he has not started this yet). Last lipids were very elevated. Triglycerides were 1600. He does not drink alcohol. Musculoskeletal: He reports bilateral shoulder and elbow pain that started about 2 years ago. He states it feels stiff and achy and is worse at night. He states now for the last 10 days he has had an increase in joint pains. He states that his wrists are now achy as well. No known trauma. No joint swelling. He has tried NSAID without improvement. He states that he has imaging done over a year ago and states he was told everything was normal. -he recently had labs completed which di d show rheumatoid factor positive. -he has followed with ortho and has an a ppointment scheduled next week. Has not noticed any improvement of the shoulder pain at all. -Pain is not responding to meloxicam. Erika green did try this only twice. GI: Last LFTs were elevated. No known history of this per patient. He did have an ultrasound ordered but states that he did not realize he needed to fast for the test so they had to reschedule him. He is scheduled 11/04. He did not repeat his liver tests are hepatitis panel. He states that he does not have any abdominal pain and discoloration of the skin. No nausea, vomiting or weight loss. No bloating. He was referred to GI. Heme/Onc: Has followed with Heme-Onc and again waiting for the liver ultrasound. 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 [employer] Current occupational exposures/hazards: Yes (Works around chemicals) Cognitive needs: No Hearing needs: No Vision needs: Yes (glasses) Questionnaire Thrive Questionnaire Date Thrive assessed: 06/02/24 I am a: Patient What is your living situation today?: I choose not to answer this question Within the past 12 months, did the food you bought not last and you didn't have the money to get more?: I choose not to answer this question Within the past 12 months, did you worry whether your food would run out before you got money to buy more?: I choose not to answer this question Do you have trouble paying for medicines?: I choose not to answer this question Do you have trouble getting transportation to medical appointments?: I choose not to answer this question Do you have trouble paying your heating and electricity bill?: I choose not to answer this question Do you have trouble taking care of your child, family member or friend?: I choose not to answer this question Do you have trouble with day-to-day activities such as bathing, preparing meals, shopping, managing finances, etc.?: I choose not to answer this question Are you currently unemployed and looking for a job?: I choose not to answer this question Are you interested in more education?: I choose not to answer this question Please select the resources that you would like help with: None Currently or been in a relationship where the following occur: I choose not to answer THRIVE Score: 0 AUDIT C Alcohol Use Questionnaire (AUDIT-C) 1. How often do you have a drink containing alcohol?: Monthly or less 2. How many drinks containing alcohol do you have on a typical day when you are drinking?: 1 or 2 3. How often do you have six or more drinks on one occasion?: Never Total Score: 1 TESS-7 AMB Questionnaire TESS-7 Date TESS - 7 assessed: 06/02/24 Source: Developed by Drs. Sky Meek, Erika Chávez, Jessee Joel and colleagues, with an educational jessica from [employer]. Physical exam (Primary Care) Vital Signs: Last Vital Signs Temp 97.8 F 09/23/24 09:28 Pulse 66 09/23/24 09:28 Resp 12 09/23/24 09:28 BP 138/76 09/23/24 09:28 Pulse Ox 98 09/23/24 09:28 Oxygen Delivery Method Room Air 09/23/24 09:28 BMI result Body Mass Index 24.4 Tobacco/Smoking Status: Tobacco use Status Tobacco use date assessed 09/23/24 09/23/24 09:33 Patient Tobacco Use Status Never used Tobacco 09/23/24 09:38 e-Cigarette/Vaping Use Never Used 09/23/24 09:38 Thrive Assessment: Date of Thrive Assessment Date Thrive assessed 06/02/24 09/23/24 09:33 Currently or been in a relationship where the following occur: I choose not to answer Const Orientation/consciousness: patient oriented x3 HENMT Ears: hearing grossly normal bilaterally Neck Thyroid: Thyroid normal Lymphatic: no lymphadenopathy noted Resp Auscultation: clear to auscultation bilaterally Cardio Rate: regular rate Rhythm: regular rhythm Heart sounds: S1 normal heart sound present and S2 normal heart sound present GI Inspection: Yes normal to inspection Palpation (GI): Soft to palpation and Other GI palpation findings present (nontender, no cva tenderness) Auscultation: normoactive bowel sounds Rectal Exam - Male: Yes deferred Skin General skin exam: no rashes or lesions noted Neuro General: patient oriented x3, gait normal and no focal motor deficits Results Reviewed Results Reviewed: Laboratory Tests 07/07/24 08/25/24 10:06 13:42 Sodium 142 Potassium 4.0 Chloride 109 H Carbon Dioxide 25 Anion Gap 12 BUN 14 Creatinine 1.04 Estimated GFR > 60 Random Glucose 86 Calcium 9.4 Iron 157 TIBC 336 % Saturation 47 Unsat Iron Binding 179 Ferritin 455 H Total Bilirubin 1.1 H Direct Bilirubin 0.4 GGT 127 H AST 41 H ALT 61 H Alkaline Phosphatase 65 Lactate Dehydrogenase 168 Total Creatine Kinase 169 Coding Level of Care Code Est Pt Level 4 (11376) Complex EM visit Add On G2211 Diagnoses Primary hypertension I10 Hypertension type: primary hypertension Dyslipidemia E78.5 Polyarthralgia M25.50 Anemia D64.9 Elevated LFTs R79.89 Elevated ferritin R79.89 Assessment & Plan Assessment & Plan (1) HTN (hypertension): Code(s): I10 - Essential (primary) hypertension Category: Medical Qualifiers: Hypertension type: primary hypertension Qualified Code(s): I10 - Essential (primary) hypertension Plan: continue current plan (2) Dyslipidemia: Code(s): E78.5 - Hyperlipidemia, unspecified Category: Medical Plan: advised to start the fenofibrate as directed continue crestor cpk ordered and urine will monitor lipids (3) Polyarthralgia: Code(s): M25.50 - Pain in unspecified joint Category: Medical Plan: start diclofenac no signs of effusions advised to follow up if anything worsens or changes he has followed with ortho and has follow up next week he is ra factor positive and has follow up with rheum in feb (4) Anemia: Code(s): D64.9 - Anemia, unspecified Category: Medical Plan: will check cbc today (5) Elevated LFTs: Code(s): R79.89 - Other specified abnormal findings of blood chemistry Category: Medical Plan: advised he needs to get the u/s he has follow up scheduled with gi i am going to trend these today (6) Elevated ferritin: Code(s): R79.89 - Other specified abnormal findings of blood chemistry Category: Medical Plan: will recheck Orders: Orders Lipid Panel Today D61.818 - Other pancytopenia, D64.9 - Anemia, unspecified, E78.5 - Hyperlipidemia, unspecified, I10 - Essential (primary) hypertension, M25.50 - Pain in unspecified joint, R79.89 - Other specified abnormal findings of blood chemistry UA CC w/rflx Micro + Cult Today D61.818 - Other pancytopenia, D64.9 - Anemia, unspecified, E78.5 - Hyperlipidemia, unspecified, I10 - Essential (primary) hypertension, M25.50 - Pain in unspecified joint, R79.89 - Other specified abnormal findings of blood chemistry, Z13.220 - Encounter for screening for lipoid disorders Erythrocyte Sedimentation Rate Today D61.818 - Other pancytopenia, D64.9 - Anemia, unspecified, E78.5 - Hyperlipidemia, unspecified, I10 - Essential (primary) hypertension, M25.50 - Pain in unspecified joint, R79.89 - Other specified abnormal findings of blood chemistry Creatine Kinase Total Today D61.818 - Other pancytopenia, D64.9 - Anemia, unspecified, E78.5 - Hyperlipidemia, unspecified, I10 - Essential (primary) hypertension, M25.50 - Pain in unspecified joint, R79.89 - Other specified abnormal findings of blood chemistry Liver Panel Today D61.818 - Other pancytopenia, D64.9 - Anemia, unspecified, E78.5 - Hyperlipidemia, unspecified, I10 - Essential (primary) hypertension, M25.50 - Pain in unspecified joint, R79.89 - Other specified abnormal findings of blood chemistry Complete Blood Count Auto Diff Today D61.818 - Other pancytopenia, D64.9 - Anemia, unspecified, E78.5 - Hyperlipidemia, unspecified, I10 - Essential (primary) hypertension, M25.50 - Pain in unspecified joint, R79.89 - Other specified abnormal findings of blood chemistry Microalbumin, Random (w Creat) Today D61.818 - Other pancytopenia, D64.9 - Anemia, unspecified, E78.5 - Hyperlipidemia, unspecified, I10 - Essential (primary) hypertension, M25.50 - Pain in unspecified joint, R79.89 - Other specified abnormal findings of blood chemistry Ferritin Today R79.89 - Other specified abnormal findings of blood chemistry Medications: New diclofenac sodium 50 mg PO BID 60 tabs 0RF
[2024-09-23 09:28] VITALS: BP 138/76; PULSE 66; RESP 12; TEMP 36.6; O2SAT 98; BMI 24.4
== END 2024-09-23 10:13 | disposition home or self-care (01) ==
LOC: HO.HMCFM 08:44
PROVIDERS: PCP Physician Assistant; Visit Provider Physician Assistant
DX: I10 Essential (primary) hypertension (principal); E78.5 Hyperlipidemia, unspecified; M25.50 Pain in unspecified joint; D64.9 Anemia, unspecified; R79.89 Other specified abnormal findings of blood chemistry

== ENCOUNTER → 2024-09-23 08:43 | Outpatient (BNVA) | payer OTHER, SELFPAY | PROVIDERS: PCP Physician Assistant; Visit Provider Physician Assistant | DX: I10 Essential (primary) hypertension (principal); E78.5 Hyperlipidemia, unspecified; M25.50 Pain in unspecified joint; D64.9 Anemia, unspecified; R79.89 Other specified abnormal findings of blood chemistry | CPT/HCPCS: 99212 ==

== ENCOUNTER 2024-09-23 11:04 | Outpatient (REF) | payer OTHER, SELFPAY ==
[2024-09-23 14:46] LABS: MANUAL DIFF FLAG NO
[2024-09-23 14:48] LABS: Appearance Urine Clear; Glucose Urine UA Negative (Negative); PH 5.0 (5.0-9.0); Specific Gravity - Urine 1.020 (1.005-1.025)
[2024-09-23 14:56] LABS: Hematocrit 35.9 % (42.0-52.0); Hemoglobin 12.4 g/dl (14.0-18.0); Imm Gran Abs Auto 0.01 X10*3/uL (0.00-0.03); Imm Gran Pct Auto 0.2 % (0.0-0.4); Lymphocytes Absolute Auto 1.8 X10*3/uL (1.2-4.9); Mean Corpuscular HGB Conc 34.5 g/dl (31.0-36.0); Mean Corpuscular Hemoglobin 28.6 pg (27.0-33.0); Mean Corpuscular Volume 82.9 fL (80.0-98.0); NRBC Abs Auto 0.000 X10*3/uL (0.0-0.012); NRBC Pct Auto 0.0 /100WBC (0.0-0.2); Platelet Count 101 X10*3/uL (160-400); Red Blood Count 4.33 X10*6/uL (4.60-5.80); White Blood Count 4.6 X10*3/uL (4.8-10.8)
[2024-09-23 15:54] LABS: Alanine Aminotransferase 68 U/L (0-40); Albumin Level 4.6 g/dL (3.5-5.0); Alkaline Phosphatase 52 U/L (39-117); Aspartate Amino Transferase 56 U/L (5-37); Cholesterol 157 mg/dL (<200); HDL Cholesterol 31 mg/dL (>40); Total Protein 7.0 g/dL (6.5-8.0); Triglycerides 621 mg/dL (<150)
[2024-09-23 15:57] LABS: Ferritin 349 ng/mL (20-250)
[2024-09-23 16:16] LABS: Microalbum/Creatinine Ratio Ur 4.3 ug/mg cr (<30)
== END 2024-09-23 11:05 | disposition home or self-care (01) ==
LOC: HO.WFDLDS 11:04
PROVIDERS: Visit Provider Physician Assistant
DX: I10 Essential (primary) hypertension (principal); E78.5 Hyperlipidemia, unspecified; R79.89 Other specified abnormal findings of blood chemistry; D61.818 Other pancytopenia; D64.9 Anemia, unspecified; M25.50 Pain in unspecified joint; Z13.220 Encounter for screening for lipoid disorders
CPT/HCPCS: 36415; 80061; 80076; 81003; 82043; 82550; 82570; 82728; 85025; 85652

== ENCOUNTER 2024-10-06 10:54 | Outpatient (AMB) | payer OTHER, SELFPAY ==
--- NOTE | 2024-10-06 11:14 | MHC.PC.OV ---
Vital Signs 10/06/24 11:19 10/06/24 11:22 Height 5 ft 11 in Weight 178 lb BMI 24.8 BP 144/86 H 140/86 H Blood Pressure Location Rt brachial Rt brachial Position Sitting Sitting Respiration 14 Pulse 59 Pulse Source Pulse Oximeter Pulse Oximetry (%) 99 Oxygen Delivery Method Room Air Intake Visit Reasons: fu liver ultrasound /labs and med check Intake Note: Follow up labs, and medication [employer] Radio Operator Required: Yes Centre[employer] Radio Operator Language: Formerly [facility] Centre[employer] Radio Operator Name: [id number] Allergies No Known Allergies Allergy (Verified 10/06/24 11:15) Medication List - Last Reconciled 10/06/24 by Carrie Govea PA-C allopurinol 300 mg PO DAILY cetirizine (Zyrtec) 10 mg PO DAILY PRN diclofenac sodium 50 mg PO BID diclofenac sodium 1% (Voltaren Arthritis Pain) 4 grams topical QID fenofibrate 160 mg PO DAILY fluticasone propionate 50 mcg/actuation 1 spray intranasal BID losartan 25 mg PO DAILY Tobacco use date assessed: 10/06/24 Dental Screening Dental Screen Date: 06/02/24 HPI fu liver ultrasound /labs and med check HPI Details Patient is a 54-year-old male who presents today for a follow up. Wan [employer] Radio Operator is used today CV: Blood pressure today in the office 140/86. He is currently on losartan 25 mg. He is on rosuvastatin 10 mg and fenofibrate 160 mg daily. He just started the fenofibrate 2 weeks ago in his tolerating this. He does not drink alcohol. Musculoskeletal: He reports bilateral shoulder and elbow pain that started about 2 years ago. He states it feels stiff and achy and is worse at night. He states now for the last 10 days he has had an increase in joint pains. He states that his wrists are now achy as well. No known trauma. No joint swelling. He has tried NSAID without improvement. He states that he has imaging. -he recently had labs completed which did show rheumatoid factor positive. -he has followed with ortho and was supposed to see them last week but had to reschedule. Has not noticed any improvement of the shoulder pain at all. -Pain is not responding to meloxicam. He did try this only twice. We just tried diclofenac without any improvement. GI: Last LFTs were elevated. No known history of this per patient. He did have an ultrasound ordered but states that he did not realize he needed to fast for the test so they had to reschedule him. He is scheduled 11/04. He did not repeat his liver tests are hepatitis panel. He states that he does not have any abdominal pain and discoloration of the skin. No nausea, vomiting or weight loss. No bloating. He was referred to GI. Heme/Onc: Has followed with Heme-Onc and again waiting for the liver ultrasound. 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) Cognitive needs: No Hearing needs: No Vision needs: Yes (glasses) Questionnaire Thrive Questionnaire Date Thrive assessed: 06/02/24 I am a: Patient What is your living situation today?: I choose not to answer this question Within the past 12 months, did the food you bought not last and you didn't have the money to get more?: I choose not to answer this question Within the past 12 months, did you worry whether your food would run out before you got money to buy more?: I choose not to answer this question Do you have trouble paying for medicines?: I choose not to answer this question Do you have trouble getting transportation to medical appointments?: I choose not to answer this question Do you have trouble paying your heating and electricity bill?: I choose not to answer this question Do you have trouble taking care of your child, family member or friend?: I choose not to answer this question Do you have trouble with day-to-day activities such as bathing, preparing meals, shopping, managing finances, etc.?: I choose not to answer this question Are you currently unemployed and looking for a job?: I choose not to answer this question Are you interested in more education?: I choose not to answer this question Please select the resources that you would like help with: None Currently or been in a relationship where the following occur: I choose not to answer THRIVE Score: 0 TESS-7 AMB Questionnaire TESS-7 Date TESS - 7 assessed: 06/02/24 Source: Developed by Drs. Sky Meek, Erika Chávez, Jessee Joel and colleagues, with an educational jessica from [employer]. Physical exam (Primary Care) Vital Signs: Last Vital Signs Pulse 59 10/06/24 11:19 Resp 14 10/06/24 11:19 BP 140/86 H 10/06/24 11:22 Pulse Ox 99 10/06/24 11:19 Oxygen Delivery Method Room Air 10/06/24 11:19 BMI result Body Mass Index 24.8 Tobacco/Smoking Status: Tobacco use Status Tobacco use date assessed 10/06/24 10/06/24 11:16 Patient Tobacco Use Status Never used Tobacco 10/06/24 11:21 e-Cigarette/Vaping Use Never Used 10/06/24 11:21 Thrive Assessment: Date of Thrive Assessment Date Thrive assessed 06/02/24 10/06/24 11:16 Currently or been in a relationship where the following occur: I choose not to answer Const Orientation/consciousness: patient oriented x3 HENMT Ears: hearing grossly normal bilaterally Neck Thyroid: Thyroid normal Lymphatic: no lymphadenopathy noted Resp Auscultation: clear to auscultation bilaterally Cardio Rate: regular rate Rhythm: regular rhythm Heart sounds: S1 normal heart sound present and S2 normal heart sound present GI Inspection: Yes normal to inspection Palpation (GI): Soft to palpation and Other GI palpation findings present (nontender, no cva tenderness) Auscultation: normoactive bowel sounds Rectal Exam - Male: Yes deferred Skin General skin exam: no rashes or lesions noted Neuro General: patient oriented x3, gait normal and no focal motor deficits Coding Level of Care Code Est Pt Level 4 (69289) Complex EM visit Add On G2211 Diagnoses Primary hypertension I10 Hypertension type: primary hypertension Polyarthralgia M25.50 Elevated LFTs R79.89 Assessment & Plan Assessment & Plan (1) HTN (hypertension): Code(s): I10 - Essential (primary) hypertension Category: Medical Qualifiers: Hypertension type: primary hypertension Qualified Code(s): I10 - Essential (primary) hypertension Plan: Elevated above goal. Increase losartan to 50 mg (2) Polyarthralgia: Code(s): M25.50 - Pain in unspecified joint Category: Medical Plan: We will discontinue diclofenac. We will try Celebrex. We will try holding a statin for a couple weeks to see if any improvement. Advised to continue with the fenofibrate (3) Elevated LFTs: Code(s): R79.89 - Other specified abnormal findings of blood chemistry Category: Medical Plan: We will recheck labs in 2-3 weeks. Ultrasound is scheduled for next month. Orders: Orders Basic Metabolic Panel Today I10 - Essential (primary) hypertension, M25.50 - Pain in unspecified joint, R79.89 - Other specified abnormal findings of blood chemistry Complete Blood Count Auto Diff Today I10 - Essential (primary) hypertension, M25.50 - Pain in unspecified joint, R79.89 - Other specified abnormal findings of blood chemistry Liver Panel Today I10 - Essential (primary) hypertension, M25.50 - Pain in unspecified joint, R79.89 - Other specified abnormal findings of blood chemistry Medications: New celecoxib (Celebrex) 200 mg PO BID 60 caps 2RF losartan 50 mg PO DAILY 90 tabs 0RF Discontinued rosuvastatin (Crestor) Discontinued Reason: Doctor's Order 10 mg PO DAILY 90 tabs 2RF diclofenac sodium Discontinued Reason: Doctor's Order 50 mg PO BID 60 tabs 0RF losartan Discontinued Reason: Doctor's Order 25 mg PO DAILY 90 tabs 3RF Patient Instructions: stop crestor (rosuvastatin) keep the fenofibrate start celebrex 200 mg twice a day stop diclofenac increase losartan to 50 mg blood work in 2 weeks f/u in 2-3 weeks
[2024-10-06 11:19] VITALS: BP 144/86; PULSE 59; RESP 14; O2SAT 99; BMI 24.8
[2024-10-06 11:22] VITALS: BP 140/86
--- OUTSIDE RECORDS SUMMARY | 2024-10-06 11:43 | XMS_ITS | Clinical Summary ---
Author Organization [facility] Address [address] [place] [address] Phone Care Team Providers Care Sizing Sponger Name Role Phone Gwendolyn Roth Primary Care Provider [phone] Medications polyethylene glycol (Golytely) 236-22.74-6.74 -5.86 gram [...] Team Description 07/20/2024 Telephone Gastroenterology - [address] [address] Gene Rutehrford MD Special Procedure CX from Last 3 [...] BMP Blood Test 09/01/2024 09/02/2023 Influenza Vaccine (#1) 2024 , 12/24/2019, 03/10/2019, Additional history exists Cholesterol Screening [...] Pneumococcal Vaccine: 50+ Years Completed 02/26/2023, 05/07/2012 Zoster Vaccines Completed 02/26/2023, 11/21/2022 HIB Vaccines [...] Procedure Name Priority Date/Time Associated Diagnosis Comments [facility] SCREENING DIGITAL Routine 04/20/2019 1:37 PM EST Encounter for screening mammogram for malignant neoplasm of breast from Last 3 Months or Most Recently Relevant to Health Maintenance Results * [facility] SCREENING DIGITAL (04/20/2019 1:37 PM EST) Anatomical Region Laterality Modality Mammography 04/20/2019 10:2 2 AM EST Narrative 04/20/2019 1:37 PM EST [facility] Diagnostic Imaging Department [address] [place], [place] [id number] Patient: GARCIA GIBBS Pascual /Age/Sex: 1973 - 46 - F Unit#: [id number] Location/Status: [facility] Mnemonic/Ordering Site: [facility] Ordering Physician: MARCO ANTONIO LAIRD [facility] Screening Digital - 04/20/19 - 1045 History: Bilateral breast cancer screening. Technique: Bilateral digital mammography. Conventional CC and MLO projections with tomosynthesis MLO views and computer aided detection. Findings: Comparison: Radiology and Imaging incorporated [facility] 06/10/2018 and 04/18/2017. Breast tissue is mostly fatty replaced (category a density) bilaterally (as calculated by [employer] software). There are benign calcifications bilaterally. There is no suspicious group of microcalcification, no suspicious mass, architectural distortion or suspicious asymmetry. Impression: No evidence of malignancy. BIRADS category 2, benign findings, 3342F 50898, [id number] Note: Patient information entered into a reminder system with a target due date for the next mammogram; PQRI II 7056F Dictating Physician: JAMES COTO MD Electronically Signed by: JAMES COTO MD Dic Date/Time: 04/20/19 1336 Sign date/Time: 04/20/19 1337 Procedure Note James Coto - 03/13/2022 [facility] Diagnostic Imaging Department [address] [place] [id number] Patient: BERNIEGARCIA /Age/Sex: 1973 - 46 - F Unit#: [id number] Location/Status: [facility] CLI Mnemonic/Ordering Site: [facility] Ordering Physician: MARCO ANTONIO LAIRD [place] Screening Digital - 04/20/19 - 1045 History: Bilateral breast cancer screening. Technique: Bilateral digital mammography. Conventional CC and MLOprojections with tomosynthesis MLO views and computer aided detection. Findings: Comparison: Radiology and Imaging incorporated [facility] 06/10/2018 and 04/18/2017. Breast tissue is mostly fatty replaced (category a density) bilaterally(as calculated by [employer] software). There are benigncalcifications bilaterally. There is no suspicious group of microcalcification, nosuspicious mass, architectural distortion or suspicious asymmetry. Impression: No evidence of malignancy. BIRADS category 2, benign findings, 3342F 22807, [id number] Note: Patient information entered into a reminder system with a targetdue date for the next mammogram; PQRI II 7025F Dictating Physician: JAMES COTO MD Electronically Signed by: JAMES COTO MD Dic Date/Time: 04/20/19 1336 Sign date/Time: 04/20/19 1337 [place] [employer] IMG BI PROCEDURES Final Result from Last 3 Months or Most Recently Relevant to Health Maintenance Insurance [employer] Care Teams Sizing Sponger Relationship Specialty Start Date End Date Gwendolyn Roth PCP - General 10/29/23
--- OUTSIDE RECORDS SUMMARY | 2024-10-06 11:43 | XMS_ITS | Clinical Summary ---
Author Organization [facility] Address [address] [place] [address] Care Team Providers Care Afloat Cryptologic Manager Name Role Phone Gwendolyn Roth NP Primary [...] complication, without long-term current use of insulin ([facility]) Dx. E11.65 - Blood sugar check daily 100 Each 11 3 Active blood sugar diagnostic (FREESTYLE TEST) stripsIndicatio ns:Type 2 diabetes mellitus without complication, without long-term current use of insulin ([facility]) Dx. E11.65 - Blood sugar check daily . FREESTYLE LITE Test strips 100 Each 11 3 Active lancetsIndicati ons:Type 2 diabetes mellitus without complication, without long-term current use of insulin ([facility]) Dx. E11.65 - Blood sugar check [...] complication, without long-term current use of insulin ([facility]) Take 1 Tablet by mouth once daily [...] complication, without long-term current use of insulin ([facility]) Take 1 Tablet by mouth 2 (two) times daily before a meal 180 Tablet 1 4 Active metFORMIN (GLUCOPHAGE) 1,000 mg tabletIndicatio ns:Prescription refill,Type 2 diabetes mellitus without complication, without long-term current use of insulin ([facility]) Take 1 Tablet by mouth 2 (two) [...] As per eye examination done 05/22/15 @ [facility].Dr. Adrianna Wilson Pinguecula of both eyes 06/10/2015 Overview (06/10/2015): As per eye examination done 05/22/15 @ [facility].Dr. Adrianna Wilson Presbyopia 06/10/2015 Overview (06/10/2015): As per eye examination done 05/22/15 @ [facility].Dr. Adrianna Wilson Uncontrolled type 2 diabetes mellitus with hyperglycemia ([facility]) 11/30/2014 Overview (11/30/2014): Lab Results Component Value Date HGBA1C 6.8* 11/30/2014 Primary hypertension 01/12/2013 Overview (06/21/2021): [facility] 05/18/16- No pulmonary embolus. Diet controlled currently Hypothyroidism 01/12/2013 Vitamin D deficiency disease 01/12/2013 Immunizations Immunization Administration Dates Next Due Flu, Adjuvant, 65y+ (Fluad) 12/24/2019 Flu, Preservative Free 02/21/2021,2019,03/10/2019,04/02 Hep B, Adult/Adol (PSMDWVK-F-AHSQS/RECOMBIVAX-ADULT) 01/16/2012,08/15/2011,07/16/2011 INFLUENZA, SEASONAL, INJECTABLE 01/29/2016,01/06,03/18/2012 INFLUENZA, SEASONAL, INJECTA BLE, PRESERVATIVE FREE 01/12/2013 MMR (MMR II/Priorix) 06/22/2011,02/05/2011 Moderna COVID-19 Vaccine, re d cap blue label, 12+ Primary Series 08/09/2020,07/08/2020 PNEUMOCOCCAL CONJUGATE PCV 2 0 (Prevnar 20) 02/26/2023 PNEUMOCOCCAL POLYSACCHARIDE PPV23 (Pneumovax 23) 05/07/2012 PPD 01/20/2013 TDAP 06/27/2021,06/12/2011,02/05/2011 ZOSTER VACCINE, [...] 61 09/02/2023 8:51 AM EDT Temperature 36.8 C (98.2 F) 09/02/2023 8:51 AM EDT Respiratory Rate 18 09/02/2023 8:51 AM EDT Oxygen Saturation 98% 09/02/2023 8:51 AM EDT Inhaled Oxygen Concentration - - Weight 74.4 kg (164 lb) 09/10/2023 9:07 AM EDT Height 157.5 cm (5' 2 ) 09/10/2023 9:07 AM EDT Body Mass Index 30 09/10/2023 9:07 AM EDT Plan of Treatment Health Maintenance Due Date Last Done Comments Dental Examination [address] Colonography 2017 Colonoscopy 2017 Fecal DNA 2017 Flexible Sigmoidoscopy 2017 Retinopathy Screening 05/07/2018 05/07/2017 (Managed by Outside Provider), 05/22/2015 Breast Cancer Screening (Mammogram) 04/20/2021 04/20/2019, 04/20/2019, 06/10/2018, Additional history exists Colorectal Cancer Screening 09/11/2023 FIT/gFOBT 09/11/2023 09/10/2022 Hemoglobin A1c 12/03/2023 09/02/2023, 12/08/2022, 09/04/2022, Additional history exists Diabetes Foot Exam 02/27/2024 02/26/2023, 0 11/21/2022, 10/25/2022, Additional history exists Alcohol and Drug Screen 2024 05/29/19 24, 09/04/2022, 06/21/2021, Additional history exists Depression Annual Screen 2024 024, 05/29/2023, 10/09/2017 Pap Smear 05/24/2024 05/24/2021, 11/30/2014 Annual Wellness (Adult): Indicated (All Coverage) 09/01/2024 09/02/2023, 11/21/2022, 11/22/2020, Additional history exists Anxiety Screening 09/01/2024 09/02/2023 Lipid Screening 09/01/2024 09/02/2023, 04/24, 11/29/2020, Additional history exists Serum Creatinine 09/01/2024 09/02/2023, , 05/09/2022, Additional history exists TSH Monitoring 09/01/2024 09/02/2023, 08/2022, 09/04/2022, Additional history exists Urine Albumin Creatinine Rat io Screening 09/01/2024 09/02/2023, 05/09/2022, 11/29/2020, Additional history exists Tobacco Screening 10/27/2024 10/28/2023, , 09/02/2023, Additional history exists Imm-Influenza (#1) 2024 12/24/2023, 1 04/22/2021, 02/21/2021, Additional history exists Cervical Cancer Screening 05/24/2026 Pap + HPV 05/24/2026 05/24/2021 Imm-DTaP/Tdap/Td (4 - Td or Tdap) 06/28/2031 06/27/2021, 06/12/2011, 02/05/2011 Imm-Hepatitis B Completed 01/16/2012, 07/23, 07/16/2011 HIV Screening Completed 11/29/2020 Hepatitis C Screening Completed 11/29/2020, 015 Imm-Pneumococcal 50+ Completed 02/26/2023, 05/07/19 13 Imm-Zoster, Recombinant Completed 02/26/2023, 11/21 Thg-MYULD-74 Completed 12/24/2023, 12/22, 03/13/2021, Additional history exists Cervical Ablation/Cold-Knife Conization Discontinued Cervical Cryotherapy Discontinued Colposcopy Discontinued Endometrial Biopsy Discontinued Excision/Leep Discontinued HPV Genotyping Discontinued Vaginal Pap Discontinued Vulvoscopy Discontinued Procedures Procedure Name Priority Date/Time Associated Diagnosis Comments THYROID CASCADING REFLEX PANEL Routine 09/02/2023 9:38 AM EDT Uncontrolled type 2 diabetes mellitus with hyperglycemia (HCC-CMS) COMPREHENSIVE METABOLIC PANEL Routine 09/02/2023 9:38 AM EDT Uncontrolled type 2 diabetes mellitus with hyperglycemia (HCC-CMS) LIPID PANEL Routine 09/02/2023 9:38 AM EDT Uncontrolled type 2 diabetes mellitus with hyperglycemia (HCC-CMS) MICROALBUMIN/CREATININE RATIO, URINE, RANDOM Routine 09/02/2023 9:38 AM EDT Uncontrolled type 2 diabetes mellitus with hyperglycemia (HCC-CMS) HEMOGLOBIN GLYCOSYLATED A1C Routine 09/02/2023 9:38 AM EDT Uncontrolled type 2 diabetes mellitus with hyperglycemia ([facility]) FECAL GLOBIN BY IMMUNOCHEMISTRY (FIT) Routine [...] EDT) TSH 1.36 0.40 - 4.50 mIU/L [facility] Comment: Reference Range > or = 20 Years 0.40-4.50 Ranges First trimester 0.26-2.66 Second trimester 0.55-2.73 Third trimester 0.43-2.91 Blood Blood / Unknown 09/02/2023 9 :38 AM EDT 09/02/2023 9:38 AM EDT Gwendolyn Roth NP LAB - BLOOD DRAW Edited Resu lt - Final Qpyn [address] [place] [id number], [facility] [address] [place] [phone] * MICROALBUMIN/CREATININE RATIO, URINE, RANDOM (09/02/2023 9:38 AM EDT) CREATININE, RANDOM URINE 79 20 - 275 mg/dL [facility] MICROALBUMIN 0.2 mg/dL [employer] [facility] [employer] Comment: Reference Range Not established MICROALBUMIN/CREA TININE RATIO, RANDOM URINE 3 <30 mg/g creat [facility] Comment: The ADA defines abnormalities in albumin excretion as follows: Albuminuria Category Result (mg/g creatinine) Normal to Mildly increased <30 Moderately increased 30-299 Severely increased > OR = 300 The ADA recommends that at least two of three specimens collected within a 3-6 month period be abnormal before considering a patient to be within a diagnostic category. Urine Urine specimen / Unknown 09/02/2023 9:38 AM EDT 09/02/2023 9:38 AM EDT us Gwendolyn Roth NP LAB URINE AMBULATORY Final R esult Performing Organization Address [facility] Co de Phone Number [facility] [address] [address], [facility] [address] [address] * (ABNORMAL) HEMOGLOBIN GLYCOSYLATED A1C (09/02/2023 9:38 AM EDT) HEMOGLOBIN A1C 9.7(H) <5.7 % of total Hgb Twelve [facility] Comment: For someone without known diabetes, a [...] A1c for diagnosis of diabetes for children. Blood Blood / Unknown 09/02/2023 9 :38 AM EDT 09/02/2023 9:38 AM EDT us Gwendolyn Roth NP LAB - BLOOD DRAW Edited Resu lt - Final Performing Organization Address [facility]/ZIP Co de Phone Number [facility] [address] [address], [employer] [address] [address] * (ABNORMAL) LIPID PANEL (09/02/2023 9:38 AM EDT) CHOLESTEROL, TOTAL 145 <200 mg/dL Twelve [facility] HDL CHOLESTEROL 49(L) > OR = 50 mg/dL [facility] TRIGLYCERIDES 163(H) <150 mg/dL [facility] LDL-CHOLESTEROL 72 99 mg/dL (calc) [facility] Comment: Reference range: <100 Desirable range <100 mg/dL for primary prevention; <70 mg/dL for patients with CHD or diabetic patients with > or = 2 CHD risk factors. LDL-C is now calculated using the Soniya calculation, which is a validated novel method providing better accuracy than the Friedewald equation in the estimation of LDL-C. Gabriele SS et al. CURTIS. 2013;310(82): 1776-4658 (http://education.K[employer] Network/faq/VVB365) CHOL/HDLC RATIO 3.0 <5.0 (calc) [facility] NON-HDL CHOLESTEROL 96 <130 mg/dL (calc) [facility] Comment: For patients with diabetes plus 1 major ASCVD risk factor, treating to a non-HDL-C goal of <100 mg/dL (LDL-C of <70 mg/dL) is considered a therapeutic option. Blood Blood / Unknown 09/02/2023 9 :38 AM EDT 09/02/2023 9:38 AM EDT us Gwendolyn Roth NP LAB - BLOOD DRAW Final Resul t Qpyn [address] [place] [id number], [facility] [address] [place] [phone] * (ABNORMAL) COMPREHENSIVE METABOLIC PANEL (09/02/2023 9:38 AM EDT) GLUCOSE 135(H) 65 - 99 mg/dL [facility] Comment: Fasting reference interval For someone without known diabetes, a glucose value >125 mg/dL indicates that they may have diabetes and this should be confirmed with a follow-up test. UREA NITROGEN (BUN) 10 7 - 25 mg/dL [facility] CREATININE (blood) 0.67 0.50 - 1.03 mg/dL [facility] EGFR 106 > OR = 60 mL/min/1. 73m2 [facility] BUN/CREATININE RATIO SEE NOTE: [facility] Comment: Not Reported: BUN and Creatinine are within reference range. SODIUM 141 135 - 146 mmol/L [facility] POTASSIUM 4.7 3.5 - 5.3 mmol/L [facility] CHLORIDE 106 98 - 110 mmol/L [facility] CARBON DIOXIDE 26 20 - 32 mmol/L [facility] CALCIUM 9.6 8.6 - 10.4 mg/dL [facility] PROTEIN, TOTAL 7.2 6.1 - 8.1 g/dL [facility] ALBUMIN 4.1 3.6 - 5.1 g/dL [facility] GLOBULIN 3.1 1.9 - 3.7 g/dL (calc) [facility] ALBUMIN/GLOBULI N RATIO 1.3 1.0 - 2.5 (calc) [facility] BILIRUBIN, TOTAL 0.6 0.2 - 1.2 mg/dL [facility] ALKALINE PHOSPHATASE 68 37 - 153 U/L [facility] AST 30 10 - 35 U/L [facility] ALT 40(H) 6 - 29 U/L [facility] Blood Blood / Unknown 09/02/2023 9 :38 AM EDT 09/02/2023 9:38 AM EDT Gwendolyn Roth CHINESE TEACHER LAB - BLOOD DRAW Edited Resu lt - Final Performing Organization Address City/[facility] Co de Phone Number [facility] [address] [address], [facility] [address] [phone] * FIT DIAGNOSITC ONLY (09/10/2022 8:00 PM EDT) FECAL GLOBIN BY IMMUNOCHEMISTRY See Note [facility] Comment: FECAL GLOBIN BY IMMUNOCHEMISTRY Micro Number: [id number] Test Status: Final Specimen Source: Insure (tm) fobt test card Specimen Quality: Adequate Fecal Globin: Not Detected Stool Stool specimen / Unknown 09/10/2022 8:00 PM EDT 09/12/2022 3:24 AM EDT Jessica Tinsley CAREER COORDINATOR-C LAB BODY FLUIDS AND STOOLS A MBULATORY Final Result Performing Organization Address City/[facility]/ZIP Co de Phone Number [employer] [facility] [address] [address], [facility] [address] [phone] * THIN PREP IMAGE PAP + HPV RNA E6/E7 W/RFLX HPV 16, 18/45 (05/24/2021 10:13 AM EST) CLINICAL INFORMATION See Note [facility] Comment:Routine exam LMP See Note [facility] Comment:[id number] PREV. PAP See Note [facility] Comment:NONE GIVEN PREV. BX See Note [facility] Comment:NONE GIVEN SOURCE See Note [facility] Comment:Cervix STATEMENT OF ADEQUACY See Note [facility] Comment: Satisfactory for evaluation. Endocervical/transformation zone component present. INTERPRETATION/RESU LT See Note [facility] Comment:Negative for intraep ithelial lesion or malignancy. COMMENT See Note [facility] Comment: This Pap test has been evaluated with computer assisted technology. EDGER OPERATOR See Note [facility] [employer] [facility] Comment: [place], CT(ASCP) CT screening location: [address] [address] COMMENT [facility] HPV MRNA E6/E7 Not Detected Not Detected [facility] Comment: Methodology: Accounting Lecturer-Mediated Amplification This assay detects E6/E7 viral messenger RNA (mRNA) from 14 high-risk HPV types (16,18,31,33,35,39,45,51,52,56,58,59,66,68). The analytical performance characteristics of this assay have been determined by [employer]. The modifications have not been cleared or approved by the FDA. This assay has been validated pursuant to the CLIA regulations and is used for clinical purposes. For additional information, please refer to http://education.LEYIO.DocDep/faq/KLF888r5 (This link if provided for information/ educational purposes only.) Cervix Cervix uteri structure / Unknown 05/24/2021 10:13 AM EST 05/25/2021 3:22 AM EST Narrative [employer] [facility] - 05/28/2021 9:42 AM EST EXPLANATORY NOTE: [...] along with historic and current clinical information. Jessica Rolandadia [facility]- LAB - PATHOLOGY AND CYTOLOGY AMBULATORY Final Result Performing Organization Address [facility]/ZIP Co de Phone Number [facility] [address] [address], [facility] [address] [address] * HEPATITIS C AB W/RFLX HCV RNA, QT, RT PCR (11/29/2020 10:01 AM EDT) HEPATITIS C ANTIBODY NON-REACT JUVENCIO NON-REACT JUVENCIO [facility] SIGNAL TO CUT-OFF 0.03 <1.00 [facility] Comment: HCV antibody was non-reactive. There is no laboratory evidence of HCV infection. In most cases, no further action is required. However, if recent HCV exposure is suspected, a test for HCV RNA (test code 09028) is suggested. For additional information please refer to http://education.[employer]/faq/YAB33k5 (This link is being provided for informational/ educational purposes only.) Blood Blood / Unknown 11/29/2020 1 0:01 AM EDT 11/29/2020 10:02 AM EDT Narrative [facility] - 12/01/2020 8:45 PM EDT FASTING:YES Jessica Rolandadia [facility]-C LAB - BLOOD DRAW Edited Resu lt - Final Performing Organization Address City/[facility]/ZIP Co de Phone Number [facility] [address] [address], [facility] [address] [address] * HIV 1/2 AG & AB W/RFLX (4TH GEN) (11/29/2020 10:01 AM EDT) HIV AG/AB, 4TH GEN NON-REAC TIVE NON-REAC TIVE [facility] Comment: HIV-1 antigen and HIV-1/HIV-2 antibodies were not detected. There is no laboratory evidence of HIV infection. PLEASE NOTE: This information has been disclosed to you from records whose confidentiality may be protected by state law. If your state requires such protection, then the state law prohibits you from making any further disclosure of the information without the specific written consent of the person to whom it pertains, or as otherwise permitted by law. A general authorization for the release of medical or other information is NOT sufficient for this purpose. For additional information please refer to http://education.[employer]/faq/NIR001 (This link is being provided for informational/ educational purposes only.) The performance of this assay has not been clinically validated in patients less than 2 years old. Blood Blood / Unknown 11/29/2020 1 0:01 AM EDT 11/29/2020 10:02 AM EDT Narrative [employer] [facility] [facility] - 12/01/2020 8:45 PM EDT FASTING:YES Jessica QUEENP-C LAB - BLOOD DRAW Edited Resu lt - Final [facility] [address] [address], [facility] [address] [address] * MAMMOGRAM BI-RADS, ABSTRACTED (04/20/2019 1:59 PM EST) BI-RADS ASSESSMENT 1 - Negative: means that there is no significant or noticeable abnormality to report. BI-RADS FOLLOW-UP 1 - Routine Screening Anatomical Region Laterality Modality Other Impressions 04/20/2019 1:59 PM EST As per [employer] no evidence of malignancy. Provider Aleksandr HANKSG MAMMO Final Result from Last 3 Months or Most Recently Relevant to Health Maintenance Insurance [place] D[place] [facility] INSURANCE HE[employer] [place] [id number] Care Teams Afloat Cryptologic Manager Relationship Specialty Start Date End Date Gwendolyn Roth NP [address] [place] [address] PCP - General Internal Medicine 04/18/23
== END 2024-10-06 11:39 | disposition home or self-care (01) ==
LOC: HO.HMCFM 10:54
PROVIDERS: PCP Physician Assistant; Visit Provider Physician Assistant
DX: I10 Essential (primary) hypertension (principal); M25.50 Pain in unspecified joint; R79.89 Other specified abnormal findings of blood chemistry

== ENCOUNTER → 2024-10-06 10:54 | Outpatient (BNVA) | payer OTHER, SELFPAY | PROVIDERS: PCP Physician Assistant; Visit Provider Physician Assistant | DX: M25.512 Pain in left shoulder (principal); M25.511 Pain in right shoulder; M25.522 Pain in left elbow; M25.521 Pain in right elbow; I10 Essential (primary) hypertension; R79.89 Other specified abnormal findings of blood chemistry | CPT/HCPCS: 99212 ==

== ENCOUNTER 2024-10-14 16:33 | Outpatient (AMB) | payer OTHER, SELFPAY ==
--- NOTE | 2024-10-14 16:18 | MHC.PC.OV ---
Intake Visit Reasons: IC celecoxib 200 mg capsule(Celebrex) review Intake Note: Follow up celebrex Allergies No Known Allergies Allergy (Verified 10/14/24 16:19) Medication List - Last Reconciled 10/14/24 by Carrie Govea PA-C allopurinol 300 mg PO DAILY diclofenac sodium 1% (Voltaren Arthritis Pain) 4 grams topical QID PRN fenofibrate 160 mg PO DAILY losartan 50 mg PO DAILY rosuvastatin (Crestor) 20 mg PO DAILY Tobacco use date assessed: 10/14/24 Dental Screening Dental Screen Date: 06/02/24 HPI IC celecoxib 200 mg capsule(Celebrex) review HPI Details Patient is a 54-year-old male who presents today for a follow up. Mobile Game Day Ethics Officer is used today CV: States that his blood pressures have been normal at home with the increased dose of the losartan. He is tolerating the 50 mg without difficulty. He tells me he never stopped the Crestor because when he started to treat his blood pressure the joint pains resolved. He states that he is not really having any pain now. He is on Crestor and fenofibrate. Musculoskeletal: He still has bilateral shoulder pain but it is not as bad. Has follow up arranged with Orthopedics GI: Last LFTs were elevated. No known history of this per patient. He is scheduled for an ultrasound and GI Heme/Onc: Has followed with Heme-Onc and again waiting for the liver ultrasound. 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 Sky Meek, Erika Chávez, Jessee Joel and colleagues, with an educational jessica from [employer]. Physical exam (Primary Care) Tobacco/Smoking Status: Tobacco use Status Tobacco use date assessed 10/14/24 10/14/24 16:28 Patient Tobacco Use Status Never used Tobacco 10/14/24 16:25 e-Cigarette/Vaping Use Never Used 10/14/24 16:25 Thrive Assessment: Date of Thrive Assessment Date Thrive assessed 06/02/24 10/14/24 16:25 Telehealth Telehealth Telehealth Platform: Telephone Location of provider rendering services: practice address Location of patient: other (see) Patient Identification confirmed using: Name, : Yes Telehealth method: voice only Patient verbally consented to treatment: Yes Patient verbally consented to billing insurance company: Yes Patient informed of any privacy concerns related to visit: Yes Minutes spent on Phone/Video with Pt.: 15 Coding Level of Care Code Tele Est Pt Level 3 (37230) Diagnoses Primary hypertension I10 Hypertension type: primary hypertension Dyslipidemia E78.5 Elevated LFTs R79.89 Assessment & Plan Assessment & Plan (1) HTN (hypertension): Code(s): I10 - Essential (primary) hypertension Category: Medical Qualifiers: Hypertension type: primary hypertension Qualified Code(s): I10 - Essential (primary) hypertension Plan: States blood pressures have been better at home since being on the higher dose of the losartan (2) Dyslipidemia: Code(s): E78.5 - Hyperlipidemia, unspecified Category: Medical Plan: He never discontinued the Crestor because he states treating his blood pressure seemed to resolve the joint pains. He did not order picker the Celebrex and does not want to try any medication right now. I have resume the Crestor and fenofibrate and we will recheck labs (3) Elevated LFTs: Code(s): R79.89 - Other specified abnormal findings of blood chemistry Category: Medical Plan: As above. Ultrasound scheduled next week. Medications: New rosuvastatin (Crestor) 20 mg PO DAILY 90 tabs 0RF Changed From diclofenac sodium 1% (Voltaren Arthritis Pain) 4 grams topical QID PRN To diclofenac sodium 1% (Voltaren Arthritis Pain) 4 grams topical QID 100 grams 0RF Discontinued celecoxib (Celebrex) Discontinued Reason: Doctor's Order 200 mg PO BID 60 caps 2RF
== END 2024-10-14 17:00 | disposition home or self-care (01) ==
LOC: HO.HMCFM 16:33
PROVIDERS: PCP Physician Assistant; Visit Provider Physician Assistant
DX: I10 Essential (primary) hypertension (principal); E78.5 Hyperlipidemia, unspecified; R79.89 Other specified abnormal findings of blood chemistry

== ENCOUNTER 2024-10-19 09:54 | Outpatient (AMB) | payer OTHER, SELFPAY ==
--- NOTE | 2024-10-19 09:56 | A.OFFVIS_ITS ---
Vital Signs 10/19/24 09:57 Height 5 ft 11 in Weight 175 lb BMI 24.4 BP 156/88 H Blood Pressure Location Rt brachial Position Sitting Pulse 64 Pulse Source Pulse Oximeter Pulse Oximetry (%) 99 Oxygen Delivery Method Room Air Intake Visit Reasons: Colonoscopy Screening Intake Note: New pt for initial colo screening. PCP via [facility]. CC: Pt denies any GI sx or concerns. No FMHx noted. Faa Certified Powerplant Mechanic Required: No Accompanied by: Self / Same As Patient Allergies No Known Allergies Allergy (Verified 10/19/24 09:57) HPI HPI Colonoscopy Screening: Details: 54 year old? male with past medical history of pancytopenia, anemia, polyarthralgia, dyslipidemia, hypertension is here today for pre colonoscopy screening.? Patient was sent to us by his PCP.? This is his first colonoscopy screening.? Patient denies any gastrointestinal symptoms in the past or at present.? Denies any personal or family history of gastrointestinal disease, colon polyps, or CRC.? Patient never had anesthesia in the past. Negative for history of sleep apnea.? Denies any history of cardiac, renal, pulmonary, or hepatic disease.?? No history of infectious? diseases like hepatitis A, B, C, HIV or tuberculosis.? 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 [employer] Current occupational exposures/hazards: Yes (Works around chemicals) Cognitive needs: No Hearing needs: No Vision needs: Yes (glasses) Review of Systems Const Denies weight gain and Denies weight loss ENT Reports no additional complaints, Denies dysphagia and Denies odynophagia Card Reports no additional complaints Resp Reports no additional complaints GI Denies abdominal pain, Denies belching, Denies melena, Denies bloating, Denies change in bowel habits, Denies dysphagia, Denies excessive flatus, Denies dyspepsia, Denies heartburn, Denies diarrhea, Denies loose stools, Denies nausea, Denies odynophagia and Denies vomiting Reports no additional complaints Musc Reports no additional complaints Neuro Reports no additional complaints Psych Reports no additional complaints Endo Reports no additional complaints Physical Exam Vital Signs: Last Vital Signs Pulse 64 10/19/24 09:57 BP 156/88 H 10/19/24 09:57 Pulse Ox 99 10/19/24 09:57 Oxygen Delivery Method Room Air 10/19/24 09:57 BMI result Body Mass Index 24.4 Const General: healthy appearing, no acute distress and well developed Nutritional Appearance: well nourished Orientation/consciousness: patient oriented x3 Resp Effort & Inspection: normal respiratory effort, able to speak in complete sentences, no tracheal deviation and symmetric chest movement Auscultation: clear to auscultation bilaterally Cardio Rate: regular rate GI Inspection: Yes normal to inspection and No distended Palpation (GI): Soft to palpation, not firm, nontender and No hepatosplenomegaly present Auscultation: normal bowel sounds General: Yes no CVA tenderness Back/Spine/Pelvis Back: no CVA tenderness Skin General skin exam: elasticity normal, turgor normal and dry skin Neuro General: patient oriented x3 Psych Appearance: grossly normal Mental Status: mental status grossly normal Assessment & Plan Assessment & Plan (1) Screen for colon cancer: Code(s): Z12.11 - Encounter for screening for malignant neoplasm of colon Plan Patient denies any GI, cardiac or respiratory symptoms.? Patient never had anesthesia in the past.? Denies any history of sleep apnea.? No history infectious diseases in the past or present.? Not on any anticoagulation therapy.? No family or personal history of colon cancer or polyps.? Patient denies melena, hematochezia, unintentional weight loss or ribbon like stools.? Discussed at length the pre-procedure,? prep, diet & medications as well as what to expect prior, during and after the procedure.?? Stressed the importance of good bowel prep.? Recommended the use of Vaseline or Calmoseptine OTC & baby wipes with bowel movements to promote comfort.? ?Patient verbalizes understanding and agrees to plan of care.? He was given the opportunity to ask questions and all questions answered.? We will see him after the procedure.? Medications: New bisacodyl (Dulcolax (bisacodyl)) take 4 tabs at noon the day before your colonoscopy 20 mg (4 x 5 mg) PO ONCE 4 tabs 0RF constipation 1 day Z12.11 - Encounter for screening for malignant neoplasm of colon polyethylene glycol 3350 (Miralax) As directed by gastroenterology department at [facility] 238 grams PO ONCE 238 grams 0RF Z12.11 - Encounter for screening for malignant neoplasm of colon Coding Level of Care Code New Pt Level 3 (26100) Diagnoses Screen for colon cancer Z12.11 Time Spent (min) 40 Comment 30 minutes spent with patient and additional 10 minutes spent reviewing his records
[2024-10-19 09:57] VITALS: BP 156/88; PULSE 64; O2SAT 99; BMI 24.4
--- OUTSIDE RECORDS SUMMARY | 2024-10-19 10:32 | XMS_ITS | Clinical Summary ---
Author Organization [facility] Address [address] [place] [address] Phone Care Team Providers Care Truck Switcher Name Role Phone Gwendolyn Roth Primary Care Provider [phone] Medications polyethylene glycol (Golytely) 236-22.74-6.74 -5.86 gram [...] Team Description 07/20/2024 Telephone Gastroenterology - [address] [address] Gene Rutherford MD Special Procedure [...] Influencers of Health Screening 02/15/2024 Depression Screening 2024 Diabetes: Annual Urine Albumin-Creatinine Ratio (uACR) 09/01/2024 [...] Procedure Name Priority Date/Time Associated Diagnosis Comments [facility] SCREENING DIGITAL Routine 04/20/2019 1:37 PM EST Encounter for screening mammogram for malignant neoplasm of breast from Last 3 Months or Most Recently Relevant to Health Maintenance Results * ROC[facility]O SCREENING DIGITAL (04/20/2019 1:37 PM EST) Anatomical Region Laterality Modality Mammography 04/20/2019 10:2 2 AM EST Narrative 04/20/2019 1:37 PM EST [facility] Diagnostic Imaging Department [address] [place] [address] Patient: GARCIA GIBBS Pascual /Age/Sex: 1973 - 46 - F Unit#: [id number] Location/Status: [facility] Mnemonic/Ordering Site: [facility] Ordering Physician: MARCO ANTONIO LAIRD [facility] Screening Digital - 04/20/19 - 1045 History: Bilateral breast cancer screening. Technique: Bilateral digital mammography. Conventional CC and MLO projections with tomosynthesis MLO views and computer aided detection. Findings: Comparison: Radiology and Imaging incorporated [facility] 06/10/2018 and 04/18/2017. Breast tissue is mostly fatty replaced (category a density) bilaterally (as calculated by DogVacaypara software). There are benign calcifications bilaterally. There is no suspicious group of microcalcification, no suspicious mass, architectural distortion or suspicious asymmetry. Impression: No evidence of malignancy. BIRADS category 2, benign findings, 3342F 84975, 81614 Note: Patient information entered into a reminder system with a target due date for the next mammogram; PQRI II 7087F Dictating Physician: JAMES COTO MD Electronically Signed by: JAMES COTO MD Dic Date/Time: 04/20/19 1336 Sign date/Time: 04/20/19 133 Procedure Note James Coto - 03/13/2022 [facility] Diagnostic Imaging Department [address] [place] [id number] Patient: BERNIEGARCIA Garner /Age/Sex: 1973 - 46 - F Unit#: [id number] Location/Status: [facility] CLI Mnemonic/Ordering Site: [facility] Ordering Physician: MARCO ANTONIO LAIRD [facility] Screening Digital - 04/20/19 - 1045 History: Bilateral breast cancer screening. Technique: Bilateral digital mammography. Conventional CC and MLOprojections with tomosynthesis MLO views and computer aided detection. Findings: Comparison: Radiology and Imaging incorporated [facility] 06/10/2018 and 04/18/2017. Breast tissue is mostly fatty replaced (category a density) bilaterally(as calculated by TISSUELABa software). There are benigncalcifications bilaterally. There is no suspicious group of microcalcification, nosuspicious mass, architectural distortion or suspicious asymmetry. Impression: No evidence of malignancy. BIRADS category 2, benign findings, 3342F 14449, 35923 Note: Patient information entered into a reminder system with a targetdue date for the next mammogram; PQRI II 7025F Dictating Physician: JAMES COTO MD Electronically Signed by: JAMES COTO MD Dic Date/Time: 04/20/19 1336 Sign date/Time: 04/20/19 1337 [place] DEAF/HARD OF HEARING SPECIALIST IMG BI PROCEDURES Final Result from Last 3 Months or Most Recently Relevant to Health Maintenance Insurance [employer] Care Teams Truck Switcher Relationship Specialty Start Date End Date Gwendolyn Roth PCP - General 10/29/23
--- OUTSIDE RECORDS SUMMARY | 2024-10-19 10:32 | XMS_ITS | Clinical Summary ---
Author Organization [facility] Address [address] [place] [address] Care Team Providers Care Security Alarm Installer Name Role Phone Gwendolyn Roth NP Primary [...] complication, without long-term current use of insulin ([facility]) Dx. E11.65 - Blood sugar check daily 100 Each 11 3 Active blood sugar diagnostic (FREESTYLE TEST) stripsIndicatio ns:Type 2 diabetes mellitus without complication, without long-term current use of insulin ([facility]) Dx. E11.65 - Blood sugar check daily . FREESTYLE LITE Test strips 100 Each 11 3 Active lancetsIndicati ons:Type 2 diabetes mellitus without complication, without long-term current use of insulin ([facility]) Dx. E11.65 - Blood sugar check daily [...] complication, without long-term current use of insulin ([facility]) Take 1 Tablet by mouth once daily [...] complication, without long-term current use of insulin ([facility]) Take 1 Tablet by mouth 2 (two) times daily before a meal 180 Tablet 1 4 Active metFORMIN (GLUCOPHAGE) 1,000 mg tabletIndicatio ns:Prescription refill,Type 2 diabetes mellitus without complication, without long-term current use of insulin ([facility]) Take 1 Tablet by mouth 2 (two) [...] As per eye examination done 05/22/15 @ [facility].Dr. Adrianna Wilson Pinguecula of both eyes 06/10/2015 Overview (06/10/2015): As per eye examination done 05/22/15 @ [facility].Dr. Adrianna Wilson Presbyopia 06/10/2015 Overview (06/10/2015): As per eye examination done 05/22/15 @ [facility].Dr. Adrianna Wilson Uncontrolled type 2 diabetes mellitus with hyperglycemia ([facility]) 11/30/2014 Overview (11/30/2014): Lab Results Component Value Date HGBA1C 6.8* 11/30/2014 Primary hypertension 01/12/2013 Overview (06/21/2021): [facility] 05/18/16- No pulmonary embolus. Diet controlled currently Hypothyroidism 01/12/2013 Vitamin D deficiency disease 01/12/2013 Immunizations Immunization Administration Dates Next Due Flu, Adjuvant, 65y+ (Fluad) 12/24/2019 Flu, Preservative Free 02/21/2021,2019,03/10/2019,04/02 Hep B, Adult/Adol ([id number]/RECOMBIVAX-ADULT) 01/16/2012,08/15/2011,07/16/2011 INFLUENZA, SEASONAL, INJECTABLE 01/29/2016,01/06,03/18/2012 INFLUENZA, SEASONAL, [...] 05/07/19 13 Imm-Zoster, Recombinant Completed 02/26/2023, 11/21 [id number] Completed 12/24/2023, 12/22, 03/13/2021, Additional history exists [...] Uncontrolled type 2 diabetes mellitus with hyperglycemia ([facility]) FECAL GLOBIN BY IMMUNOCHEMISTRY (FIT) Routine 09/10/2022 [...] EDT) TSH 1.36 0.40 - 4.50 mIU/L [facility] Comment: Reference Range > or = 20 Years 0.40-4.50 Ranges First trimester 0.26-2.66 Second trimester 0.55-2.73 Third trimester 0.43-2.91 Blood Blood / Unknown 09/02/2023 9 :38 AM EDT 09/02/2023 9:38 AM EDT Gwendolyn Roth NP LAB - BLOOD DRAW Edited Resu lt - Final [employer] [address] [id number], [facility] [address] [place] [phone] * MICROALBUMIN/CREATININE RATIO, URINE, RANDOM (09/02/2023 9:38 AM EDT) CREATININE, RANDOM URINE 79 20 - 275 mg/dL [facility] MICROALBUMIN 0.2 mg/dL [facility] Comment: Reference Range Not established MICROALBUMIN/CREA TININE RATIO, RANDOM URINE 3 <30 mg/g creat [facility] Comment: The ADA defines abnormalities in albumin [...] AMBULATORY Final R esult Performing Organization Address [facility] Co de Phone Number [facility] [address] [address], [employer] [address] [address] * (ABNORMAL) HEMOGLOBIN GLYCOSYLATED A1C (09/02/2023 9:38 AM EDT) HEMOGLOBIN A1C 9.7(H) <5.7 % of total Hgb [facility] Comment: For someone without known diabetes, a [...] Resu lt - Final Performing Organization Address [facility]/ZIP Co de Phone Number [facility] [address] [address], [employer] [address] [address] * (ABNORMAL) LIPID PANEL (09/02/2023 9:38 AM EDT) CHOLESTEROL, TOTAL 145 <200 mg/dL [employer] HDL CHOLESTEROL 49(L) > OR = 50 mg/dL [facility] TRIGLYCERIDES 163(H) <150 mg/dL [facility] LDL-CHOLESTEROL 72 99 mg/dL (calc) [facility] Comment: Reference range: <100 Desirable range <100 mg/dL for primary prevention; <70 mg/dL for patients with CHD or diabetic patients with > or = 2 CHD risk factors. LDL-C is now calculated using the Soniya calculation, which is a validated novel method providing better accuracy than the Friedewald equation in the estimation of LDL-C. Gabriele SS et al. CURTIS. 2013;310(07): 2607-2536 (http://education.Conexus-IT/faq/ZOW274) CHOL/HDLC RATIO 3.0 <5.0 (calc) [facility] NON-HDL CHOLESTEROL 96 <130 mg/dL (calc) [facility] Comment: For patients with diabetes plus 1 major ASCVD risk factor, treating to a non-HDL-C goal of <100 mg/dL (LDL-C of <70 mg/dL) is considered a therapeutic option. Blood Blood / Unknown 09/02/2023 9 :38 AM EDT 09/02/2023 9:38 AM EDT us Gwendolyn Roth NP LAB - BLOOD DRAW Final Resul t [employer] [facility] [employer] [address] [address], [facility] [address] [place] [phone] * (ABNORMAL) COMPREHENSIVE METABOLIC PANEL (09/02/2023 9:38 AM EDT) GLUCOSE 135(H) 65 - 99 mg/dL [facility] Comment: Fasting reference interval For someone without known diabetes, a glucose value >125 mg/dL indicates that they may have diabetes and this should be confirmed with a follow-up test. UREA NITROGEN (BUN) 10 7 - 25 mg/dL [facility] CREATININE (blood) 0.67 0.50 - 1.03 mg/dL [facility] EGFR 106 > OR = 60 mL/min/1. 73m2 [facility] BUN/CREATININE RATIO SEE NOTE: [facility] Comment: Not Reported: BUN and Creatinine are within reference range. SODIUM 141 135 - 146 mmol/L [facility] POTASSIUM 4.7 3.5 - 5.3 mmol/L [facility] CHLORIDE 106 98 - 110 mmol/L [facility] CARBON DIOXIDE 26 20 - 32 mmol/L [facility] CALCIUM 9.6 8.6 - 10.4 mg/dL [facility] PROTEIN, TOTAL 7.2 6.1 - 8.1 g/dL [facility] ALBUMIN 4.1 3.6 - 5.1 g/dL [facility] GLOBULIN 3.1 1.9 - 3.7 g/dL (calc) [facility] ALBUMIN/GLOBULI N RATIO 1.3 1.0 - 2.5 (calc) [facility] BILIRUBIN, TOTAL 0.6 0.2 - 1.2 mg/dL [facility] ALKALINE PHOSPHATASE 68 37 - 153 U/L [facility] AST 30 10 - 35 U/L [facility] ALT 40(H) 6 - 29 U/L [facility] Blood Blood / Unknown 09/02/2023 9 :38 AM EDT 09/02/2023 9:38 AM EDT Gwendolyn Roth QA TESTER LAB - BLOOD DRAW Edited Resu lt - Final Performing Organization Address City/[facility] Co de Phone Number [facility] [address] [address], [facility] [address] [address] * FIT DIAGNOSITC ONLY (09/10/2022 8:00 PM EDT) FECAL GLOBIN BY IMMUNOCHEMISTRY See Note [facility] Comment: FECAL GLOBIN BY IMMUNOCHEMISTRY Micro Number: [id number] Test Status: Final Specimen Source: Insure (tm) fobt test card Specimen Quality: Adequate Fecal Globin: Not Detected Stool Stool specimen / Unknown 09/10/2022 8:00 PM EDT 09/12/2022 3:24 AM EDT Jessica Tinsley OVER SHORT AND DAMAGE CLERK-C LAB BODY FLUIDS AND STOOLS A MBULATORY Final Result Performing Organization Address City/[facility]/ZIP Co de Phone Number [facility] [address] [address], [facility] [address] [address] * THIN PREP IMAGE PAP + HPV RNA E6/E7 W/RFLX HPV 16, 18/45 (05/24/2021 10:13 AM EST) CLINICAL INFORMATION See Note [facility] Comment:Routine exam LMP See Note [facility] Comment:[id number] PREV. PAP See Note [facility] Comment:NONE GIVEN PREV. BX See Note [facility] Comment:NONE GIVEN SOURCE See Note [facility] Comment:Cervix STATEMENT OF ADEQUACY See Note [facility] Comment: Satisfactory for evaluation. Endocervical/transformation zone component present. INTERPRETATION/RESU LT See Note [facility] Comment:Negative for intraep ithelial lesion or malignancy. COMMENT See Note [facility] Comment: This Pap test has been evaluated with computer assisted technology. PNEUDRAULIC SYSTEMS MECHANIC See Note [facility] [employer] [facility] Comment: [place], CT(ASCP) CT screening location: [address] [address] COMMENT [facility] HPV MRNA E6/E7 Not Detected Not Detected [facility] Comment: Methodology: Dog Boarder-Mediated Amplification This assay detects E6/E7 viral messenger RNA (mRNA) from 14 high-risk HPV types (16,18,31,33,35,39,45,51,52,56,58,59,66,68). The analytical performance characteristics of this assay have been determined by [employer] Access [employer]. The modifications have not been cleared or approved by the FDA. This assay has been validated pursuant to the CLIA regulations and is used for clinical purposes. For additional information, please refer to http://education.Panorama9.Dojo/faq/OVJ866m4 (This link if provided for information/ educational purposes only.) Cervix Cervix uteri structure / Unknown 05/24/2021 10:13 AM EST 05/25/2021 3:22 AM EST Narrative [facility] - 05/28/2021 9:42 AM EST EXPLANATORY NOTE: [...] historic and current clinical information. Jessica Rolandadia [facility]- LAB - PATHOLOGY AND CYTOLOGY AMBULATORY Final Result Performing Organization Address [facility]/ZIP Co de Phone Number [facility] [address] [address], [facility] [address] [address] * HEPATITIS C AB W/RFLX HCV RNA, QT, RT PCR (11/29/2020 10:01 AM EDT) HEPATITIS C ANTIBODY NON-REACT JUVENCIO NON-REACT JUVENCIO [facility] SIGNAL TO CUT-OFF 0.03 <1.00 [facility] Comment: HCV antibody was non-reactive. There is no laboratory evidence of HCV infection. In most cases, no further action is required. However, if recent HCV exposure is suspected, a test for HCV RNA (test code 58612) is suggested. For additional information please refer to http://education.Shenandoah Studios/faq/DVN59e9 (This link is being provided for informational/ educational purposes only.) Blood Blood / Unknown 11/29/2020 1 0:01 AM EDT 11/29/2020 10:02 AM EDT Narrative [facility] - 12/01/2020 8:45 PM EDT FASTING:YES Jessica Rolandadia [facility]-C LAB - BLOOD DRAW Edited Resu lt - Final Performing Organization Address City/[facility]/ZIP Co de Phone Number [facility] [address] [address], [facility] [address] [address] * HIV 1/2 AG & AB W/RFLX (4TH GEN) (11/29/2020 10:01 AM EDT) HIV AG/AB, 4TH GEN NON-REAC TIVE NON-REAC TIVE [facility] Comment: HIV-1 antigen and HIV-1/HIV-2 antibodies [...] purpose. For additional information please refer to http://education.[employer]/faq/RIN535 (This link is being provided for informational/ educational purposes only.) The performance of this assay has not been clinically validated in patients less than 2 years old. Blood Blood / Unknown 11/29/2020 1 0:01 AM EDT 11/29/2020 10:02 AM EDT Narrative [facility] - 12/01/2020 8:45 PM EDT FASTING:YES Jessica QUEENP-C LAB - BLOOD DRAW Edited Resu lt - Final [facility] [address] [address], [facility] [address] [address] * MAMMOGRAM BI-RADS, ABSTRACTED (04/20/2019 1:59 PM [...] Most Recently Relevant to Health Maintenance [place] [facility] [facility] INSURANCE HEALTH [place] [address] Care Teams Security Alarm Installer Relationship Specialty Start Date End Date Gwendolyn Roth NP [address] [place] [address] PCP - General Internal Medicine 04/18/23
== END 2024-10-19 10:57 | disposition home or self-care (01) ==
LOC: HO.HGI 09:55
PROVIDERS: PCP Physician Assistant; Visit Provider Nurse Practitioner Family
DX: Z01.818 Encounter for other preprocedural examination (principal); Z12.11 Encounter for screening for malignant neoplasm of colon
CPT/HCPCS: 99203

== ENCOUNTER → 2024-10-19 09:54 | Outpatient (BNVA) | payer OTHER, SELFPAY | PROVIDERS: PCP Physician Assistant; Visit Provider Nurse Practitioner Family | DX: Z12.11 Encounter for screening for malignant neoplasm of colon (principal) | CPT/HCPCS: 99202 ==

== ENCOUNTER 2024-10-28 11:25 | Outpatient (REF) | payer OTHER, SELFPAY | END 2024-10-28 11:26 | disposition home or self-care (01) | LOC: HO.WFDLDS 11:25 | PROVIDERS: PCP Physician Assistant; Visit Provider Physician Assistant | DX: I10 Essential (primary) hypertension (principal); E78.5 Hyperlipidemia, unspecified; R79.89 Other specified abnormal findings of blood chemistry; D61.818 Other pancytopenia; M25.50 Pain in unspecified joint | CPT/HCPCS: 99212 ==

== ENCOUNTER 2024-10-28 11:25 | Outpatient (AMB) | payer OTHER, SELFPAY ==
--- NOTE | 2024-10-28 11:27 | A.OFFPC_ITS ---
Vital Signs 10/28/24 11:36 Height 5 ft 11 in Weight 179 lb 2 oz BMI 25.0 BP 132/76 Blood Pressure Location Rt brachial Position Left Lateral Respiration 12 Pulse 71 Pulse Source Pulse Oximeter Pulse Oximetry (%) 98 Oxygen Delivery Method Room Air Intake Visit Reasons: fu liver ultrasound /labs and med check Intake Note: Follow up labs. Is not taking fenobibrate. Has not received a call about the ultrasound. Chemical Educator Required: Yes Chemical Educator Language: Albanian Chemical Educator Name: Alejandrina [id number] Allergies No Known Allergies Allergy (Verified 10/28/24 11:36) Tobacco use date assessed: 10/28/24 Dental Screening Dental Screen Date: 06/02/24 HPI fu liver ultrasound /labs and med check HPI0 Details Patient is a 54-year-old male who presents today for a follow up. Wan Chemical Educator is used today- ID [id number] CV: Bp today is 132/76. He is tolerating the 50 mg without difficulty. He states that he is tolerating the Crestor and fenofibrate together. States that despite taking both these medications his joint pains are actually getting a lot better in the last 10 days he has not really had any pain. Musculoskeletal: He still has bilateral shoulder pain but it is not as bad. Has follow up arranged with Orthopedics GI: His LFTs have remained elevated. He does not drink alcohol. He has not been sick. Overall he states he does not get much abdominal pain or bloating. He does have pain he states in the right upper abdomen only if he pushes on it. He was supposed to have a liver ultrasound but this had to get rescheduled. He is booked 11/04 for an ultrasound. He did recently see GI but this is only to review colonoscopy prep. No weight loss, nausea, vomiting or diarrhea. Heme/Onc: Has followed with Heme-Onc for pancytopenia and again waiting for the liver ultrasound. 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 [employer] Current occupational exposures/hazards: Yes (Works around chemicals) Cognitive needs: No Hearing needs: No Vision needs: Yes (glasses) Questionnaire Thrive Questionnaire Date Thrive assessed: 06/02/24 I am a: Patient What is your living situation today?: I choose not to answer this question Within the past 12 months, did the food you bought not last and you didn't have the money to get more?: I choose not to answer this question Within the past 12 months, did you worry whether your food would run out before you got money to buy more?: I choose not to answer this question Do you have trouble paying for medicines?: I choose not to answer this question Do you have trouble getting transportation to medical appointments?: I choose not to answer this question Do you have trouble paying your heating and electricity bill?: I choose not to answer this question Do you have trouble taking care of your child, family member or friend?: I choose not to answer this question Do you have trouble with day-to-day activities such as bathing, preparing meals, shopping, managing finances, etc.?: I choose not to answer this question Are you currently unemployed and looking for a job?: I choose not to answer this question Are you interested in more education?: I choose not to answer this question Please select the resources that you would like help with: None Currently or been in a relationship where the following occur: I choose not to answer THRIVE Score: 0 TESS-7 AMB Questionnaire TESS-7 Date TESS - 7 assessed: 06/02/24 Source: Developed by Drs. Sky Meek, Erika Chávez, Jessee Joel and colleagues, with an educational jessica from [employer]!. Physical exam (Primary Care) Vital Signs: Last Vital Signs Pulse 71 10/28/24 11:36 Resp 12 10/28/24 11:36 BP 132/76 10/28/24 11:36 Pulse Ox 98 10/28/24 11:36 Oxygen Delivery Method Room Air 10/28/24 11:36 BMI result Body Mass Index 25.0 Tobacco/Smoking Status: Tobacco use Status Tobacco use date assessed 10/14/24 10/28/24 11:29 Patient Tobacco Use Status Never used Tobacco 10/28/24 11:29 e-Cigarette/Vaping Use Never Used 10/28/24 11:29 Thrive Assessment: Date of Thrive Assessment Date Thrive assessed 06/02/24 10/28/24 11:29 Currently or been in a relationship where the following occur: I choose not to answer Const Orientation/consciousness: patient oriented x3 HENMT Ears: hearing grossly normal bilaterally Neck Thyroid: Thyroid normal Lymphatic: no lymphadenopathy noted Resp Auscultation: clear to auscultation bilaterally Cardio Rate: regular rate Rhythm: regular rhythm Heart sounds: S1 normal heart sound present and S2 normal heart sound present GI Inspection: Yes normal to inspection Palpation (GI): Soft to palpation and Other GI palpation findings present (nontender, no cva tenderness) Auscultation: normoactive bowel sounds Rectal Exam - Male: Yes deferred Skin General skin exam: no rashes or lesions noted Neuro General: patient oriented x3, gait normal and no focal motor deficits Results Reviewed Results Reviewed: Laboratory Tests 06/03/24 07/07/24 08/25/24 07:34 10:06 13:42 Sodium 142 Potassium 4.0 Chloride 109 H Carbon Dioxide 25 Anion Gap 12 BUN 14 Creatinine 1.04 Estimated GFR > 60 Random Glucose 86 Ferritin Total Bilirubin Direct Bilirubin AST ALT Alkaline Phosphatase Total Creatine Kinase Total Protein Albumin Triglycerides Cholesterol LDL Cholesterol, Calc HDL Cholesterol IgG Total 943 IgA Total 267 IgM 75 Rheumatoid Factor 16.0 H LUANN Screen NEGATIVE 09/23/24 11:06 Sodium Potassium Chloride Carbon Dioxide Anion Gap BUN Creatinine Estimated GFR Random Glucose Ferritin 349 H Total Bilirubin 0.7 Direct Bilirubin 0.2 AST 56 H ALT 68 H Alkaline Phosphatase 52 Total Creatine Kinase 140 Total Protein 7.0 Albumin 4.6 Triglycerides 621 H Cholesterol 157 LDL Cholesterol, Calc TNP HDL Cholesterol 31 L IgG Total IgA Total IgM Rheumatoid Factor LUANN Screen Laboratory Tests 06/03/24 07/07/24 08/25/24 07:34 10:06 13:42 WBC 4.5 L 6.0 RBC 4.35 L 4.18 L Hgb 12.7 L 12.5 L Hct 37.4 L 34.3 L Plt Count 115 L 90 L Lyme Screen IgG & IgM <0.90 Hepatitis A IgM Ab Nonreactive Hep Bs Antigen Negative Hep Bs Antibody NONREACTIVE Hep B Core Total Ab Nonreactive Hepatitis C Ab (EIA) Nonreactive 09/23/24 11:06 WBC 4.6 L RBC 4.33 L Hgb 12.4 L Hct 35.9 L Plt Count 101 L Lyme Screen IgG & IgM Hepatitis A IgM Ab Hep Bs Antigen Hep Bs Antibody Hep B Core Total Ab Hepatitis C Ab (EIA) Coding Level of Care Code Est Pt Level 4 (01410) Complex EM visit Add On G2211 Diagnoses Primary hypertension I10 Hypertension type: primary hypertension Dyslipidemia E78.5 Elevated LFTs R79.89 Pancytopenia D61.818 Polyarthralgia M25.50 Assessment & Plan Assessment & Plan (1) HTN (hypertension): Code(s): I10 - Essential (primary) hypertension Category: Medical Qualifiers: Hypertension type: primary hypertension Qualified Code(s): I10 - Essential (primary) hypertension Plan: bp better with higher dose continue current plan (2) Dyslipidemia: Code(s): E78.5 - Hyperlipidemia, unspecified Category: Medical Plan: tolerating crestor and fenofibrate joint pains are improved no urinary changes (3) Elevated LFTs: Code(s): R79.89 - Other specified abnormal findings of blood chemistry Category: Medical Plan: will have follow up soon with gi and u/s booked 11/04 discussed he must go to this labs ordered today (4) Pancytopenia: Code(s): D61.818 - Other pancytopenia Category: Medical Plan: will check labs today u/s scheduled next week following with hematology (5) Polyarthralgia: Code(s): M25.50 - Pain in unspecified joint Category: Medical Plan: improved taking diclofenac daily prn has follow up with rheum Orders: Orders Complete Blood Count Auto Diff Today D61.818 - Other pancytopenia, E78.5 - Hyperlipidemia, unspecified, I10 - Essential (primary) hypertension, M25.50 - Pain in unspecified joint, R79.89 - Other specified abnormal findings of blood chemistry Liver Panel Today D61.818 - Other pancytopenia, E78.5 - Hyperlipidemia, unspecified, I10 - Essential (primary) hypertension, M25.50 - Pain in unspecified joint, R79.89 - Other specified abnormal findings of blood chemistry Lipid Panel Today D61.818 - Other pancytopenia, E78.5 - Hyperlipidemia, unspecified, I10 - Essential (primary) hypertension, M25.50 - Pain in unspecified joint, R79.89 - Other specified abnormal findings of blood chemistry Smooth Muscle Antibody Today D61.818 - Other pancytopenia, E78.5 - Hyperlipidemia, unspecified, I10 - Essential (primary) hypertension, R79.89 - Other specified abnormal findings of blood chemistry, R94.5 - Abnormal results of liver function studies Gamma Glutamyl Transpeptidase Today D61.818 - Other pancytopenia, E78.5 - Hyperlipidemia, unspecified, I10 - Essential (primary) hypertension, R79.89 - Other specified abnormal findings of blood chemistry, R94.5 - Abnormal results of liver function studies Ceruloplasmin Today D61.818 - Other pancytopenia, E78.5 - Hyperlipidemia, unspecified, I10 - Essential (primary) hypertension, R79.89 - Other specified abnormal findings of blood chemistry, R94.5 - Abnormal results of liver function studies H pylori Ag Stool Today D61.818 - Other pancytopenia, E78.5 - Hyperlipidemia, unspecified, I10 - Essential (primary) hypertension, R79.89 - Other specified abnormal findings of blood chemistry, R94.5 - Abnormal results of liver function studies IRON PROFILE Today D61.818 - Other pancytopenia, E78.5 - Hyperlipidemia, unspecified, I10 - Essential (primary) hypertension, R79.89 - Other specified abnormal findings of blood chemistry, R94.5 - Abnormal results of liver function studies Vitamin B12 and Folate Today D61.818 - Other pancytopenia, E78.5 - Hyperlipidemia, unspecified, I10 - Essential (primary) hypertension, R79.89 - Other specified abnormal findings of blood chemistry, R94.5 - Abnormal results of liver function studies Basic Metabolic Panel Today D61.818 - Other pancytopenia, E78.5 - Hyperlipidemia, unspecified, I10 - Essential (primary) hypertension, M25.50 - Pain in unspecified joint, R79.89 - Other specified abnormal findings of blood chemistry Alpha 1 Anti-trypsin Today D61.818 - Other pancytopenia, E78.5 - Hyperlipidemia, unspecified, I10 - Essential (primary) hypertension, R79.89 - Other specified abnormal findings of blood chemistry, R94.5 - Abnormal results of liver function studies T Spot TB Today D61.818 - Other pancytopenia, E78.5 - Hyperlipidemia, unspeci fied, I10 - Essential (primary) hypertension, R79.89 - Other specified abnormal findings of blood chemistry, R94.5 - Abnormal results of liver function studies, Z11.1 - Encounter for screening for respiratory tuberculosis Zinc Today D61.818 - Other pancytopenia, E78.5 - Hyperlipidemia, unspecified, I10 - Essential (primary) hypertension, R79.89 - Other specified abnormal findings of blood chemistry, R94.5 - Abnormal results of liver function studies Medications: New diclofenac potassium 50 mg PO BID 180 tabs 1RF
[2024-10-28 11:36] VITALS: BP 132/76; PULSE 71; RESP 12; O2SAT 98; BMI 25.0
--- OUTSIDE RECORDS SUMMARY | 2024-10-28 12:06 | XMS_ITS | Clinical Summary ---
Author Organization [facility] Address [address] [place] [address] Phone Care Team Providers Care Vp Platforms Name Role Phone Gwendolyn Roth Primary Care Provider [phone] Medications polyethylene glycol (Golytely) 236-22.74-6.74 -5.86 gram [...] by the office 2 tablet 5 Active Social History Tobacco Use Types Packs/Day Years [...] Breast Cancer Screening 04/20/2021 04/20/2019 COVID-19 Vaccine ( season) 2023 08/09/2020, 07/08/2020 Colorectal Cancer Screening: Stool Based [...] Procedure Name Priority Date/Time Associated Diagnosis Comments ROCÍO SCREENING DIGITAL Routine 04/20/2019 1:37 PM EST Encounter for screening mammogram for malignant neoplasm of breast from Last 3 Months or Most Recently Relevant to Health Maintenance Results * ROCÍO SCREENING DIGITAL (04/20/2019 1:37 PM EST) Anatomical Region Laterality Modality Mammography 04/20/2019 10:2 2 AM EST Narrative 04/20/2019 1:37 PM EST [facility] Diagnostic Imaging Department [address] [place] [id number] Patient: GARCIA GIBBS Pascual /Age/Sex: 1973 - 46 - F Unit#: [id number] Location/Status: [facility] CLI Mnemonic[facility] Ordering Physician: MARCO ANTONIO LAIRD Rocío Screening Digital - 04/20/19 - 1045 History: Bilateral breast cancer screening. Technique: Bilateral digital mammography. Conventional CC and MLO projections with tomosynthesis MLO views and computer aided detection. Findings: Comparison: Radiology and Imaging incorporated [facility] 06/10/2018 and 04/18/2017. Breast tissue is mostly fatty replaced (category a density) bilaterally (as calculated by [employer] software). There are benign calcifications bilaterally. There is no suspicious group of microcalcification, no suspicious mass, architectural distortion or suspicious asymmetry. Impression: No evidence of malignancy. BIRADS category 2, benign findings, 3342F 87259, [id number] Note: Patient information entered into a reminder system with a target due date for the next mammogram; PQRI II [id number] Dictating Physician: JAMES COTO MD Electronically Signed by: JAMES COTO MD Dic Date/Time: 04/20/19 1336 Sign date/Time: 04/20/19 1337 Procedure Note James Coto - 03/13/2022 [facility] Diagnostic Imaging Department [address] [place] [id number] Patient: GARCIA GIBBS Pascual Laurent/Age/Sex: 1973 - 46 - F Unit#: [id number] Location/Status: [facility] CLI Mnemonic/Ordering Site: [facility] Ordering Physician: MARCO ANTONIO LAIRD CHIEF TELEPHONE OPERATOR Rocío Screening Digital - 04/20/19 - 1045 History: Bilateral breast cancer screening. Technique: Bilateral digital mammography. Conventional CC and MLOprojections with tomosynthesis MLO views and computer aided detection. Findings: Comparison: Radiology and Imaging incorporated [facility] 06/10/2018 and 04/18/2017. Breast tissue is mostly fatty replaced (category a density) bilaterally(as calculated by [employer] software). There are benigncalcifications bilaterally. There is no suspicious group of microcalcification, nosuspicious mass, architectural distortion or suspicious asymmetry. Impression: No evidence of malignancy. BIRADS category 2, benign findings, 3342F 05280, [id number] Note: Patient information entered into a reminder system with a targetdue date for the next mammogram; PQRI II 7014F Dictating Physician: JAMES COTO MD Electronically Signed by: JAMES COTO MD Dic Date/Time: 04/20/19 1336 Sign date/Time: 04/20/19 1337 Nice Luann CHIEF TELEPHONE OPERATOR IMG BI PROCEDURES Final Result from Last 3 Months or Most Recently Relevant to Health Maintenance Insurance [employer] [place], [place] [id number] [employer] [place] [id number] Care Teams Vp Platforms Relationship Specialty Start Date End Date Gwendolyn Roth PCP - General 10/29/23
--- OUTSIDE RECORDS SUMMARY | 2024-10-28 12:07 | XMS_ITS | Clinical Summary ---
Author Organization [facility] Address [address] [place] [address] Care Team Providers Care Baker Operator Automatic Name Role Phone Gwendolyn Roth NP Primary [...] complication, without long-term current use of insulin ([facility]) Dx. E11.65 - Blood sugar check daily 100 Each 11 3 Active blood sugar diagnostic (FREESTYLE TEST) stripsIndicatio ns:Type 2 diabetes mellitus without complication, without long-term current use of insulin ([facility]) Dx. E11.65 - Blood sugar check daily . FREESTYLE LITE Test strips 100 Each 11 3 Active lancetsIndicati ons:Type 2 diabetes mellitus without complication, without long-term current use of insulin ([facility]) Dx. E11.65 - Blood sugar check [...] complication, without long-term current use of insulin ([facility]) Take 1 Tablet by mouth once daily [...] complication, without long-term current use of insulin ([facility]) Take 1 Tablet by mouth 2 (two) times daily before a meal 180 Tablet 1 4 Active metFORMIN (GLUCOPHAGE) 1,000 mg tabletIndicatio ns:Prescription refill,Type 2 diabetes mellitus without complication, without long-term current use of insulin ([facility]) Take 1 Tablet by mouth 2 (two) [...] As per eye examination done 05/22/15 @ [facility].Dr. Adrianna Wilson Pinguecula of both eyes 06/10/2015 Overview (06/10/2015): As per eye examination done 05/22/15 @ [facility].Dr. Adrianna Wilson Presbyopia 06/10/2015 Overview (06/10/2015): As per eye examination done 05/22/15 @ [facility].Dr. Adrianna Wilson Uncontrolled type 2 diabetes mellitus with hyperglycemia ([facility]) 11/30/2014 Overview (11/30/2014): Lab Results Component Value Date HGBA1C 6.8* 11/30/2014 Primary hypertension 01/12/2013 Overview (06/21/2021): [facility] 05/18/16- No pulmonary embolus. Diet controlled currently Hypothyroidism 01/12/2013 Vitamin D deficiency disease 01/12/2013 Immunizations Immunization Administration Dates Next Due Flu, Adjuvant, 65y+ (Fluad) 12/24/2019 Flu, Preservative Free 02/21/2021,2019,03/10/2019,04/02 Hep B, Adult/Adol (KOOSLRF-C-MFVCZ/RECOMBIVAX-ADULT) 01/16/2012,08/15/2011,07/16/2011 INFLUENZA, SEASONAL, INJECTABLE 01/29/2016,01/06,03/18/2012 INFLUENZA, SEASONAL, [...] 05/07/19 13 Imm-Zoster, Recombinant Completed 02/26/2023, 11/21 [id number] Completed 12/24/2023, 12/22, 03/13/2021, Additional history exists [...] 2 diabetes mellitus with hyperglycemia ([facility]) FECAL GLOBIN BY IMMUNOCHEMISTRY (FIT) Routine [...] EDT) TSH 1.36 0.40 - 4.50 mIU/L [facility] Comment: Reference Range > or = 20 Years 0.40-4.50 Ranges First trimester 0.26-2.66 Second trimester 0.55-2.73 Third trimester 0.43-2.91 Blood Blood / Unknown 09/02/2023 9 :38 AM EDT 09/02/2023 9:38 AM EDT Gwendolyn Roth NP LAB - BLOOD DRAW Edited Resu lt - Final [facility] [address] [place] [id number], [facility] [address] [place] [phone] * MICROALBUMIN/CREATININE RATIO, URINE, RANDOM (09/02/2023 9:38 AM EDT) CREATININE, RANDOM URINE 79 20 - 275 mg/dL [facility] MICROALBUMIN 0.2 mg/dL [facility] Comment: Reference Range Not established MICROALBUMIN/CREA TININE RATIO, RANDOM URINE 3 <30 mg/g creat [facility] Comment: The ADA defines abnormalities in albumin [...] AMBULATORY Final R esult Performing Organization Address [facility] Co de Phone Number [facility] [address] [address], [facility] [address] [address] * (ABNORMAL) HEMOGLOBIN GLYCOSYLATED A1C (09/02/2023 9:38 AM EDT) HEMOGLOBIN A1C 9.7(H) <5.7 % of total Hgb [facility] Comment: For someone without known diabetes, a [...] Resu lt - Final Performing Organization Address [facility]/ZIP Co de Phone Number [facility] [address] [address], [facility] [address] [phone] * (ABNORMAL) LIPID PANEL (09/02/2023 9:38 AM EDT) CHOLESTEROL, TOTAL 145 <200 mg/dL [facility] HDL CHOLESTEROL 49(L) > OR = 50 mg/dL [facility] TRIGLYCERIDES 163(H) <150 mg/dL [facility] LDL-CHOLESTEROL 72 99 mg/dL (calc) [facility] Comment: Reference range: <100 Desirable range <100 mg/dL for primary prevention; <70 mg/dL for patients with CHD or diabetic patients with > or = 2 CHD risk factors. LDL-C is now calculated using the Soniya calculation, which is a validated novel method providing better accuracy than the Friedewald equation in the estimation of LDL-C. Gabriele SS et al. CURTIS. 2013;310(65): 8806-2775 (http://education.[employer]/faq/OLD472) CHOL/HDLC RATIO 3.0 <5.0 (calc) [facility] NON-HDL CHOLESTEROL 96 <130 mg/dL (calc) [facility] Comment: For patients with diabetes plus 1 major ASCVD risk factor, treating to a non-HDL-C goal of <100 mg/dL (LDL-C of <70 mg/dL) is considered a therapeutic option. Blood Blood / Unknown 09/02/2023 9 :38 AM EDT 09/02/2023 9:38 AM EDT us Gwendolyn Roth NP LAB - BLOOD DRAW Final Resul t [facility] [address] [place] [id number], [facility] [address] [place] [phone] * (ABNORMAL) COMPREHENSIVE METABOLIC PANEL (09/02/2023 9:38 AM EDT) GLUCOSE 135(H) 65 - 99 mg/dL [facility] Comment: Fasting reference interval For someone without known diabetes, a glucose value >125 mg/dL indicates that they may have diabetes and this should be confirmed with a follow-up test. UREA NITROGEN (BUN) 10 7 - 25 mg/dL [facility] CREATININE (blood) 0.67 0.50 - 1.03 mg/dL [facility] EGFR 106 > OR = 60 mL/min/1. 73m2 [facility] BUN/CREATININE RATIO SEE NOTE: [facility] Comment: Not Reported: BUN and Creatinine are within reference range. SODIUM 141 135 - 146 mmol/L [facility] POTASSIUM 4.7 3.5 - 5.3 mmol/L [facility] CHLORIDE 106 98 - 110 mmol/L [facility] CARBON DIOXIDE 26 20 - 32 mmol/L [facility] CALCIUM 9.6 8.6 - 10.4 mg/dL [facility] PROTEIN, TOTAL 7.2 6.1 - 8.1 g/dL [facility] ALBUMIN 4.1 3.6 - 5.1 g/dL [facility] GLOBULIN 3.1 1.9 - 3.7 g/dL (calc) [facility] ALBUMIN/GLOBULI N RATIO 1.3 1.0 - 2.5 (calc) [facility] BILIRUBIN, TOTAL 0.6 0.2 - 1.2 mg/dL [facility] ALKALINE PHOSPHATASE 68 37 - 153 U/L [facility] AST 30 10 - 35 U/L [facility] ALT 40(H) 6 - 29 U/L [facility] Blood Blood / Unknown 09/02/2023 9 :38 AM EDT 09/02/2023 9:38 AM EDT Gwendolyn Roth CHAIN MORTISER OPERATOR LAB - BLOOD DRAW Edited Resu lt - Final Performing Organization Address City/[facility] Co de Phone Number [facility] [address] [address], [facility] [address] [phone] * FIT DIAGNOSITC ONLY (09/10/2022 8:00 PM EDT) FECAL GLOBIN BY IMMUNOCHEMISTRY See Note [facility] Comment: FECAL GLOBIN BY IMMUNOCHEMISTRY Micro Number: [id number] Test Status: Final Specimen Source: Insure (tm) fobt test card Specimen Quality: Adequate Fecal Globin: Not Detected Stool Stool specimen / Unknown 09/10/2022 8:00 PM EDT 09/12/2022 3:24 AM EDT Jessica Tinsley SAMPLE TAKER OPERATOR-C LAB BODY FLUIDS AND STOOLS A MBULATORY Final Result Performing Organization Address City/[facility]/ZIP Co de Phone Number [employer] [facility] [address] [address], [facility] [address] [phone] * THIN PREP IMAGE PAP + HPV RNA E6/E7 W/RFLX HPV 16, 18/45 (05/24/2021 10:13 AM EST) CLINICAL INFORMATION See Note [facility] Comment:Routine exam LMP See Note [facility] Comment:[id number] PREV. PAP See Note [facility] Comment:NONE GIVEN PREV. BX See Note [facility] Comment:NONE GIVEN SOURCE See Note [facility] Comment:Cervix STATEMENT OF ADEQUACY See Note [facility] Comment: Satisfactory for evaluation. Endocervical/transformation zone component present. INTERPRETATION/RESU LT See Note [facility] Comment:Negative for intraep ithelial lesion or malignancy. COMMENT See Note [facility] Comment: This Pap test has been evaluated with computer assisted technology. FUNERAL HOME ATTENDANT See Note [facility] Comment: [place], CT(ASCP) CT screening location: [address] [address] COMMENT [facility] HPV MRNA E6/E7 Not Detected Not Detected [facility] Comment: Methodology: Heavy Media Operator-Mediated Amplification This assay detects E6/E7 viral messenger RNA (mRNA) from 14 high-risk HPV types (16,18,31,33,35,39,45,51,52,56,58,59,66,68). The analytical performance characteristics of this assay have been determined by [employer]. The modifications have not been cleared or approved by the FDA. This assay has been validated pursuant to the CLIA regulations and is used for clinical purposes. For additional information, please refer to http://education.[employer]/faq/WIT441h6 (This link if provided for information/ educational purposes only.) Cervix Cervix uteri structure / Unknown 05/24/2021 10:13 AM EST 05/25/2021 3:22 AM EST Narrative [employer] [facility] - 05/28/2021 9:42 AM EST EXPLANATORY NOTE: [...] historic and current clinical information. Jessica Rolandadia [facility]- LAB - PATHOLOGY AND CYTOLOGY AMBULATORY Final Result Performing Organization Address [facility]/ZIP Co de Phone Number [facility] [address] [address], [facility] [address] [phone] * HEPATITIS C AB W/RFLX HCV RNA, QT, RT PCR (11/29/2020 10:01 AM EDT) HEPATITIS C ANTIBODY NON-REACT JUVENCIO NON-REACT JUVENCIO [facility] SIGNAL TO CUT-OFF 0.03 <1.00 [facility] Comment: HCV antibody was non-reactive. There is no laboratory evidence of HCV infection. In most cases, no further action is required. However, if recent HCV exposure is suspected, a test for HCV RNA (test code 60817) is suggested. For additional information please refer to http://education.[employer]/faq/XBC27z7 (This link is being provided for informational/ educational purposes only.) Blood Blood / Unknown 11/29/2020 1 0:01 AM EDT 11/29/2020 10:02 AM EDT Narrative [facility] - 12/01/2020 8:45 PM EDT FASTING:YES Jessica Rolandadia [facility]-C LAB - BLOOD DRAW Edited Resu lt - Final Performing Organization Address City/[facility]/ZIP Co de Phone Number [facility] [address] [address], [facility] [address] [phone] * HIV 1/2 AG & AB W/RFLX (4TH GEN) (11/29/2020 10:01 AM EDT) HIV AG/AB, 4TH GEN NON-REAC TIVE NON-REAC TIVE [facility] Comment: HIV-1 antigen and HIV-1/HIV-2 antibodies were [...] purpose. For additional information please refer to http://education.[employer]/faq/OAI619 (This link is being provided for informational/ educational purposes only.) The performance of this assay has not been clinically validated in patients less than 2 years old. Blood Blood / Unknown 11/29/2020 1 0:01 AM EDT 11/29/2020 10:02 AM EDT Narrative [facility] [employer] [facility] - 12/01/2020 8:45 PM EDT FASTING:YES Jessica QUEENP-C LAB - BLOOD DRAW Edited Resu lt - Final [facility] [address] [address], [facility] [address] [address] * MAMMOGRAM BI-RADS, ABSTRACTED (04/20/2019 1:59 PM [...] Most Recently Relevant to Health Maintenance Insurance [place] MED[place] DENTAL [facility] HEALTH INSURANCE HEALTH [place]AF[place] [address] Care Teams Baker Operator Automatic Relationship Specialty Start Date End Date Gwendolyn Roth NP [address] [place] [address] PCP - General Internal Medicine 04/18/23
== END 2024-10-28 12:17 | disposition home or self-care (01) ==
LOC: HO.HMCFM 11:26
PROVIDERS: PCP Physician Assistant; Visit Provider Physician Assistant
DX: I10 Essential (primary) hypertension (principal); E78.5 Hyperlipidemia, unspecified; R79.89 Other specified abnormal findings of blood chemistry; D61.818 Other pancytopenia; M25.50 Pain in unspecified joint

== ENCOUNTER 2024-10-29 06:01 | Outpatient (REF) | payer OTHER, SELFPAY ==
[2024-10-29 06:22] LABS: MANUAL DIFF FLAG NO
[2024-10-29 07:35] LABS: Hematocrit 39.7 % (42.0-52.0); Hemoglobin 13.6 g/dl (14.0-18.0); Imm Gran Abs Auto 0.01 X10*3/uL (0.00-0.03); Imm Gran Pct Auto 0.2 % (0.0-0.4); Lymphocytes Absolute Auto 2.2 X10*3/uL (1.2-4.9); Mean Corpuscular HGB Conc 34.3 g/dl (31.0-36.0); Mean Corpuscular Hemoglobin 28.7 pg (27.0-33.0); Mean Corpuscular Volume 83.8 fL (80.0-98.0); NRBC Abs Auto 0.000 X10*3/uL (0.0-0.012); NRBC Pct Auto 0.0 /100WBC (0.0-0.2); Platelet Count 156 X10*3/uL (160-400); Red Blood Count 4.74 X10*6/uL (4.60-5.80); White Blood Count 5.6 X10*3/uL (4.8-10.8)
[2024-10-29 08:03] LABS: Alanine Aminotransferase 65 U/L (0-40); Albumin Level 5.0 g/dL (3.5-5.0); Alkaline Phosphatase 60 U/L (39-117); Anion Gap 15 (12-20); Aspartate Amino Transferase 48 U/L (5-37); Blood Urea Nitrogen 16 mg/dL (9-16); Calcium 9.4 mg/dL (8.4-10.2); Carbon Dioxide 23 mmol/L (22-29); Chloride 106 mmol/L (96-108); Cholesterol 225 mg/dL (<200); Estimated Glomerular Filt Rate > 60; HDL Cholesterol 38 mg/dL (>40); Iron 89 mcg/dL (45-160); Percent Iron Saturation 27 % (15-50); Potassium 3.8 mmol/L (3.3-5.1); Sodium 140 mmol/L (135-145); Total Iron Binding Capacity 328 mcg/dL (228-428); Total Protein 8.1 g/dL (6.5-8.0); Triglycerides 1233 mg/dL (<150); Unsaturated Iron Binding 239 ug/dL
[2024-10-29 08:19] LABS: Gamma Glutamyl Transpeptidase 103 U/L (11-51)
[2024-10-29 08:31] LABS: Folate 7.9 ng/mL (> or = 4.0); Vitamin B12 389 pg/mL (200-900)
[2024-11-01 14:12] LABS: TS Negative Control Passed; TS Panel A 0; TS Panel B 2; TS Positive Control Passed; TSpotTB Negative (Negative)
== END 2024-10-29 06:02 | disposition home or self-care (01) ==
LOC: HO.LAB 06:01
PROVIDERS: PCP Physician Assistant; Visit Provider Physician Assistant
DX: Z11.1 Encounter for screening for respiratory tuberculosis (principal); I10 Essential (primary) hypertension; R94.5 Abnormal results of liver function studies; R79.89 Other specified abnormal findings of blood chemistry; M25.50 Pain in unspecified joint; E78.5 Hyperlipidemia, unspecified; D61.818 Other pancytopenia
CPT/HCPCS: 36415; 80048; 80061; 80076; 82103; 82390; 82607; 82746; 82977; 83540; 84630; 85025; 86015; 86481

== ENCOUNTER 2024-11-04 10:20 | Outpatient (REF) | payer OTHER, SELFPAY ==
--- NOTE | ~2024-11-04 | US_ITS ---
EXAMINATION: US ABDOMEN COMPLETE WITH LIVER ELASTOGRAPHY HISTORY: D64.9 - ABNORMAL RESULTS OF LIVER FUNCTION STUDIES TECHNIQUE: Real-time grayscale ultrasound imaging of the abdomen was performed and images were reviewed. COMPARISON: There are no prior studies available for comparison. FINDINGS: Liver: The right lobe of the liver measures 14.1 cm in size. The left lobe of the liver measures 8.1 cm in size. The liver demonstrates increased echotexture, consistent with steatosis. No focal mass or intrahepatic biliary ductal dilatation is identified. There is normal hepatopedal flow in the portal vein. Ultrasound elastography of the liver was performed with 10 separate measurements of the liver parenchyma with the patient in the supine position. Measurements were obtained approximately 2 cm below Rodney's capsule and perpendicular to the capsule. The median shear wave velocity is 1.71 m/s. The interquartile range/median (IQR/median) is 0.06. Gallbladder and biliary tree: The gallbladder is unremarkable, without evidence of calculi, wall thickening, or pericholecystic fluid. There is no sonographic Muhammad sign. The common bile duct is normal in caliber measuring 4 mm. Kidneys: The right kidney measures 10.7 cm in length. The left kidney measures 10.5 cm in length. The kidneys are unremarkable, without evidence of masses, hydronephrosis, or calculi. Pancreas: The pancreatic head, neck, and body are unremarkable. The pancreatic tail is obscured by bowel gas. Spleen: The spleen is normal in size and contour, measuring 11.9 cm in length. Abdominal aorta and inferior vena cava: The visualized portions of the abdominal aorta and inferior vena cava are normal in caliber. There is no free fluid in the abdomen. US/US abdomen comp w elastography IMPRESSION: Hepatic steatosis. The median shear wave velocity in the liver is 1.71 m/s, corresponding to a median liver stiffness of 9.03 kPa. The IQR/median value is 0.06. This is indicative of a quality data set. Findings are indicative of a high elastography value suggestive of compensated advanced chronic liver disease. REFERENCE: Society of Radiologists in Ultrasound Liver Stiffness Thresholds (2020): LIVER STIFFNESS THRESHOLDS: *Shear wave velocity less than 1.3 m/s (Liver Stiffness equal or less than 5 kPa): High probability of being normal. *Shear wave velocity less than 1.7 m/s (Liver Stiffness less than 9 kPa): In the absence of other known clinical signs, rules out compensated advanced chronic liver disease. *Shear wave velocity between 1.7-2.1 m/s (Liver Stiffness 9-13 kPa): Suggestive of compensated advanced chronic liver disease but need further test for confirmation. *Shear wave velocity between 2.1-2.4 m/s (Liver Stiffness 13-17 kPa): Rules in compensated advanced chronic liver disease. *Shear wave velocity greater than 2.4 m/s (Liver Stiffness over 17 kPa): Suggestive of clinically significant portal hypertension. QUALITY OF DATA SET: SIGNIFICANT CHANGE FROM PRIOR EXAM: Significant change if liver stiffness measurement is 10% or greater from prior exam. OTHER CONSIDERATIONS: The stage of liver fibrosis may be overestimated in the setting of acute hepatitis, liver inflammation, elevated liver function tests, hepatic vascular congestion, obstructive cholestasis, non-fasting state, and infiltrative diseases such as amyloidosis and lymphoma. In some patients with NAFLD, the liver stiffness thresholds for compensated advanced chronic liver disease may be lower. In causes other than viral hepatitis and NAFLD, liver stiffness thresholds are not well established. Electronically signed by: Sky Fraser MD 11/04/2024 11:13 AM EDT
--- OUTSIDE RECORDS SUMMARY | 2024-11-04 11:08 | XMS_ITS | Clinical Summary ---
Author Organization [facility] Address [address] [place] [address] Care Team Providers Care Dye Weigher Helper Name Role Phone Gwendolyn Roth NP Primary [...] complication, without long-term current use of insulin ([facility]) Dx. E11.65 - Blood sugar check daily 100 Each 11 3 Active blood sugar diagnostic (FREESTYLE TEST) stripsIndicatio ns:Type 2 diabetes mellitus without complication, without long-term current use of insulin ([facility]) Dx. E11.65 - Blood sugar check daily . FREESTYLE LITE Test strips 100 Each 11 3 Active lancetsIndicati ons:Type 2 diabetes mellitus without complication, without long-term current use of insulin ([facility]) Dx. E11.65 - Blood sugar check [...] complication, without long-term current use of insulin ([facility]) Take 1 Tablet by mouth once daily [...] complication, without long-term current use of insulin ([facility]) Take 1 Tablet by mouth 2 (two) times daily before a meal 180 Tablet 1 4 Active metFORMIN (GLUCOPHAGE) 1,000 mg tabletIndicatio ns:Prescription refill,Type 2 diabetes mellitus without complication, without long-term current use of insulin ([facility]) Take 1 Tablet by mouth 2 (two) [...] As per eye examination done 05/22/15 @ [facility].Dr. Adrianna Wilson Pinguecula of both eyes 06/10/2015 Overview (06/10/2015): As per eye examination done 05/22/15 @ [facility].Dr. Adrianna Wilson Presbyopia 06/10/2015 Overview (06/10/2015): As per eye examination done 05/22/15 @ [facility].Dr. Adrianna Wilson Uncontrolled type 2 diabetes mellitus with hyperglycemia ([facility]) 11/30/2014 Overview (11/30/2014): Lab Results Component Value Date HGBA1C 6.8* 11/30/2014 Primary hypertension 01/12/2013 Overview (06/21/2021): [facility] 05/18/16- No pulmonary embolus. Diet controlled currently Hypothyroidism 01/12/2013 Vitamin D deficiency disease 01/12/2013 Immunizations Immunization Administration Dates Next Due Flu, Adjuvant, 65y+ (Fluad) 12/24/2019 Flu, Preservative Free 02/21/2021,2019,03/10/2019,04/02 Hep B, Adult/Adol (FAWRPGT-G-PSFHH/RECOMBIVAX-ADULT) 01/16/2012,08/15/2011,07/16/2011 INFLUENZA, SEASONAL, INJECTABLE 01/29/2016,01/06,03/18/2012 INFLUENZA, SEASONAL, [...] 09/01/2024 09/02/2023, 08/2022, 09/04/2022, Additional history exists Tobacco Screening 09/01/2024 09/02/2023, , 11/21/2022 Urine Albumin Creatinine Rat io Screening 09/01/2024 09/02/2023, 05/09/2022, 11/29/2020, Additional history exists Imm-Influenza (#1) 2024 12/24/2023, 1 04/22/2021, 02/21/2021, Additional history exists Cervical Cancer Screening 05/24/2026 Pap + HPV 05/24/2026 05/24/2021 Imm-DTaP/Tdap/Td (4 - Td or Tdap) 06/28/2031 06/27/2021, 06/12/2011, 02/05/2011 Imm-Hepatitis B Completed 01/16/2012, 07/23, 07/16/2011 HIV Screening Completed 11/29/2020 Hepatitis C Screening Completed 11/29/2020, 015 Imm-Pneumococcal 50+ Completed 02/26/2023, 05/07/19 13 Imm-Zoster, Recombinant Completed 02/26/2023, 11/21 [id number] Completed 12/24/2023, 12/22, 03/13/2021, Additional history exists [...] mellitus with hyperglycemia ([facility]) LIPID PANEL Routine 09/02/2023 9:38 AM EDT Uncontrolled type 2 diabetes mellitus with hyperglycemia ([facility]) MICROALBUMIN/CREATININE RATIO, URINE, RANDOM Routine 09/02/2023 9:38 [...] EDT) TSH 1.36 0.40 - 4.50 mIU/L [employer] [facility] Comment: Reference Range > or = 20 Years 0.40-4.50 Ranges First trimester 0.26-2.66 Second trimester 0.55-2.73 Third trimester 0.43-2.91 Blood Blood / Unknown 09/02/2023 9 :38 AM EDT 09/02/2023 9:38 AM EDT Gwendolyn Roth NP LAB - BLOOD DRAW Edited Resu lt - Final [employer] [address] [place] [id number], [employer] [address] [address] * MICROALBUMIN/CREATININE RATIO, URINE, RANDOM (09/02/2023 9:38 AM EDT) CREATININE, RANDOM URINE 79 20 - 275 mg/dL [employer] MICROALBUMIN 0.2 mg/dL [employer] Comment: Reference Range Not established MICROALBUMIN/CREA TININE RATIO, RANDOM URINE 3 <30 mg/g creat [employer] Comment: The ADA defines abnormalities in albumin [...] AMBULATORY Final R esult Performing Organization Address [facility] Co de Phone Number [employer] [address] [address], [employer] [address] [address] * (ABNORMAL) HEMOGLOBIN GLYCOSYLATED A1C (09/02/2023 9:38 AM EDT) HEMOGLOBIN A1C 9.7(H) <5.7 % of total Hgb [facility] Comment: For someone without known diabetes, a [...] Resu lt - Final Performing Organization Address City/[facility]/ZIP Co de Phone Number [facility] [address] [address], [employer] [address] [address] * (ABNORMAL) LIPID PANEL (09/02/2023 9:38 AM EDT) CHOLESTEROL, TOTAL 145 <200 mg/dL [facility] HDL CHOLESTEROL 49(L) > OR = 50 mg/dL [facility] TRIGLYCERIDES 163(H) <150 mg/dL [facility] LDL-CHOLESTEROL 72 99 mg/dL (calc) [facility] Comment: Reference range: <100 Desirable range <100 mg/dL for primary prevention; <70 mg/dL for patients with CHD or diabetic patients with > or = 2 CHD risk factors. LDL-C is now calculated using the Soniya calculation, which is a validated novel method providing better accuracy than the Friedewald equation in the estimation of LDL-C. Gabriele SS et al. CURTIS. 2013;310(19): 3455-7943 (http://education.POI/faq/ZUK403) CHOL/HDLC RATIO 3.0 <5.0 (calc) [facility] NON-HDL CHOLESTEROL 96 <130 mg/dL (calc) [facility] Comment: For patients with diabetes plus 1 major ASCVD risk factor, treating to a non-HDL-C goal of <100 mg/dL (LDL-C of <70 mg/dL) is considered a therapeutic option. Blood Blood / Unknown 09/02/2023 9 :38 AM EDT 09/02/2023 9:38 AM EDT Gwendolyn Roth NP LAB - BLOOD DRAW Final Resul t [employer] [address] [place] [id number], [employer] [address] [place] [phone] * (ABNORMAL) COMPREHENSIVE METABOLIC PANEL (09/02/2023 9:38 AM EDT) GLUCOSE 135(H) 65 - 99 mg/dL [facility] Comment: Fasting reference interval For someone without known diabetes, a glucose value >125 mg/dL indicates that they may have diabetes and this should be confirmed with a follow-up test. UREA NITROGEN (BUN) 10 7 - 25 mg/dL [employer] CREATININE (blood) 0.67 0.50 - 1.03 mg/dL [employer] EGFR 106 > OR = 60 mL/min/1. 73m2 [facility] BUN/CREATININE RATIO SEE NOTE: [facility] Comment: Not Reported: BUN and Creatinine are within reference range. SODIUM 141 135 - 146 mmol/L [facility] POTASSIUM 4.7 3.5 - 5.3 mmol/L [employer] CHLORIDE 106 98 - 110 mmol/L [facility] CARBON DIOXIDE 26 20 - 32 mmol/L [facility] CALCIUM 9.6 8.6 - 10.4 mg/dL [facility] PROTEIN, TOTAL 7.2 6.1 - 8.1 g/dL [facility] ALBUMIN 4.1 3.6 - 5.1 g/dL [facility] GLOBULIN 3.1 1.9 - 3.7 g/dL (calc) [facility] ALBUMIN/GLOBULI N RATIO 1.3 1.0 - 2.5 (calc) [facility] BILIRUBIN, TOTAL 0.6 0.2 - 1.2 mg/dL [facility] ALKALINE PHOSPHATASE 68 37 - 153 U/L [facility] AST 30 10 - 35 U/L [facility] ALT 40(H) 6 - 29 U/L [employer] Blood Blood / Unknown 09/02/2023 9 :38 AM EDT 09/02/2023 9:38 AM EDT Gwendolyn Roth CEMENTER HAND LAB - BLOOD DRAW Edited Resu lt - Final Performing Organization Address City/[facility] Co de Phone Number [employer] [address] [address], [employer] [address] [address] * FIT DIAGNOSITC ONLY (09/10/2022 8:00 PM EDT) FECAL GLOBIN BY IMMUNOCHEMISTRY See Note [facility] Comment: FECAL GLOBIN BY IMMUNOCHEMISTRY Micro Number: [id number] Test Status: Final Specimen Source: Insure (tm) fobt test card Specimen Quality: Adequate Fecal Globin: Not Detected Stool Stool specimen / Unknown 09/10/2022 8:00 PM EDT 09/12/2022 3:24 AM EDT Jessica Tinsley DRY TALC RACKER-C LAB BODY FLUIDS AND STOOLS A MBULATORY Final Result Performing Organization Address City/[facility] Co de Phone Number [employer] [address] [address], [employer] [address] [address] * THIN PREP IMAGE PAP + HPV RNA E6/E7 W/RFLX HPV 16, 18/45 (05/24/2021 10:13 AM EST) CLINICAL INFORMATION See Note [facility] Comment:Routine exam LMP See Note [facility] Comment:[id number] PREV. PAP See Note [facility] Comment:NONE GIVEN PREV. BX See Note [facility] Comment:NONE GIVEN SOURCE See Note [facility] Comment:Cervix STATEMENT OF ADEQUACY See Note [facility] Comment: Satisfactory for evaluation. Endocervical/transformation zone component present. INTERPRETATION/RESU LT See Note [employer] [facility] Comment:Negative for intraep ithelial lesion or malignancy. COMMENT See Note [facility] Comment: This Pap test has been evaluated with computer assisted technology. CHIEF DRAFTER See Note [facility] [employer] [facility] Comment: [place], CT(ASCP) CT screening location: [place] [address] COMMENT [facility] HPV MRNA E6/E7 Not Detected Not Detected [facility] Comment: Methodology: Radiocommunications Technician-Mediated Amplification This assay detects E6/E7 viral messenger RNA (mRNA) from 14 high-risk HPV types (16,18,31,33,35,39,45,51,52,56,58,59,66,68). The analytical performance characteristics of this assay have been determined by [facility]. The modifications have not been cleared or approved by the FDA. This assay has been validated pursuant to the CLIA regulations and is used for clinical purposes. For additional information, please refer to http://education.CiiNOW.AfterCollege/faq/SHS594o5 (This link if provided for information/ educational purposes only.) Cervix Cervix uteri structure / Unknown 05/24/2021 10:13 AM EST 05/25/2021 3:22 AM EST Narrative [employer] - 05/28/2021 9:42 AM EST EXPLANATORY NOTE: [...] with historic and current clinical information. Jessica Laureano [facility] LAB - PATHOLOGY AND CYTOLOGY AMBULATORY Final Result Performing Organization Address [facility] Co de Phone Number [facility] [address] [address], [employer] [address],[place] [address] * HEPATITIS C AB W/RFLX HCV RNA, QT, RT PCR (11/29/2020 10:01 AM EDT) HEPATITIS C ANTIBODY NON-REACT JUVENCIO NON-REACT JUVENCIO [facility] SIGNAL TO CUT-OFF 0.03 <1.00 [facility] Comment: HCV antibody was non-reactive. There is no laboratory evidence of HCV infection. In most cases, no further action is required. However, if recent HCV exposure is suspected, a test for HCV RNA (test code 56963) is suggested. For additional information please refer to http://education.FiREapps/faq/XWR76r0 (This link is being provided for informational/ educational purposes only.) Blood Blood / Unknown 11/29/2020 1 0:01 AM EDT 11/29/2020 10:02 AM EDT Narrative [facility] - 12/01/2020 8:45 PM EDT FASTING:YES Jessica Laureano [facility] LAB - BLOOD DRAW Edited Resu lt - Final Performing Organization Address [facility]/ZIP Co de Phone Number [facility] [address] [address], [employer] [address] [address] * HIV 1/2 AG & AB W/RFLX (4TH GEN) (11/29/2020 10:01 AM EDT) HIV AG/AB, 4TH GEN NON-REAC TIVE NON-REAC TIVE [facility] Comment: HIV-1 antigen and HIV-1/HIV-2 antibodies [...] purpose. For additional information please refer to http://education.FiREapps/faq/TBM931 (This link is being provided for informational/ educational purposes only.) The performance of this assay has not been clinically validated in patients less than 2 years old. Blood Blood / Unknown 11/29/2020 1 0:01 AM EDT 11/29/2020 10:02 AM EDT Narrative [facility] - 12/01/2020 8:45 PM EDT FASTING:YES Jessica [facility] LAB - BLOOD DRAW Edited Resu lt - Final [facility] [address] [address], [employer] [address] [address] * MAMMOGRAM BI-RADS, ABSTRACTED (04/20/2019 1:59 PM EST) BI-RADS ASSESSMENT 1 - Negative: means that there is no significant or noticeable abnormality to report. BI-RADS FOLLOW-UP 1 - Routine Screening Anatomical Region Laterality Modality Other Impressions 04/20/2019 1:59 PM EST As per [employer] no evidence of malignancy. Provider Aleksandr IMG MAMMO Final Result from Last 3 Months or Most Recently Relevant to Health Maintenance Insurance [place] MEDICAID DENTAL [facility] INSURANCE HEALTH [place] [address] Care Teams Dye Weigher Helper Relationship Specialty Start Date End Date Gwendolyn Roth NP [address] [place] [address] PCP - General Internal Medicine 04/18/23
--- OUTSIDE RECORDS SUMMARY | 2024-11-04 11:08 | XMS_ITS | Clinical Summary ---
Author Organization [facility] Address [address] [place] [address] Phone Care Team Providers Care Power Engineer Name Role Phone Gwendolyn Roth Primary Care Provider Medications polyethylene glycol (Golytely) 236-22.74-6.74 -5.86 gram [...] AM EST Narrative 04/20/2019 1:37 PM EST [facility] Diagnostic Imaging Department [address] [place] [address] Patient: GARCIA GIBBS Pascual /Age/Sex: 1973 - 46 - F Unit#: [id number] Location/Status: [facility]em[facility] Order[facility] Physician: MARCO ANTONIO LAIRD Rocío Screening Digital - 04/20/19 - 1045 History: Bilateral breast cancer screening. Technique: Bilateral digital mammography. Conventional CC and MLO projections with tomosynthesis MLO views and computer aided detection. Findings: Comparison: Radiology and Imaging incorporated [facility] 06/10/2018 and 04/18/2017. Breast tissue is mostly fatty replaced (category a density) bilaterally (as calculated by Lottaypara software). There are benign calcifications bilaterally. There is no suspicious group of microcalcification, no suspicious mass, architectural distortion or suspicious asymmetry. Impression: No evidence of malignancy. BIRADS category 2, benign findings, 3342F [id number], [id number] Note: Patient information entered into a reminder system with a target due date for the next mammogram; PQRI II [id number] Dictating Physician: JAMES COTO MD Electronically Signed by: JAMES COTO MD Dic Date/Time: 04/20/19 1336 Sign date/Time: 04/20/19 1337 Procedure Note James Coto - 03/13/2022 [facility] Diagnostic Imaging Department [address] [place] [address] Patient: GARCIA GIBBS Pascual Laurent/Age/Sex: 1973 - 46 - F Unit#: [id number] Location/Status: [facility] CLI Mnemonic/Ordering Site: [facility] Ordering Physician: MARCO ANTONIO LAIRD WATCH ENGINEER Rocío Screening Digital - 04/20/19 - 1045 History: Bilateral breast cancer screening. Technique: Bilateral digital mammography. Conventional CC and MLOprojections with tomosynthesis MLO views and computer aided detection. Findings: Comparison: Radiology and Imaging incorporated [facility] 06/10/2018 and 04/18/2017. Breast tissue is mostly fatty replaced (category a density) bilaterally(as calculated by [employer] Volpara software). There are benigncalcifications bilaterally. There is no suspicious group of microcalcification, nosuspicious mass, architectural distortion or suspicious asymmetry. Impression: No evidence of malignancy. BIRADS category 2, benign findings, 3342F [address]1524, [id number] Note: Patient information entered into a reminder system with a targetdue date for the next mammogram; PQRI II [id number] Dictating Physician: JAMES COTO MD Electronically Signed by: JAMES COTO MD Dic Date/Time: 04/20/19 1336 Sign date/Time: 04/20/19 1337 Nice Luann WATCH ENGINEER IMG BI PROCEDURES Final Result from Last 3 Months or Most Recently Relevant to Health Maintenance Insurance [employer] [address] [place], [place] [id number] [employer] [place] [id number] Care Teams Power Engineer Relationship Specialty Start Date End Date Gwendolyn Roth PCP - General 10/29/23
== END 2024-11-04 10:21 | disposition home or self-care (01) ==
LOC: HO.US 10:20
PROVIDERS: PCP Physician Assistant; Visit Provider Physician Assistant
DX: R94.5 Abnormal results of liver function studies (principal); D64.9 Anemia, unspecified
CPT/HCPCS: 76700; 76981

== ENCOUNTER → 2024-11-04 10:22 | Outpatient (BNV) | payer OTHER, SELFPAY | PROVIDERS: PCP Physician Assistant; Visit Provider Radiology Diagnostic Radiology | DX: K76.0 Fatty (change of) liver, not elsewhere classified (principal) | CPT/HCPCS: 76700 ==

== ENCOUNTER 2025-02-02 10:03 | Outpatient (REF) | payer OTHER, SELFPAY ==
--- OUTSIDE RECORDS SUMMARY | 2025-02-02 13:48 | XMS_ITS | Clinical Summary ---
Author Organization [facility] Address [address] [place] [address] Care Team Providers Care Crane Manager Name Role Phone Unavailable Primary Care Provider [...] intracranial flow-voids at the level of the [place] of [place] are preserved. The dural venous [...] Flu, Preservative Free 12/25/2022,2020,12/21/2019,2018,04/23/2017 Hep B, Adult/Adol ([id number]/RECOMBIVAX-ADULT) 07/22/2012,08/15/2011,07/16/2011 INFLUENZA, SEASONAL, INJECTABLE 12/26/19 16,01/12/2015,03/30/2014,2011 INFLUENZA, SEASONAL, INJECTA BLE, PRESERVATIVE FREE 01/12/2013 MMR (MMR II/Priorix) 06/12/2011,02/05/2011 TDAP 06/12/2023,06/12/2011 Td (adult),2 Lf tetanus toxo id (TDVAX), preservative free 02/05/2011 Family History Medical History Relation [...] 2014 Fecal DNA 2014 Flexible Sigmoidoscopy 2014 Imm-Pneumococcal 50+ (1 of 1 - PCV) 2019 Imm-Zoster, Recombinant (1 of 2) 2019 Tobacco Screening 12/26/2023 12/25/2022, 04/23/2017 Depression Annual Screen 2024 04/20/2015 Annual Wellness (Adult): Ind icated (All Coverage) 06/11/2024 06/12/2023, 08/26/2018, 04/23/2017, Additional history exists [id number] ( season) 2024 12/24/2023, 12/31/2022, 03/13/2021, Additional history exists Imm-Influenza (#1) 2024 12/24/2023, 1 , 02/20/2022, Additional history exists Dental Prophy 12/16/2024 12/15/2023, 05/22, 10/23/2022 Lipid Screening 12/24/2024 12/25/2023, 09/21, 06/18/2023, Additional history exists Hypertension Screening (#1) 03/25/2025 Diabetes Screening 12/24/2026 12/25/2023, 0 10/04/2023, 06/18/2023, Additional history exists Imm-DTaP/Tdap/Td (3 - Td or Tdap) 06/11/2033 06/12/2023, 06/12/2011, 02/05/2011 Imm-Hepatitis B Completed 07/22/2012, 07/23, 07/16/2011 HIV Screening Completed 01/20/2013 Hepatitis C Screening Completed 01/20/2013 Alcohol and Drug Screen Completed 03/25/19, 06/12/2023, [...] AM EDT) CHOLESTEROL, TOTAL 311(H) <200 mg/dL [facility] HDL CHOLESTEROL 40 > OR = 40 mg/dL [facility] TRIGLYCERIDES 2,415(H) <150 mg/dL [facility] Comment: Verified by repeat analysis. If a non-fasting specimen was collected, consider repeat triglyceride testing on a fasting specimen if clinically indicated. Bree et al. J. of Clin. Lipidol. 2015;9:129-169. There is increased risk of pancreatitis when the triglyceride concentration is very high (> or = 500 mg/dL, especially if > or = 1000 mg/dL). Bree et al. J. of Clin. Lipidol. 2015;9:129-169. LDL-CHOLESTEROL See Note [facility] Comment: LDL cholesterol not calculated. Triglyceride levels [...] LDL-C. Gabriele SS et al. CURTIS. 2013;310(19): 6186-9956 (http://education.Sonian/faq/PFA935) CHOL/HDLC RATIO 7.8(H) <5.0 (calc) [facility] NON-HDL CHOLESTEROL 271(H) <130 mg/dL (calc) [facility] Comment: Non-HDL level > or = 220 [...] AM EDT 12/25/2023 9:54 AM EDT Narrative [facility] - 12/26/2023 1:34 PM EDT FASTING:YES us Maribeth Campa PA-C LAB - BLOOD DRAW Final Resu lt [facility] [address] [place] [id number], [facility] [address] [place] [phone] * COMPREHENSIVE METABOLIC PANEL (12/25/2023 9:53 AM EDT) [facility] GLUCOSE 97 65 - 99 mg/dL [facility] Comment: Fasting reference interval UREA NITROGEN (BUN) 15 7 - 25 mg/dL [facility] CREATININE (blood) 1.14 0.70 - 1.30 mg/dL [facility] EGFR 76 > OR = 60 mL/min/1. 73m2 [facility] BUN/CREATININE RATIO SEE NOTE: [facility] Comment: Not Reported: BUN and Creatinine are within reference range. SODIUM 135 135 - 146 mmol/L [facility] POTASSIUM 3.7 3.5 - 5.3 mmol/L [facility] CHLORIDE 101 98 - 110 mmol/L [facility] CARBON DIOXIDE 23 20 - 32 mmol/L [facility] CALCIUM 9.7 8.6 - 10.3 mg/dL [facility] PROTEIN, TOTAL 7.3 6.1 - 8.1 g/dL [facility] ALBUMIN 4.9 3.6 - 5.1 g/dL [facility] GLOBULIN 2.4 1.9 - 3.7 g/dL (calc) [facility] ALBUMIN/GLOBULI N RATIO 2.0 1.0 - 2.5 (calc) [facility] BILIRUBIN, TOTAL 0.7 0.2 - 1.2 mg/dL [facility] ALKALINE PHOSPHATASE 46 35 - 144 U/L [facility] AST 32 10 - 35 U/L [facility] Comment: Results slightly increased due to lipemia. ALT 35 9 - 46 U/L [facility] Blood Blood / Unknown 12/25/2023 9 :53 AM EDT 12/25/2023 9:54 AM EDT Narrative [email or web address] - 12/26/2023 1:34 PM EDT FASTING:YES us Maribeth Campa PA-C LAB - BLOOD DRAW Final Resu lt [facility] [address] [address], [facility] [address] [place] [address] * HIV-1 & HIV-2 ANTIBODIES (01/20/2013 3:16 PM EDT) HIV 1 AND 2 ANTIBODY SCREEN NEGATIVE NEGATIVE [facility] Comment:Performer: [facility] (ML) Blood specimen (specimen) Blood / Unknown 01/20/2013 3:16 PM EDT 01/20/2013 3:18 PM EDT [facility] - 01/21/2013 8:07 AM EDT [facility] [address] [place] [address] [place] ID [id number] ORD# [id number] Mj Pond MD LAB - BLOOD DRAW Edited Performing Organization Address City/[facility]/ZIP Co de Phone Number [address] [address], [place] [phone] * (ABNORMAL) ACUTE HEPATITIS PANEL (01/20/2013 3:16 PM EDT) Pathologist [facility] HEPATITIS B SURFACE ANTIGEN NEGATIVE NEGATIVE [facility] Comment:Performer: [facility] (ML) HEPATITIS C VIRUS ANTIBODY NEGATIVE NEGATIVE [facility] Comment:Performer: [facility] (ML) HEPATITIS B CORE ANTIBODY IGM NEGATIVE NEGATIVE [facility] Comment:Performer: [facility] (ML) HEPATITIS A ANTIBODY TOTAL POSITIVE(A) NEGATIVE [facility] Comment:Performer: [facility] (ML) Blood specimen (specimen) Blood / Unknown 01/20/2013 3:16 PM EDT 01/20/2013 3:18 PM EDT [facility] - 01/20/2013 7:00 PM EDT [facility] [address] [place] [address] [place] [id number] ORD# [id number] Mj Pond MD LAB - BLOOD DRAW Edited [address] [address], [place] [phone] from Last 3 Months or Most Recently Relevant to Health Maintenance Insurance HEALTH SAF[employer] NET DENTAL [facility] [employer] [facility] Member Subscriber Plan / Payer ( fective 2024-Present) Name:Garcia Bunn Relation to Subscriber:Self Name:Garcia Bunn Payer ID:[id number] Type:Indemnity Address: [address] [address] [facility] SAFETY NET
[2025-02-02 14:08] LABS: MANUAL DIFF FLAG NO
[2025-02-02 14:18] LABS: Hematocrit 37.4 % (42.0-52.0); Hemoglobin 12.8 g/dl (14.0-18.0); Imm Gran Abs Auto 0.02 X10*3/uL (0.00-0.03); Imm Gran Pct Auto 0.4 % (0.0-0.4); Lymphocytes Absolute Auto 2.1 X10*3/uL (1.2-4.9); Mean Corpuscular HGB Conc 34.2 g/dl (31.0-36.0); Mean Corpuscular Hemoglobin 29.0 pg (27.0-33.0); Mean Corpuscular Volume 84.8 fL (80.0-98.0); NRBC Abs Auto 0.000 X10*3/uL (0.0-0.012); NRBC Pct Auto 0.0 /100WBC (0.0-0.2); Red Blood Count 4.41 X10*6/uL (4.60-5.80); White Blood Count 5.7 X10*3/uL (4.8-10.8)
[2025-02-02 14:24] LABS: Platelet Count 116 X10*3/uL (160-400)
[2025-02-02 14:49] LABS: Anion Gap 11 (12-20); Blood Urea Nitrogen 12 mg/dL (9-16); Calcium 9.3 mg/dL (8.4-10.2); Carbon Dioxide 26 mmol/L (22-29); Chloride 108 mmol/L (96-108); Cholesterol 165 mg/dL (<200); Estimated Glomerular Filt Rate > 60; HDL Cholesterol 47 mg/dL (>40); Potassium 3.8 mmol/L (3.3-5.1); Sodium 141 mmol/L (135-145); Triglycerides 458 mg/dL (<150); Uric Acid 6.9 mg/dL (3.4-7.0)
[2025-02-02 14:55] LABS: Erythrocyte Sedimentation Rate 5 MM/HR (0-15)
[2025-02-02 15:15] LABS: Appearance Urine Clear; Glucose Urine UA Negative (Negative); PH 6.5 (5.0-9.0); Specific Gravity - Urine 1.020 (1.005-1.025)
== END 2025-02-02 10:04 | disposition home or self-care (01) ==
LOC: HO.WFDLDS 10:03
PROVIDERS: PCP Physician Assistant; Visit Provider Physician Assistant
DX: M25.521 Pain in right elbow (principal); M25.522 Pain in left elbow; M25.50 Pain in unspecified joint; M79.10 Myalgia, unspecified site; I10 Essential (primary) hypertension; E78.5 Hyperlipidemia, unspecified; R79.89 Other specified abnormal findings of blood chemistry; D61.818 Other pancytopenia; R30.0 Dysuria; R76.89 Other specified abnormal immunological findings in serum; Z79.899 Other long term (current) drug therapy
CPT/HCPCS: 36415; 80048; 80061; 81003; 82550; 84550; 85025; 85652; 86140; 99212

== ENCOUNTER 2025-02-02 10:03 | Outpatient (AMB) | payer OTHER, SELFPAY ==
--- NOTE | 2025-02-02 10:15 | MHC.PC.OV ---
Vital Signs 02/02/25 10:18 Height 5 ft 11 in Weight 183 lb BMI 25.5 BP 126/82 Blood Pressure Location Rt brachial Position Sitting Respiration 14 Pulse 75 Pulse Source Pulse Oximeter Temp 98.3 F Temp Source Oral Pulse Oximetry (%) 99 Oxygen Delivery Method Room Air Intake Visit Reasons: meds and labs/arm pains Intake Note: Medication follow up. Did not receive Atorvastatin, issue at the pharmacy Batch Blender Required: Yes Batch Blender Language: [facility] Batch Blender Name: [id number] Allergies No Known Allergies Allergy (Verified 02/02/25 10:16) Medication List - Last Reconciled 02/02/25 by Carrie Govea PA-C allopurinol 300 mg PO DAILY bisacodyl (Dulcolax (bisacodyl)) 20 mg (4 x 5 mg) PO ONCE 1 day diclofenac potassium 50 mg PO BID diclofenac sodium 1% (Voltaren Arthritis Pain) 4 grams topical QID fenofibrate micronized 200 mg PO DAILY losartan 50 mg PO DAILY polyethylene glycol 3350 (Miralax) 238 grams PO ONCE rosuvastatin (Crestor) 20 mg PO DAILY Tobacco use date assessed: 10/28/24 Dental Screening Dental Screen Date: 06/02/24 HPI meds and labs/arm pains HPI Details Patient is a 54-year-old male who presents today for a follow up. Wan Batch Blender is used today- ID [id number]- Mj CV: Bp today is 126/82. He is tolerating the 50 mg without difficulty. He states that he is tolerating the Crestor and fenofibrate together. He is taking them and has been consistent for the last couple months. He was referred to cardiology for the dyslipidemia. Musculoskeletal: He Had follow up arranged with Orthopedics for bilateral shoulder pain but only saw them once and did not go back. He has a hx of RA+ and is scheduled next month with rheumatology (unfortunately, locally there is a very long wait time to be seen). -he states today his both elbows have been very painful for 15-20 days along with his shoulders. He states it feels like a sharp pain in the upper arm and lower arm. He states it feels like a nerve ? but does not describe burning, numbness, tingling or shooting pain. Other times it feels like an achy pain. He states it feels like its in ?the veins. When he pushes or pulls he feels like the pain is worse. He states the sides feel the same in level of pain. He states the pain does not appear to be improving. He has not tried anything for this. No rashes, joint swelling, no change in urination, no fever or chills. No abdominal pain, neck pain or headaches. GI: His LFTs have remained elevated. He does not drink alcohol. He has not been sick. Overall he states he does not get much abdominal pain or bloating. He does have pain he states in the right upper abdomen only if he pushes on it. He did have a liver u/s showing fatty liver. He did recently see GI but this is only to review colonoscopy prep and then was rebooked for the liver elevatation. He is scheduled next month. No weight loss, nausea, vomiting or diarrhea. Heme/Onc: Has followed with Heme-Onc for pancytopenia and told to avoid etoh and follow up in 1 year. 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 [employer] Current occupational exposures/hazards: Yes (Works around chemicals) Cognitive needs: No Hearing needs: No Vision needs: Yes (glasses) Questionnaire Thrive Questionnaire Date Thrive assessed: 06/02/24 I am a: Patient What is your living situation today?: I choose not to answer this question Within the past 12 months, did the food you bought not last and you didn't have the money to get more?: I choose not to answer this question Within the past 12 months, did you worry whether your food would run out before you got money to buy more?: I choose not to answer this question Do you have trouble paying for medicines?: I choose not to answer this question Do you have trouble getting transportation to medical appointments?: I choose not to answer this question Do you have trouble paying your heating and electricity bill?: I choose not to answer this question Do you have trouble taking care of your child, family member or friend?: I choose not to answer this question Do you have trouble with day-to-day activities such as bathing, preparing meals, shopping, managing finances, etc.?: I choose not to answer this question Are you currently unemployed and looking for a job?: I choose not to answer this question Are you interested in more education?: I choose not to answer this question Please select the resources that you would like help with: None Currently or been in a relationship where the following occur: I choose not to answer THRIVE Score: 0 TESS-7 AMB Questionnaire TESS-7 Date TESS - 7 assessed: 06/02/24 Source: Developed by Drs. Sky Meek, Erika Chávez, Jessee Joel and colleagues, with an educational jessica from [employer]. Physical exam (Primary Care) Vital Signs: Last Vital Signs Temp 98.3 F 02/02/25 10:18 Pulse 75 02/02/25 10:18 Resp 14 02/02/25 10:18 BP 126/82 02/02/25 10:18 Pulse Ox 99 02/02/25 10:18 Oxygen Delivery Method Room Air 02/02/25 10:18 BMI result Body Mass Index 25.5 Tobacco/Smoking Status: Tobacco use Status Tobacco use date assessed 10/28/24 02/02/25 10:22 Patient Tobacco Use Status Never used Tobacco 02/02/25 10:22 e-Cigarette/Vaping Use Never Used 02/02/25 10:22 Thrive Assessment: Date of Thrive Assessment Date Thrive assessed 06/02/24 02/02/25 10:22 Currently or been in a relationship where the following occur: I choose not to answer Const Orientation/consciousness: patient oriented x3 HENMT Ears: hearing grossly normal bilaterally Neck Thyroid: Thyroid normal Lymphatic: no lymphadenopathy noted Resp Auscultation: clear to auscultation bilaterally Cardio Rate: regular rate Rhythm: regular rhythm Heart sounds: S1 normal heart sound present and S2 normal heart sound present GI Inspection: Yes normal to inspection Palpation (GI): Soft to palpation and Other GI palpation findings present (nontender, no cva tenderness) Auscultation: normoactive bowel sounds Rectal Exam - Male: Yes deferred Skin General skin exam: no rashes or lesions noted Neuro General: patient oriented x3, gait normal and no focal motor deficits Extrem Other: strength intact. sensation intact. General: Yes normal to inspection, Yes full ROM, Yes capillary refill normal and No muscle atrophy Results Reviewed Results Reviewed: Laboratory Tests 06/03/24 09/23/24 10/29/24 07:34 11:06 06:20 WBC 5.6 RBC 4.74 Hgb 13.6 L Hct 39.7 L Plt Count 156 L D ESR 9 Sodium 140 Potassium 3.8 Chloride 106 Carbon Dioxide 23 Anion Gap 15 BUN 16 Creatinine 0.92 Estimated GFR > 60 Random Glucose 105 Calcium 9.4 Iron 89 TIBC 328 % Saturation 27 Unsat Iron Binding 239 Total Bilirubin 0.8 Direct Bilirubin < 0.1 GGT 103 H AST 48 H ALT 65 H Alkaline Phosphatase 60 Total Creatine Kinase 140 Total Protein 8.1 H Albumin 5.0 Jyvki-5-Ojokigidcgy 116 Ceruloplasmin 13 L Triglycerides 1233 H Cholesterol 225 H HDL Cholesterol 38 L Vitamin B12 389 Folate 7.9 Rheumatoid Factor 16.0 H LUANN Screen NEGATIVE FINDINGS: Liver: The right lobe of the liver measures 14.1 cm in size. The left lobe of the liver measures 8.1 cm in size. The liver demonstrates increased echotexture, consistent with steatosis. No focal mass or intrahepatic biliary ductal dilatation is identified. There is normal hepatopedal flow in the portal vein. Ultrasound elastography of the liver was performed with 10 separate measurements of the liver parenchyma with the patient in the supine position. Measurements were obtained approximately 2 cm below Rodney's capsule and perpendicular to the capsule. The median shear wave velocity is 1.71 m/s. The interquartile range/median (IQR/median) is 0.06. Gallbladder and biliary tree: The gallbladder is unremarkable, without evidence of calculi, wall thickening, or pericholecystic fluid. There is no sonographic Muhammad sign. The common bile duct is normal in caliber measuring 4 mm. Kidneys: The right kidney measures 10.7 cm in length. The left kidney measures 10.5 cm in length. The kidneys are unremarkable, without evidence of masses, hydronephrosis, or calculi. Pancreas: The pancreatic head, neck, and body are unremarkable. The pancreatic tail is obscured by bowel gas. Spleen: The spleen is normal in size and contour, measuring 11.9 cm in length. Abdominal aorta and inferior vena cava: The visualized portions of the abdominal aorta and inferior vena cava are normal in caliber. There is no free fluid in the abdomen. US/US abdomen comp w elastography IMPRESSION: Hepatic steatosis. Coding Level of Care Code Est Pt Level 4 (78211) Complex EM visit Add On G2211 Diagnoses Primary hypertension I10 Hypertension type: primary hypertension Dyslipidemia E78.5 Elevated LFTs R79.89 Pancytopenia D61.818 Polyarthralgia M25.50 Bilateral elbow joint pain M25.521; M25.522 Myalgia M79.10 Assessment & Plan Assessment & Plan (1) HTN (hypertension): Code(s): I10 - Essential (primary) hypertension Category: Medical Qualifiers: Hypertension type: primary hypertension Qualified Code(s): I10 - Essential (primary) hypertension Plan: bp better with higher dose continue current plan (2) Dyslipidemia: Code(s): E78.5 - Hyperlipidemia, unspecified Category: Medical Plan: tolerating crestor and fenofibrate will check ck given joint pains/muscle aches. States he gets flare ups of this kind of pain (3) Elevated LFTs: Code(s): R79.89 - Other specified abnormal findings of blood chemistry Category: Medical Plan: will follow up soon with GI. Urged him to keep this appointment will recehck today (4) Pancytopenia: Code(s): D61.818 - Other pancytopenia Category: Medical Plan: will check labs today following with hematology (5) Polyarthralgia: Code(s): M25.50 - Pain in unspecified joint Category: Medical Plan: labs ordered taking meloxicam daily prn has follow up with rheum (6) Bilateral elbow joint pain: Code(s): M25.521 - Pain in right elbow; M25.522 - Pain in left elbow Category: Medical Plan: as above had neg xrays will try meloxicam (7) Myalgia: Code(s): M79.10 - Myalgia, unspecified site Category: Medical Plan: as above and short term f.u or sooner if anything worsens or changes. Orders: Orders Lipid Panel Today M25.50 - Pain in unspecified joint, M25.521 - Pain in right elbow, M25.522 - Pain in left elbow, M79.10 - Myalgia, unspecified site, R76.8 - Other specified abnormal immunological findings in serum C Reactive Protein Today D61.818 - Other pancytopenia, E78.5 - Hyperlipidemia, unspecified, I10 - Essential (primary) hypertension, M25.50 - Pain in unspecified joint, R79.89 - Other specified abnormal findings of blood chemistry Uric Acid Today D61.818 - Other pancytopenia, E78.5 - Hyperlipidemia, unspecified, I10 - Essential (primary) hypertension, M25.50 - Pain in unspecified joint, R79.89 - Other specified abnormal findings of blood chemistry Creatine Kinase Total Today M25.50 - Pain in unspecified joint, M25.521 - Pain in right elbow, M25.522 - Pain in left elbow, M79.10 - Myalgia, unspecified site, R76.8 - Other specified abnormal immunological findings in serum Basic Metabolic Panel Today M25.50 - Pain in unspecified joint, M25.521 - Pain in right elbow, M25.522 - Pain in left elbow, M79.10 - Myalgia, unspecified site, R76.8 - Other specified abnormal immunological findings in serum Complete Blood Count Auto Diff Today M25.50 - Pain in unspecified joint, M25.521 - Pain in right elbow, M25.522 - Pain in left elbow, M79.10 - Myalgia, unspecified site, R76.8 - Other specified abnormal immunological findings in serum UA CC w/rflx Micro + Cult Today M25.50 - Pain in unspecified joint, M25.521 - Pain in right elbow, M25.522 - Pain in left elbow, M79.10 - Myalgia, unspecified site, R30.0 - Dysuria, R76.8 - Other specified abnormal immunological findings in serum Erythrocyte Sedimentation Rate Today D61.818 - Other pancytopenia, E78.5 - Hyperlipidemia, unspecified, I10 - Essential (primary) hypertension, M25.50 - Pain in unspecified joint, R79.89 - Other specified abnormal findings of blood chemistry Medications: New meloxicam 15 mg PO DAILY 30 tabs 2RF Discontinued allopurinol Discontinued Reason: Doctor's Order 300 mg PO DAILY 90 tabs 3RF diclofenac potassium Discontinued Reason: Doctor's Order 50 mg PO BID 180 tabs 1RF
[2025-02-02 10:18] VITALS: BP 126/82; PULSE 75; RESP 14; TEMP 36.8; O2SAT 99; BMI 25.5
== END 2025-02-02 10:59 | disposition home or self-care (01) ==
LOC: HO.HMCFM 10:04
PROVIDERS: PCP Physician Assistant; Visit Provider Physician Assistant
DX: I10 Essential (primary) hypertension (principal); E78.5 Hyperlipidemia, unspecified; R79.89 Other specified abnormal findings of blood chemistry; D61.818 Other pancytopenia; M25.50 Pain in unspecified joint; M25.521 Pain in right elbow; M25.522 Pain in left elbow; M79.10 Myalgia, unspecified site

== ENCOUNTER 2025-03-08 10:53 | Outpatient (AMB) | payer OTHER, SELFPAY ==
[2025-03-08 11:02] VITALS: BP 150/90; PULSE 91; O2SAT 95; BMI 25.4
--- NOTE | 2025-03-08 11:02 | MHC.OFFVIS ---
Vital Signs 03/08/25 11:02 Height 5 ft 11 in Weight 181 lb 14.102 oz BMI 25.4 BP 150/90 H Blood Pressure Location Lt brachial Position Sitting Pulse 91 Pulse Source Pulse Oximeter Pulse Oximetry (%) 95 Oxygen Delivery Method Room Air Intake Visit Reasons: joint pain Intake Note: NEW patient presents today for joint pain. Certified Shorthand Reporter Name: [email or web address] [id number] Information Interpreted: non-clinical & clinical Accompanied by: Self / Same As Patient Allergies No Known Allergies Allergy (Verified 03/08/25 11:05) HPI HPI joint pain: Details: [place] speaking. Certified Shorthand Reporter used. New patient referral. +rheumatoid arthritis. He is having pain in chronic bilateral shoulders and elbows. He saw ortho 07/2024. PT was ordered but he did not start. He is not self-medicated. Constant pain in shoulders and elbows. He feels it more at home with ache. During the day his attention is not on the pain at work. Activity with hand movements make the pain worse. Pain with dressing. Recently he started experience lower back pain. Wrist is stiff in the morning. When he had muscle pain in forearms/elbow, he was prescribed meloxicam with benefit. Diclofenac gel 1% daily was ineffective for elbow and shoulder pain. Works [employer] maintenance. No family history of rheumatological disease Medical history and medication list reviewed with patient. 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 Good respiratory effort Skin: No lesions seen MSK: Localized tenderness to left AC. Tender right posterior shoulder. He has localized tenderness of bilateral lateral epicondyles. No pain with resisted wrist extension. No synovitis or dactylitis. Normal range of motion of upper extremities and lower extremities. No ankle or MTP tenderness. Vital Signs: Last Vital Signs Pulse 91 03/08/25 11:02 BP 150/90 H 03/08/25 11:02 Pulse Ox 95 03/08/25 11:02 Oxygen Delivery Method Room Air 03/08/25 11:02 BMI result Body Mass Index 25.4 Results Reviewed Results Reviewed: X-rays in [facility] reviewed. Mild AC joint arthritis bilateral. Elbow x-rays are normal. Assessment & Plan Assessment & Plan (1) Rheumatoid factor positive: Comment: Low titer positive without clinical signs of inflammatory arthritis. Code(s): R76.8 - Other specified abnormal immunological findings in serum Category: Medical Plan: No further rheumatological workup is indicated at this time (2) Myofascial low back pain: Code(s): M54.50 - Low back pain, unspecified Category: Medical Plan: PT ordered Restart meloxicam 15 mg daily. He has transaminitis likely due to hepatic steatosis noted on ultrasound October 2024. If pain improves by next visit, I will discontinue meloxicam. Return to clinic in 3 months (3) Lateral epicondylitis of both elbows: Code(s): M77.11 - Lateral epicondylitis, right elbow; M77.12 - Lateral epicondylitis, left elbow Category: Medical Plan: Elbow support band prescribed PT ordered Return to clinic in 3 months (4) Arthritis of left acromioclavicular joint: Code(s): M19.012 - Primary osteoarthritis, left shoulder Category: Medical Plan: PT ordered for shoulder strengthening Restart meloxicam 15 mg daily Return to clinic in 3 months (5) Right rotator cuff tendinitis: Code(s): M75.81 - Other shoulder lesions, right shoulder Category: Medical Plan: PT ordered Restart meloxicam 15 mg daily Return to clinic in 3 months Orders: Orders PT Evaluation and Treatment Today M19.012 - Primary osteoarthritis, left shoulder, M54.50 - Low back pain, unspecified, M75.81 - Other shoulder lesions, right shoulder, M77.11 - Lateral epicondylitis, right elbow, M77.12 - Lateral epicondylitis, left elbow Medications: New arm brace As directed Bilateral elbow support band Dx: lateral epicondylitis 2 ea 0RF Refilled meloxicam 15 mg PO DAILY 30 tabs 2RF Coding Level of Care Code New Pt Level 4 (49144) Diagnoses Rheumatoid factor positive R76.8 Myofascial low back pain M54.50 Lateral epicondylitis of both elbows M77.11; M77.12 Arthritis of left acromioclavicular joint M19.012 Right rotator cuff tendinitis M75.81
== END 2025-03-08 12:11 | disposition home or self-care (01) ==
LOC: HO.RHES 10:53
PROVIDERS: PCP Physician Assistant; Visit Provider Internal Medicine Rheumatology
DX: R76.89 Other specified abnormal immunological findings in serum (principal); M54.50 Low back pain, unspecified; M77.11 Lateral epicondylitis, right elbow; M77.12 Lateral epicondylitis, left elbow; M19.012 Primary osteoarthritis, left shoulder; M75.81 Other shoulder lesions, right shoulder
CPT/HCPCS: 99204

== ENCOUNTER → 2025-03-08 10:53 | Outpatient (BNVA) | payer OTHER, SELFPAY | PROVIDERS: PCP Physician Assistant; Visit Provider Internal Medicine Rheumatology | DX: M19.012 Primary osteoarthritis, left shoulder (principal); G89.29 Other chronic pain; M75.81 Other shoulder lesions, right shoulder; M77.11 Lateral epicondylitis, right elbow; M77.12 Lateral epicondylitis, left elbow; M54.50 Low back pain, unspecified; R76.81 Abnormal rheumatoid factor and anti-citrullinated protein antibody without rheumatoid arthritis | CPT/HCPCS: 99202 ==